=== PATIENT | female | born 1955 | race Caucasian/White ===

== ENCOUNTER → 2016-08-10 | Outpatient (CLI) | payer MEDICARE ==
--- NOTE | 2016-08-14 08:14 | MM ---
Reason for exam: screening (asymptomatic). Last mammogram was performed 2 years and 3 months ago. History: Patient is postmenopausal and is nulliparous. Physical Findings: A clinical breast exam by your physician is recommended on an annual basis and results should be correlated with mammographic findings. MG Screening Mammo w CAD Bilateral CC and MLO view(s) were taken. Prior study comparison: May 17, 2014, bilateral MG screening mammo w CAD. June 09, 2012, bilateral digital screening mammo w/CAD. June 04, 2011, bilateral digital screening mammo w/CAD. The breast tissue is heterogeneously dense. This may lower the sensitivity of mammography. There is no discrete abnormality. No significant changes when compared with prior studies. ASSESSMENT: Negative, BI-RAD 1 RECOMMENDATION: Routine screening mammogram of both breasts in 1 year.
== END | disposition home or self-care (01) ==
LOC: RADMAMWWP 12:56
PROVIDERS: ATTEND Internal Medicine
DX: Z12.31 Encounter for screening mammogram for malignant neoplasm of breast (principal)

== ENCOUNTER → 2017-08-28 | Outpatient (CLI) | payer MEDICARE, OTHER ==
--- NOTE | 2017-08-29 13:03 | MM ---
Reason for exam: screening (asymptomatic). Last mammogram was performed 1 year and 1 month ago. History: Patient is postmenopausal and is nulliparous. Physical Findings: A clinical breast exam by your physician is recommended on an annual basis and results should be correlated with mammographic findings. MG 3D Screening Mammo W/Cad Bilateral CC and MLO view(s) were taken. Prior study comparison: August 10, 2016, bilateral MG screening mammo w CAD. May 17, 2014, bilateral MG screening mammo w CAD. The breast tissue is heterogeneously dense. This may lower the sensitivity of mammography. Stable benign calcifications. There is chronic nodularity in the right breast. No significant changes when compared with prior studies. ASSESSMENT: Benign, BI-RAD 2 RECOMMENDATION: Routine screening mammogram of both breasts in 1 year.
== END | disposition home or self-care (01) ==
LOC: RADMAMWWP 12:54
PROVIDERS: ATTEND Internal Medicine
DX: Z12.31 Encounter for screening mammogram for malignant neoplasm of breast (principal)
CPT/HCPCS: 77063; 77067

== ENCOUNTER → 2018-08-29 | Outpatient (CLI) | payer MEDICARE, OTHER ==
--- NOTE | 2018-09-02 09:35 | MM ---
Reason for exam: screening (asymptomatic). Last mammogram was performed 1 year ago. History: Patient is postmenopausal and is nulliparous. Physical Findings: A clinical breast exam by your physician is recommended on an annual basis and results should be correlated with mammographic findings. MG 3D Screening Mammo W/Cad Bilateral CC and MLO view(s) were taken. Prior study comparison: August 28, 2017, bilateral MG 3d screening mammo w/cad. August 10, 2016, bilateral MG screening mammo w CAD. The breast tissue is heterogeneously dense. This may lower the sensitivity of mammography. There is chronic nodularity in the right breast. No significant changes when compared with prior studies. ASSESSMENT: Negative, BI-RAD 1 RECOMMENDATION: Routine screening mammogram of both breasts in 1 year.
== END ==
LOC: RADMAMWWP 12:34
PROVIDERS: ATTEND Internal Medicine
DX: Z12.31 Encounter for screening mammogram for malignant neoplasm of breast (principal)
CPT/HCPCS: 77063; 77067

== ENCOUNTER → 2018-10-23 | Outpatient (CLI) | payer MEDICARE, OTHER ==
--- NOTE | 2018-10-23 15:11 | XR ---
EXAMINATION TYPE: XR chest 2V DATE OF EXAM: 10/23/2018 COMPARISON: 05/13/2013 TECHNIQUE: PA and lateral views submitted. HISTORY: Shortness of breath FINDINGS: The lungs are clear and there is no pneumothorax, pleural effusion, or focal pneumonia. Linear righ t perihilar subsegmental density most typical scar or atelectasis. No overt failure. Mild degenerativ e change of the spine. IMPRESSION: 1. No acute process.
== END | disposition home or self-care (01) ==
LOC: RADXRMAIN 14:37
PROVIDERS: ATTEND Internal Medicine
DX: R06.02 Shortness of breath (principal)
CPT/HCPCS: 71046

== ENCOUNTER → 2020-09-13 | Outpatient (CLI) | payer MEDICARE ==
[2020-09-13 12:09] LABS: HCT 41.4 % (34.0-46.0); HGB 13.6 gm/dL (11.4-16.0); MCH 30.2 pg (25.0-35.0); MCHC 32.8 g/dL (31.0-37.0); MCV 92.1 fL (80.0-100.0); Mean Platelet Volume 7.3; Platelet Count 181 k/uL (150-450); RBC 4.49 m/uL (3.80-5.40); RDW 12.7 % (11.5-15.5); WBC 4.9 k/uL (3.8-10.6)
[2020-09-13 12:16] LABS: Potassium 4.9 mmol/L (3.5-5.1)
== END ==
LOC: LABPAT 11:30
PROVIDERS: ATTEND Internal Medicine Cardiovascular Disease
DX: Z01.812 Encounter for preprocedural laboratory examination (principal); R94.39 Abnormal result of other cardiovascular function study
CPT/HCPCS: 36415; 80051; 82565; 83735; 84520; 85027

== ENCOUNTER 2020-09-14 06:26 | Day surgery (SDC) | payer MEDICARE, OTHER ==
[2020-09-13 13:24] VITALS: BMI 34.9
[~2020-09-14 06:26] MED LIST: ALPRAZolam 0.25 MG TAB PO PRN; ALPRAZolam 0.5 MG TAB PO PRN; NITROGLYCERIN SL TABS 0.4 MG TAB SUBLINGUAL PRN; SODIUM CHLORIDE 0.9% 1,000 ML in EMPTY BAG 1 BAG IV ONE
[2020-09-14] MEDS ORDERED: ATORVASTATIN 80 MG TAB PO ONE (07:00)
[2020-09-14] MEDS ORDERED: ASPIRIN 325 MG TAB PO ONE (07:00)
[2020-09-14 07:06] VITALS: RESP 18; TEMP 98.6
[2020-09-14] MEDS ORDERED: VERAPAMIL 2.5 MG/ML 2 ML AMP ONE (08:01)
[2020-09-14] MEDS ORDERED: LIDOCAINE 1% INJ 10MG/ML (20 ML MDV) ONE (08:01)
[2020-09-14] MEDS ORDERED: fentaNYL (PF) 50 MCG/ML 2 ML AMP ONE (08:11)
[2020-09-14] MEDS ORDERED: fentaNYL (PF) 50 MCG/ML 2 ML AMP IV ONE (08:15)
[2020-09-14] MEDS ORDERED: LIDOCAINE 1% INJ 10MG/ML (20 ML MDV) SQ ONE (08:16)
[2020-09-14] MEDS ORDERED: VERAPAMIL SYRINGE (5 MG/10 ML) INTRAARTER ONE (08:17)
[2020-09-14] MEDS ORDERED: MIDAZOLAM 2 MG/2 ML VIAL IV ONE (08:20)
[2020-09-14] MEDS ORDERED: HEPARIN SODIUM 1,000 UN/ML (10ML VL) ONE (08:22)
[2020-09-14] MEDS ORDERED: IOPAMIDOL-370 125ML BTL INJ ONE (08:26)
[2020-09-14] MEDS ORDERED: HEPARIN SODIUM 1,000 UN/ML (10ML VL) IV ONE (08:26)
[2020-09-14] MEDS ORDERED: RX INFO: IV CONTRAST WAS GIVEN 1 EACH MISC MISCELLANE PRN (08:37)
[2020-09-14] MEDS ORDERED: SODIUM CHLORIDE 0.9% 1,000 ML IV SCH (08:45)
[2020-09-14] MEDS ORDERED: PERPHENAZINE 4 MG TAB PO SCH (09:00)
[2020-09-14] MEDS ORDERED: NON FORMULARY DRUG (Rosuvastatin Calcium [Rosuvastatin Calcium] 5 MG Tablet) PO SCH (09:00)
[2020-09-14] MEDS ORDERED: PANTOPRAZOLE 40 MG TABLET PO SCH (09:00)
[2020-09-14] MEDS ORDERED: GABAPENTIN 400 MG CAP PO SCH (09:00)
[2020-09-14] MEDS ORDERED: LEVOTHYROXINE 88 MCG TAB PO SCH (09:00)
[2020-09-14] MEDS ORDERED: PROCHLORPERAZINE 10 MG TAB PO SCH (09:00)
--- NOTE | 2020-09-14 09:30 | CC ---
CARDIAC CATHETERIZATION REPORT Mrs. Richardson is a 65-year-old female with known history of hyperlipidemia, who has been complaining of chest discomfort and had a myocardial perfusion imaging that revealed a partially reversible inferior wall defect. In view of that, recommendation was made regarding cardiac catheterization. The procedure as well as the risks and complications were discussed with the patient who is in full understanding and agreement. PROCEDURE: Patient was brought to the collaborating supervising physician in a fasting semi-sedated state after receiving fentanyl and Benadryl and achieving moderate conscious sedated state. Using Xylocaine anesthesia and Seldinger technique, a 6-Tunisian sheath was introduced in the right radial artery. Selective right and left coronary angiography performed using 5-Tunisian 3.5 bend right and left Josefa catheter. Multiple views of the coronary artery including hemiaxial views were obtained. The right Josefa was used to cross the aortic valve and left ventricular end-diastolic pressure was calculated. Following that, catheter and sheath were removed. Hemostasis was obtained with deployment of TR band. There was no immediate complication. The patient was returned to her room in stable condition. Of note, the patient received 5000 units of intravenous heparin as well as intra-arterial verapamil. FINDINGS: LEFT MAIN: This is a short size vessel, bifurcating in left circumflex, left anterior descending artery. The left main coronary artery has no evidence of high-grade stenosis. LEFT ANTERIOR DESCENDING ARTERY: This vessel gives rise to a very proximal large diagonal branch that is acting up as a parallel LAD. The diagonal branch and the LAD have no evidence of high-grade stenosis. LEFT CIRCUMFLEX: This is a large nondominant vessel giving rise to 2 obtuse marginal branches. The second one is distal in distribution. The left circumflex as well as branches have no evidence of obstructive coronary artery disease. RIGHT CORONARY ARTERY: This is a large dominant vessel bifurcating distally PDA and posterolateral segment and branches. The right coronary artery as well as branches have no evidence of obstructive coronary disease. LEFT VENTRICULOGRAM: Left ventriculogram was not performed. HEMODYNAMICS: There was no gradient across the aortic valve. The left ventricular end-diastolic pressure was 14-16 mmHg. CONCLUSION: 1. Normal coronary arteries. 2. Right dominance. RECOMMENDATION: In view of finding anatomy, I recommend to continue medical therapy with aggressive coronary risk modifications being initiated. Those findings and recommendation were discussed with the patient and she is in full understanding and agreement. Duration of sedation is 12 minutes. MMODL / IJN: [id number] /
--- NOTE | 2020-09-14 09:34 | LTR ---
September 14, 2020 Re: Ofelia Richardson Dear Dr. Canales: I had the opportunity to perform cardiac catheterization on Mrs. Richardson at [facility] on the 14 of September and a full copy of the procedure note will be forwarded to you. In brief, she was found to have no evidence of high grade stenosis and based on those findings, I will continue on the present medical regimen. Thank you again for allowing me the opportunity to participate in her care. Please feel free to call for any questions or concerns. Sincerely yours, Mario Schrader MD MMEZRAL / JAMAALN: [id number] /
[2020-09-14] MEDS ORDERED: SUCRALFATE 1 GM TAB PO SCH (12:30)
[2020-09-14 12:48] VITALS: BP 114/72; PULSE 72
[2020-09-14] MEDS ORDERED: CYCLOBENZAPRINE 10 MG TAB PO SCH (21:00)
[2020-09-14] MEDS ORDERED: clonazePAM 0.5 MG TAB PO SCH (21:00)
[2020-09-14] MEDS ORDERED: NON FORMULARY DRUG (Trazodone Hcl [Trazodone Hcl] 150 MG Tablet) PO SCH (21:00)
[2020-09-14] MEDS ORDERED: QUEtiapine 400 MG TAB PO SCH (21:00)
[2020-09-14] MEDS ORDERED: MELATONIN 3 MG TABLET PO SCH (21:00)
[2020-09-15] MEDS ORDERED: ASPIRIN 81 MG PO SCH (09:00)
== END 2020-09-14 12:35 | disposition home or self-care (01) ==
LOC: CATHCVL 06:26
PROVIDERS: ATTEND Internal Medicine Interventional Cardiology
DX: R07.89 Other chest pain (principal); R06.00 Dyspnea, unspecified; R94.39 Abnormal result of other cardiovascular function study; E78.2 Mixed hyperlipidemia; E78.00 Pure hypercholesterolemia, unspecified; Z79.1 Long term (current) use of non-steroidal anti-inflammatories (NSAID); Z79.82 Long term (current) use of aspirin; Z79.890 Hormone replacement therapy; Z79.899 Other long term (current) drug therapy
CPT/HCPCS: 93458; C1769; C1894; J2250; J2001; J3010; J1644; Q9967

== ENCOUNTER → 2021-01-26 | Outpatient (CLI) | payer MEDICARE, OTHER ==
--- NOTE | 2021-01-27 13:34 | MM ---
Reason for exam: screening (asymptomatic). Last mammogram was performed 2 years and 5 months ago. History: Patient is postmenopausal and is nulliparous. Physical Findings: A clinical breast exam by your physician is recommended on an annual basis and results should be correlated with mammographic findings. MG 3D Screening Mammo W/Cad Bilateral CC and MLO view(s) were taken. Prior study comparison: August 29, 2018, bilateral MG 3d screening mammo w/cad. August 28, 2017, bilateral MG 3d screening mammo w/cad. The breast tissue is heterogeneously dense. This may lower the sensitivity of mammography. Benign appearing bilateral calcifications. There is chronic nodularity in the right breast. No significant changes when compared with prior studies. ASSESSMENT: Benign, BI-RAD 2 RECOMMENDATION: Routine screening mammogram of both breasts in 1 year.
== END | disposition home or self-care (01) ==
LOC: RADMAMWWP 14:52
PROVIDERS: ATTEND Internal Medicine
DX: Z12.31 Encounter for screening mammogram for malignant neoplasm of breast (principal); Z78.0 Asymptomatic menopausal state
CPT/HCPCS: 77063; 77067

== ENCOUNTER → 2021-10-09 | Outpatient (CLI) | payer MEDICARE, OTHER ==
--- NOTE | 2021-10-09 15:43 | US ---
EXAMINATION TYPE: US venous doppler duplex LE BI DATE OF EXAM: 10/09/2021 3:27 PM COMPARISON: NONE CLINICAL HISTORY: 66-year-old female M79.662, M79.661 PAIN IN BOTH LOWER LIMBS. SIDE PERFORMED: Bilateral TECHNIQUE: The lower extremity deep venous system is examined utilizing real time linear array sonog danny with graded compression, doppler sonography and color-flow sonography. FINDINGS: VESSELS IMAGED: Common Femoral Vein Deep Femoral Vein Greater Saphenous Vein * Femoral Vein Popliteal Vein Small Saphenous Vein * Proximal Calf Veins (* superficial vessels) Right Leg: Negative for DVT Left Leg: Negative for DVT IMPRESSION: No evidence for DVT within the bilateral lower extremities imaged from the groin to the upper calves.
== END | disposition home or self-care (01) ==
LOC: RADUSWWP 14:35
PROVIDERS: ATTEND Internal Medicine
DX: M79.662 Pain in left lower leg (principal); M79.661 Pain in right lower leg
CPT/HCPCS: 93970

== ENCOUNTER → 2022-02-01 | Outpatient (CLI) | payer MEDICARE ==
--- NOTE | 2022-02-02 14:11 | MM ---
Reason for Exam: Screening (asymptomatic). Last screening mammogram was performed 12 month(s) ago. Patient History: Menarche at age 13. Patient has no children. Postmenopausal. Risk Values: Julieta 5 year model risk: 1.8%. NCI Lifetime model risk: 6.9%. Prior Study Comparison: 08/28/2017 Bilateral Screening Mammogram, [facility]. 08/29/2018 Bilateral Screening Mammogram, [facility]. 01/26/2021 Bilateral Screening Mammogram, [facility]. Tissue Density: The breast tissue is heterogeneously dense. This may lower the sensitivity of mammography. Findings: Analyzed By CAD. There is no suspicious group of microcalcifications or new suspicious mass in either breast. Benign-appearing bilateral calcifications. Chronic nodularity in the right breast. No significant change from prior examination. Overall Assessment: Benign, BI-RAD 2 Management: Screening Mammogram of both breasts in 1 year. A clinical breast exam by your physician is recommended on an annual basis and results should be correlated with mammographic findings. Electronically signed and approved by: Neno Peguero D.O.
== END | disposition home or self-care (01) ==
LOC: RADMAMWWP 14:11
PROVIDERS: ATTEND Internal Medicine
DX: Z12.31 Encounter for screening mammogram for malignant neoplasm of breast (principal); Z78.0 Asymptomatic menopausal state
CPT/HCPCS: 77063; 77067

== ENCOUNTER 2023-10-16 20:00 | Observation (INO) | payer MEDICARE, OTHER ==
--- NOTE | 2023-10-16 20:25 | ED ---
Altered Mental Status HPI - General Chief Complaint: Altered Mental Status Stated Complaint: Altered mental status Time Seen by Provider: 10/16/23 20:06 Source: patient, EMS, RN notes reviewed, old records reviewed, Caregiver Mode of arrival: EMS Limitations: altered mental status, physical limitation - History of Present Illness Initial Comments: This is a 68-year-old female to the ER for evaluation of altered mental status. Patient presents today for unknown cause, EMS states patient is very confused, patient is unable to contribute to history of present illness currently MD Complaint: altered mental status, confusion, other (Fever patient does have feel warm to touch) -: unknown Severity: severe Consistency of Symptoms: getting worse Associated Symptoms: weakness Treatments Prior to Arrival: IV fluid - Related Data Home Medications Medication Instructions Recorded Confirmed Gabapentin [Neurontin] 400 mg PO TID 09/13/20 10/17/23 Levothyroxine Sodium [Synthroid] 88 mcg PO DAILY 09/13/20 10/17/23 Pantoprazole Sodium 40 mg PO DAILY 09/13/20 10/17/23 Prochlorperazine [Compazine] 10 mg PO Q12H PRN 09/13/20 10/17/23 Rosuvastatin Calcium 5 mg PO DAILY 09/13/20 10/17/23 Sucralfate [Carafate] 1 gm PO ACHS 09/13/20 10/17/23 clonazePAM 0.5 mg PO HS 09/13/20 10/17/23 traZODone HCL 300 mg PO HS 09/13/20 10/17/23 Acetaminophen with Codeine 1 tab PO Q12H PRN 10/17/23 10/17/23 [Tylenol w/Codeine #2 Tablet] Perphenazine 8mg 8 mg PO BID 10/17/23 10/17/23 Vitamin E (Dl,Tocopheryl Acet) 400 unit PO DAILY 10/17/23 10/17/23 [Vitamin E (400 Iu = 180 mg)] Previous Rx's Medication Instructions Recorded Aspirin 81 mg PO DAILY #30 tab 10/19/23 Nystatin 100,000 Unit/gm Powd 1 applic TOPICAL BID #1 each 10/19/23 [Mycostatin Powder] QUEtiapine [SEROquel] 100 mg PO HS #30 tab 10/19/23 cefUROXime axetiL [Ceftin] 500 mg PO BID 7 Days #14 tab 10/19/23 Allergies Allergy/AdvReac Type Severity Reaction Status Date / Time No Known Allergies Allergy Verified 10/17/23 07:29 Review of Systems ROS Statement: Those systems with pertinent positive or pertinent negative responses have been documented in the HPI. ROS Other: All systems not noted in ROS Statement are negative. Past Medical History Past Medical History: No Reported History History of Any Multi-Drug Resistant Organisms: None Reported Past Surgical History: No Surgical Hx Reported Past Psychological History: Unable to Obtain Smoking Status: Unknown if ever smoked Past Alcohol Use History: None Reported Past Drug Use History: None Reported - Past Family History Mother Family Medical History: COPD Father Additional Family Medical History / Comment(s): CAD, - unknown cause to patient General Exam Limitations: no limitations General appearance: alert, in no apparent distress Head exam: Present: atraumatic, normocephalic, normal inspection Eye exam: Present: normal appearance, PERRL, EOMI. Absent: scleral icterus, conjunctival injection, periorbital swelling ENT exam: Present: normal exam, mucous membranes moist Neck exam: Present: normal inspection. Absent: tenderness, meningismus, lymphadenopathy Respiratory exam: Present: normal lung sounds bilaterally. Absent: respiratory distress, wheezes, rales, rhonchi, stridor Cardiovascular Exam: Present: regular rate, normal rhythm, normal heart sounds. Absent: systolic murmur, diastolic murmur, rubs, gallop, clicks GI/Abdominal exam: Present: soft, normal bowel sounds. Absent: distended, tenderness, guarding, rebound, rigid Extremities exam: Present: normal inspection, full ROM, normal capillary refill. Absent: tenderness, pedal edema, joint swelling, calf tenderness Back exam: Present: normal inspection Neurological exam: Present: alert, oriented X3, CN II-XII intact Psychiatric exam: Present: normal affect, normal mood Skin exam: Present: warm, dry, intact, normal color. Absent: rash Course Vital Signs 10/16/23 10/16/23 10/17/23 20:20 21:15 00:27 Temperature 102 F H 99.7 F H 98.5 F Pulse Rate 104 H 98 92 Respiratory 20 16 18 Rate Blood Pressure 117/96 143/78 144/76 O2 Sat by Pulse 91 L 95 96 Oximetry 10/17/23 10/17/23 10/17/23 04:13 07:02 10:08 Temperature 98.1 F Pulse Rate 70 90 92 Respiratory 18 18 18 Rate Blood Pressure 102/64 146/95 146/78 O2 Sat by Pulse 93 L 94 L 96 Oximetry 10/17/23 12:00 Temperature Pulse Rate Respiratory Rate Blood Pressure 154/86 O2 Sat by Pulse Oximetry - Reevaluation(s) Reevaluation #1: 10/16/23 20:25 Medical records reviewed Reevaluation #2: 10/16/23 22:39 Patient symptoms are mildly improving but still confused unsure of baseline 10/16/23 22:39 Patient continues to reiterate that she does not want to be admitted to the hospital Reevaluation #3: 10/16/23 22:39 Patient informed of results and questions answered Reevaluation #4: Was pt. sent in by a medical professional or institution (JESSEE Duncan, MECHANICAL METER TESTER, urgent c are, hospital, or prison...) When possible be specific @ -no Did you speak to anyone other than the patient for history (EMS, parent, family, police, friend...)? What history was obtained from this source @ -no Did you review nursing and triage notes (agree or disagree)? Why? @ -agree Are old charts reviewed (outside hosp., previous admission, EMS record, old EKG, old radiological studies, urgent care reports/EKG's, prison records)? Report findings @ -yes Differential Diagnosis (chest pain, altered mental status, abdominal pain women, abdominal pain men, vaginal bleeding, weakness, fever, dyspnea, syncope, headache, dizziness, GI bleed, back pain, seizure, CVA, palpatations, mental health, musculoskeletal)? @ -prior EKG interpreted by me (3pts min.). @ -yes X-rays interpreted by me (1pt min.). @ -yes negative for acute disease CT interpreted by me (1pt min.). @ -no U/S interpreted by me (1pt. min.). @ -no What testing was considered but not performed or refused? (CT, X-rays, U/S, labs)? Why? @ -none What meds were considered but not given or refused? Why? @ -none Did you discuss the management of the patient with other professionals (professionals i.e. Dr., PA, MECHANICAL METER TESTER, lab, RT, psych nurse, social science analyst, occupational health nursing director, teacher, bsa officer, rn field case manager)? Give summary @ -no Was smoking cessation discussed for >3mins.? @ -no Was critical care preformed (if so, how long)? @ -no Were there social determinants of health that impacted care today? How? (Home lessness, low income, unemployed, alcoholism, drug addiction, transportation, low edu. Level, literacy, decrease access to med. care, long term, rehab)? @ -none Was there de-escalation of care discussed even if they declined (Discuss DNR or withdrawal of care, Hospice)? DNR status @ -no What co-morbidities impacted this encounter? (DM, HTN, Smoking, COPD, CAD, Cancer, CVA, ARF, Chemo, Hep., AIDS, mental health diagnosis, sleep apnea, morbid obesity)? @ -none Was patient admitted / discharged? Hospital course, mention meds given and route, prescriptions, significant lab abnormalities, going to OR and other pertinent info. @ - 68-year-old female on a plethora of psychiatric and other medications coming in for fever with altered mental status petition for altered mental status and remains confused here in the ER although improving with fever control. Patient will be admitted for further evaluation and psychiatric evaluation, rule out bacteremia Admitted Undiagnosed new problem with uncertain prognosis? @ -no Drug Therapy requiring intensive monitoring for toxicity (Heparin, Nitro, Insu marco antonio, Cardizem)? @ -no Were any procedures done? @ -no Diagnosis/symptom? @ -Fever with altered mental status Acute, or Chronic, or Acute on Chronic? @ -Acute Uncomplicated (without systemic symptoms) or Complicated (systemic symptoms)? @ -Complicated Side effects of treatment? @ -no Exacerbation, Progression, or Severe Exacerbation? @ -exacerbation Poses a threat to life or bodily function? How? (Chest pain, USA, GA, pneumonia, PE, COPD, DKA, ARF, appy, cholecystitis, CVA, Diverticulitis, Homicidal, Suicidal, threat to staff... and all critical care pts) @ -yes with frequent fever and altered mental status e Reevaluation #5: Differential Fever: Pneumonia, viral URI, endocarditis, myocarditis, pericarditis, otitis, sinusitis, peritonsillar Abscess, retropharyngeal Abscess, epiglottitis, peritonitis, appendicitis, Myesha cystitis, diverticulitis, hepatitis, colitis, UTI, PID, TOA, pyelonephritis, prostatitis, epididymitis, meningitis, encephalitis, pulmonary embolism, CVA, thyroid storm, pancreatitis, adrenal crisis, cavernous sinus thrombosis, this is not meant to be an all-inclusive list. - Consultations Consultation #1: Spoke with [facility] who agrees to admit the patient Medical Decision Making - Medical Decision Making 68-year-old female on a plethora of psychiatric and other medications coming in for fever with altered mental status petition for altered mental status and remains confused here in the ER although improving with fever control. Patient will be admitted for further evaluation and psychiatric evaluation, rule out bacteremia - Lab Data Result diagrams: 10/17/23 06:45 10/17/23 06:45 Lab Results 10/16/23 10/16/23 10/16/23 Range/Units 20:40 21:00 21:00 WBC 7.7 (3.8-10.6) k/uL RBC 4.48 (3.80-5.40) m/uL Hgb 13.2 (11.4-16.0) gm/dL Hct 41.9 (34.0-46.0) % MCV 93.6 (80.0-100.0) fL MCH 29.5 (25.0-35.0) pg MCHC 31.6 (31.0-37.0) g/dL RDW 12.6 (11.5-15.5) % Plt Count 149 L (150-450) k/uL MPV 8.4 Neutrophils % 89 % Lymphocytes % 4 % Monocytes % 6 % Eosinophils % 1 % Basophils % 0 % Neutrophils # 6.8 (1.3-7.7) k/uL Lymphocytes # 0.3 L (1.0-4.8) k/uL Monocytes # 0.4 (0-1.0) k/uL Eosinophils # 0.1 (0-0.7) k/uL Basophils # 0.0 (0-0.2) k/uL Sodium 138 (137-145) mmol/L Potassium 4.1 (3.5-5.1) mmol/L Chloride 102 (98-107) mmol/L Carbon Dioxide 27 (22-30) mmol/L Anion Gap 9 mmol/L BUN 19 H (7-17) mg/dL Creatinine 1.11 H (0.52-1.04) mg/dL Est GFR (CKD-EPI)AfAm 60 (>60 ml/min/1.73 sqM) Est GFR (CKD-EPI)NonAf 52 (>60 ml/min/1.73 sqM) Glucose 112 H (74-99) mg/dL Plasma Lactic Acid Chavo (0.7-2.0) mmol/L Calcium 9.2 (8.4-10.2) mg/dL Phosphorus 2.5 (2.5-4.5) mg/dL Magnesium 1.4 L (1.6-2.3) mg/dL Total Bilirubin 0.6 (0.2-1.3) mg/dL AST 26 (14-36) U/L ALT 21 (4-34) U/L Alkaline Phosphatase 80 (38-126) U/L Total Protein 7.2 (6.3-8.2) g/dL Albumin 4.4 (3.5-5.0) g/dL Urine Color Urine Appearance (Clear) Urine pH (5.0-8.0) Ur Specific [place] (1.001-1.035) Urine Protein (Negative) Urine Glucose (UA) (Negative) Urine Ketones (Negative) Urine Blood (Negative) Urine Nitrite (Negative) Urine Bilirubin (Negative) Urine Urobilinogen (<2.0) mg/dL Ur Leukocyte Esterase (Negative) Influenza Type A (PCR) Not Detected (Not Detectd) Influenza Type B (PCR) Not Detected (Not Detectd) RSV (PCR) Not Detected (Not Detectd) SARS-CoV-2 (PCR) Not Detected (Not Detectd) 10/16/23 10/16/23 Range/Units 21:05 21:20 WBC (3.8-10.6) k/uL RBC (3.80-5.40) m/uL Hgb (11.4-16.0) gm/dL Hct (34.0-46.0) % MCV (80.0-100.0) fL MCH (25.0-35.0) pg MCHC (31.0-37.0) g/dL RDW (11.5-15.5) % Plt Count (150-450) k/uL MPV Neutrophils % % Lymphocytes % % Monocytes % % Eosinophils % % Basophils % % Neutrophils # (1.3-7.7) k/uL Lymphocytes # (1.0-4.8) k/uL Monocytes # (0-1.0) k/uL Eosinophils # (0-0.7) k/uL Basophils # (0-0.2) k/uL Sodium (137-145) mmol/L Potassium (3.5-5.1) mmol/L Chloride (98-107) mmol/L Carbon Dioxide (22-30) mmol/L Anion Gap mmol/L BUN (7-17) mg/dL Creatinine (0.52-1.04) mg/dL Est GFR (CKD-EPI)AfAm (>60 ml/min/1.73 sqM) Est GFR (CKD-EPI)NonAf (>60 ml/min/1.73 sqM) Glucose (74-99) mg/dL Plasma Lactic Acid Chavo 1.2 (0.7-2.0) mmol/L Calcium (8.4-10.2) mg/dL Phosphorus (2.5-4.5) mg/dL Magnesium (1.6-2.3) mg/dL Total Bilirubin (0.2-1.3) mg/dL AST (14-36) U/L ALT (4-34) U/L Alkaline Phosphatase (38-126) U/L Total Protein (6.3-8.2) g/dL Albumin (3.5-5.0) g/dL Urine Color Light Yellow Urine Appearance Clear (Clear) Urine pH 6.0 (5.0-8.0) Ur Specific [place] 1.020 (1.001-1.035) Urine Protein Trace H (Negative) Urine Glucose (UA) Negative (Negative) Urine Ketones Negative (Negative) Urine Blood Negative (Negative) Urine Nitrite Negative (Negative) Urine Bilirubin Negative (Negative) Urine Urobilinogen <2.0 (<2.0) mg/dL Ur Leukocyte Esterase Negative (Negative) Influenza Type A (PCR) (Not Detectd) Influenza Type B (PCR) (Not Detectd) RSV (PCR) (Not Detectd) SARS-CoV-2 (PCR) (Not Detectd) - Radiology Data Radiology results: report reviewed (Chest x-ray is negative for acute disease), image reviewed Disposition Clinical Impression: Altered mental status, Fever, Delirium due to general medical condition Disposition: ADMITTED IP TO THIS HOSP Condition: Fair Is patient prescribed a controlled substance at d/c from ED?: No
[2023-10-16] MEDS: ACETAMINOPHEN TAB 500 MG TAB PO STA (20:46)
[2023-10-16] MEDS: IBUPROFEN 600 MG TAB PO STA (20:46)
[2023-10-16] MEDS: SODIUM CHLORIDE 0.9% 1,000 ML IV STA ×2 (20:50→23:22)
[2023-10-16 21:05] LABS: Basophils % (A) 0 %; Eosinophils # (A) 0.1 k/uL (0-0.7); Eosinophils % (A) 1 %; HCT 41.9 % (34.0-46.0); HGB 13.2 gm/dL (11.4-16.0); Lymphocytes # (A) 0.3 k/uL (1.0-4.8); Lymphocytes % (A) 4 %; MCH 29.5 pg (25.0-35.0); MCHC 31.6 g/dL (31.0-37.0); MCV 93.6 fL (80.0-100.0); Mean Platelet Volume 8.4; Monocytes # (A) 0.4 k/uL (0-1.0); Monocytes % (A) 6 %; Neutrophils # (A) 6.8 k/uL (1.3-7.7); Neutrophils % (A) 89 %; Platelet Count 149 k/uL (150-450); RBC 4.48 m/uL (3.80-5.40); RDW 12.6 % (11.5-15.5); WBC 7.7 k/uL (3.8-10.6)
[2023-10-16 21:26] LABS: ALT 21 U/L (4-34); AST 26 U/L (14-36); African American GFR (CKD) 60 (>60 ml/min/1.73 sqM); Albumin 4.4 g/dL (3.5-5.0); Alkaline Phosphatase 80 U/L (38-126); Anion Gap 9 mmol/L; Blood Urea Nitrogen 19 mg/dL (7-17); Calcium 9.2 mg/dL (8.4-10.2); Carbon Dioxide 27 mmol/L (22-30); Chloride 102 mmol/L (98-107); Glucose 112 mg/dL (74-99); Magnesium 1.4 mg/dL (1.6-2.3); Non-African American GFR(CKD) 52 (>60 ml/min/1.73 sqM); Phosphorus 2.5 mg/dL (2.5-4.5); Potassium 4.1 mmol/L (3.5-5.1); Sodium 138 mmol/L (137-145); Total Bilirubin 0.6 mg/dL (0.2-1.3); Total Protein 7.2 g/dL (6.3-8.2)
--- NOTE | 2023-10-16 21:49 | XR ---
EXAM: XR chest 1V portable CLINICAL INDICATION:Female, 68 years old with history of weak; [facility] COMPARISON: None. TECHNIQUE: Chest single view. FINDINGS: Lines/tubes/devices: EKG leads overlie the chest. No indwelling lines are seen. Cardiomediastinum: Cardiac silhouette appears normal in size. Unremarkable mediastinal silhouette. Vasculature: No increased pulmonary vasculature. Lungs/pleura: No consolidation, sizeable effusion, or visible pneumothorax. Minimal bibasilar atelectasis. Bones/soft tissues: Bony thorax appears grossly intact as seen, with mild degenerative changes. Regional soft tissues montserrat ear unremarkable. IMPRESSION: No acute cardiopulmonary findings.
[2023-10-16 21:58] LABS: Appearance,Urine Clear (Clear); Bilirubin,Urine Negative (Negative); Blood,Urine Negative (Negative); Color,Urine Light Yellow; Glucose,Urine (UA) Negative (Negative); Ketones,Urine Negative (Negative); Leukocyte Esterase,Urine Negative (Negative); Nitrite,Urine Negative (Negative); Protein,Urine Trace (Negative); Urobilinogen,Urine <2.0 mg/dL (<2.0)
[2023-10-16] MEDS: LORazepam 2 MG/ML INJ IV STA (22:14)
[2023-10-16] MEDS: diphenhydrAMINE 50 MG/ML 1 ML VIAL IVP STA (22:15)
[2023-10-16] MEDS ORDERED: ONDANSETRON 4 MG/2 ML VIAL IVP PRN (22:36)
[2023-10-16] MEDS ORDERED: MORPHINE SULFATE 4 MG/ML SYRINGE IV PRN (22:36)
[2023-10-16] MEDS ORDERED: NALOXONE 0.4 MG/ML 1 ML VIAL IV PRN (22:36)
[2023-10-16] MEDS: GABAPENTIN 400 MG CAP PO STA (22:44)
[2023-10-16] MEDS: traZODone HCL 100 MG TAB PO SCH (22:44)
[2023-10-16] MEDS: CYCLOBENZAPRINE 10 MG TAB PO SCH ×2 (23:12→23:23)
[2023-10-16] MEDS: SODIUM CHLORIDE 0.9% 1,000 ML IV SCH (23:23)
[2023-10-17] MEDS: QUEtiapine 400 MG TAB PO SCH (00:22)
[2023-10-17 07:03] LABS: Basophils % (A) 0 %; Eosinophils # (A) 0.1 k/uL (0-0.7); Eosinophils % (A) 1 %; HCT 40.5 % (34.0-46.0); HGB 12.5 gm/dL (11.4-16.0); Lymphocytes # (A) 0.7 k/uL (1.0-4.8); Lymphocytes % (A) 15 %; MCH 29.5 pg (25.0-35.0); MCHC 30.7 g/dL (31.0-37.0); MCV 95.8 fL (80.0-100.0); Mean Platelet Volume 8.5; Monocytes # (A) 0.6 k/uL (0-1.0); Monocytes % (A) 12 %; Neutrophils # (A) 3.4 k/uL (1.3-7.7); Neutrophils % (A) 69 %; Platelet Count 141 k/uL (150-450); RBC 4.23 m/uL (3.80-5.40); RDW 12.6 % (11.5-15.5); WBC 4.9 k/uL (3.8-10.6)
[2023-10-17] MEDS: LEVOTHYROXINE 88 MCG TAB PO SCH (07:09)
[2023-10-17] MEDS: SUCRALFATE 1 GM TAB PO SCH (07:09)
[2023-10-17 07:13] LABS: ALT 17 U/L (4-34); AST 19 U/L (14-36); African American GFR (CKD) 64 (>60 ml/min/1.73 sqM); Albumin 3.4 g/dL (3.5-5.0); Alkaline Phosphatase 67 U/L (38-126); Anion Gap 7 mmol/L; Blood Urea Nitrogen 17 mg/dL (7-17); Calcium 8.4 mg/dL (8.4-10.2); Carbon Dioxide 25 mmol/L (22-30); Chloride 109 mmol/L (98-107); Glucose 99 mg/dL (74-99); Magnesium 1.6 mg/dL (1.6-2.3); Non-African American GFR(CKD) 55 (>60 ml/min/1.73 sqM); Phosphorus 4.1 mg/dL (2.5-4.5); Potassium 3.5 mmol/L (3.5-5.1); Sodium 141 mmol/L (137-145); Total Bilirubin 0.5 mg/dL (0.2-1.3); Total Protein 5.8 g/dL (6.3-8.2)
[2023-10-17] MEDS: ATORVASTATIN 10 MG TAB PO SCH (10:36)
[2023-10-17] MEDS: PANTOPRAZOLE 40 MG TABLET PO SCH (10:36)
[2023-10-17] MEDS: MELOXICAM 7.5 MG TAB PO SCH (10:36)
[2023-10-17] MEDS: ASPIRIN 81 MG PO SCH (10:36)
[2023-10-17] MEDS: GABAPENTIN 400 MG CAP PO SCH (10:37)
[2023-10-17] MEDS: PROCHLORPERAZINE 10 MG TAB PO SCH (10:39)
[2023-10-17] MEDS: PERPHENAZINE 4 MG TAB PO SCH (11:12)
--- NOTE | 2023-10-17 14:06 | P.CN ---
Psychiatric Consult - . Consult date: 10/17/23 Consult:: 10/17/23 13:31 IDENTIFYING DATA: This patient is a 68-year-old female currently lives with her boyfriend, has no kids, she is retired used to work for [email or web address] REASON FOR REFERRAL: Psychiatry was consulted for "petition" HISTORY OF PRESENT ILLNESS: The patient presented to the hospital on 10/15 for altered mental status by EMS. Patient was petitioned by police for confusion. Patient was confused on assessment in the ER, was a poor historian. Patient had mildly elevated creatinine and BUN. Electrolytes were within normal limits. Chest x-ray was negative. CT scan was not done. Patient was seen today laying in bed and agreeable to speak to hand sign writer. She was sleeping and awoken. She was hard of hearing. Was fairly pleasant during interaction, somewhat concrete. She correctly identified her name, age date of she knew what month and what year this was correctly. She did not know her current location. She states that she came to the hospital mainly for "pain because of my arthritis" and denies being confused. She states that she lost her cat last week and has been grieving since. States that she is not feeling depressed or anxious however. States that her sleep and appetite are fair at this time. She has been fairly consistent with her medication she claims. She does not have an outpatient psychiatrist however he is to go to [facility]. She appeared to have fair attention span.she was able to recall 1 out of 3 words after 5 minutes. Was able to list the days of the week backwards correctly. At this time patient denies any suicidal or homical ideations, intent or plan. Patient denies any auditory, visual hallucinations and denies any paranoia or delusions. Patients admits to using no recreational drugs or cigarettes PAST PSYCHIATRIC HISTORY: Patient has a a history and unknown psychiatric illness however denies being bipolar or having schizophrenia. Patient is currently on Trilafon, trazodone, melatonin and at home on Klonopin and Seroquel. Patient denies any previous psychiatric hospitalizations. Patient states that she used to follow-up at [facility] however does not currently at this time and follows up with her PCP instead. Patient denies any history of suicide attempts in the past. Past Medical History: No Reported History History of Any Multi-Drug Resistant Organisms: None Reported Past Surgical History: No Surgical Hx Reported Past Psychological History: Unable to Obtain Smoking Status: Unknown if ever smoked Past Alcohol Use History: None Reported Past Drug Use History: None Reported ALLERGIES: as per EMR. CHEMICAL DEPENDENCY HISTORY: as per HPI. FAMILY PSYCHIATRIC/SUBSTANCE USE HISTORY: Denies SOCIAL HISTORY: Patient was born and raised in [facility]. States that she used to work for [employer] however now retired. States that she has 2 years of college and high school. States that she has no kids, she lives with her boyfriend. Denies any legal history. MENTAL STATUS EXAM: General Appearance: Patient appears to be mildly overweight, short hair, stated age is alert, pleasant, and attempts to be cooperative. Patient appears to have fair hygiene and grooming wearing hospital gown with fair eye contact. Hard of hearing Behavior: Patient is calmly lying in bed without any agitated behavior. Attempts to cooperate Speech: Patient's speech is fluent and nonpressured. [place] Mood/Affect: Patient reports their mood is "good", affect is congruent Suicidality/Homicidality: Patient denies having any suicidal or homicidal ideation intent or plan. Perceptions: Patient denies any visual hallucinations and denies any auditory hallucinations Though content/process: There is no evidence of any delusional thought content and thought process is linear and goal-directed. [place] Memory and concentration: AOX3, grossly intact for the purposes of this session. Can spell "WORLD" backwards Judgment and insight: Fair IMPRESSIONS: Delirium, unknown etiology PLAN: -At this time patient DOES NOT meet criteria for inpatient psychiatric admis andres. -Delirium precautions recommended with patient including - avoiding use of narcotics and DENTAL EQUIPMENT REPAIRER sedatives, limit anticholinergic medications when possible, frequent re-orientation, minimize use of restraints, open window shades during the day and close them at night -Would recommend the following medication changes/additions: Unclear as to the cause of the episode of delirium/confusion, would avoid benzodiazepines at this time and anticholinergic medications as this may trigger or precipitate another event. Can continue with current psychiatric medications as prescribed. -drop worker to provide patient with outpatient mental health/psychiatry resources for appropriate follow up upon discharge. Patient was previously at [facility] and was advised to get reestablished/connected with [facility] for further psychiatric care and follow-up -Communicated plan to patient's nurse -Psychiatry will sign off at this time -Please contact with any questions. 10/17/23 13:59
[2023-10-17] MEDS: SODIUM CHLORIDE 0.9% 1,000 ML IV SCH (14:10)
--- NOTE | 2023-10-17 14:42 | P.HPIM ---
History of Present Illness H&P Date: 10/17/23 This is a pleasant 68-year-old female with medical history significant for dyslipidemia, hypothyroidism, arthritis, insomnia, significant mental health history which is unknown at this time. Patient was petitioned by her long-term live-in boyfriend due to concerns for altered mentation and inability to ambulate and care for herself. EMS came to the scene and patient was brought to the hospital for further evaluation. She was admitted for psychiatric consultation. Patient is evaluated she is currently alert x 3 her speech is somewhat slurred but she does have large dentures in her mouth which are fairly new. No focal neurological deficits appreciated. Fever of 102 on admission which prompted a viral panel which was negative for COVID-negative for RSV and negative for influenza and her urinalysis was not suggestive of a urinary tract infection. Chest x-ray is negative for acute cardiopulmonary findings. she is currently denying any cough denies shortness of breath denies nausea vomiting diarrhea she is not having abdominal pain and she denies any dysuria urgency or frequency. Most of the medical history is taken from the patient's sister at the bedside who states that her boyfriend is her main primary caregiver. Sister states that the patient is somewhat estranged from her mother and the rest of the family and was following up with [facility] in the past however she is currently not receiving care there. Dr. Canales is her PCP and manages her medications. Per the sister the patients cat has recently and the patient has been grieving the cat and having a hard time. Per the petition patient has not been taking her medications, although patient denies this. She is maintained on multiple psychiatric medications. Patient denies any alcohol us e, illicit substance use and is nonsmoker. REVIEW OF SYSTEMS: CONSTITUTIONAL: No fever, no malaise, no fatigue. HEENT: No recent visual problems or hearing problems. Denied any sore throat. CARDIOVASCULAR: No chest pain, orthopnea, PND, no palpitations, no syncope. PULMONARY: No shortness of breath, no cough, no hemoptysis. GASTROINTESTINAL: No diarrhea, no nausea, no vomiting, no abdominal pain. NEUROLOGICAL: No headaches, no weakness, no numbness. HEMATOLOGICAL: Denies any bleeding or petechiae. GENITOURINARY: Denies any burning micturition, frequency, or urgency. MUSCULOSKELETAL/RHEUMATOLOGICAL: Denies any joint pain, swelling, or any muscle pain. ENDOCRINE: Denies any polyuria or polydipsia. The rest of the 14-point review of systems is negative. PHYSICAL EXAMINATION: GENERAL: The patient is alert and oriented x3, not in any acute distress. Well developed, well nourished. HEENT: Pupils are round and equally reacting to light. EOMI. No scleral icterus. No conjunctival pallor. Normocephalic, atraumatic. No pharyngeal erythema. No thyromegaly. CARDIOVASCULAR: S1 and S2 present. No murmurs, rubs, or gallops. PULMONARY: Chest is clear to auscultation, no wheezing or crackles. ABDOMEN: Soft, nontender, nondistended, normoactive bowel sounds. No palpable organomegaly. MUSCULOSKELETAL: No joint swelling or deformity. EXTREMITIES: No cyanosis, clubbing, or pedal edema. NEUROLOGICAL: Gross neurological examination did not reveal any focal deficits. SKIN: No rashes. Assessment and Plan -Altered mental status secondary to acute toxic encephalopathy from medication affect, would recommend to cut back on medications and clonazepam, flexeril have been discontinued with decrease in doses of seroquel and gabapentin. Psychiatry has been consulted. Brain CT ordered. Patient has no focal neurological deficits. -Hx of dyslipidemia continued on statin therapy -Hx of hypothyrodism continues on levothyroxine will check TSH level -Fever x 1 of unknown origin, no GI symptom, white blood cell count normal. Viral panel negative. Chest xray and urinalysis nondiagnostic. Check a procalcitonin level. -Generalized weakness and medical debility with underlying history of arthritis. Patient reports difficulty with ambulation she feels mostly due to her arthritis and pain. Physical therapy will be consulted -Hx of osteoarthritis continued on mobic daily and conservative pain management. Avoid narcotics. -Intertrigo of the right groin nystatin power has been ordered -Insomnia maintained on trazadone and seroquel HS. -Mental health history unknown, records are being requested from PCP office. GI prophylaxis DVT prophylaxis Full Code The impression and plan of care has been dictated by Nicole Gray, Nurse Practitioner as directed. Dr. Gianluca MD I have performed a history and physical examination and medical decision making of this patient, discussed the same with the dictator, and agree with the dictators assessment and plan as written, documented as a scribe. Based on total visit time, I have performed more than 50% of this visit. Past Medical History Past Medical History: No Reported History History of Any Multi-Drug Resistant Organisms: None Reported Past Surgical History: No Surgical Hx Reported Past Psychological History: Unable to Obtain Smoking Status: Unknown if ever smoked Past Alcohol Use History: None Reported Past Drug Use History: None Reported Medications and Allergies Home Medications Medication Instructions Recorded Confirmed Type Cyclobenzaprine [Flexeril] 10 mg PO HS 09/13/20 10/17/23 History Gabapentin [Neurontin] 400 mg PO TID 09/13/20 10/17/23 History Levothyroxine Sodium [Synthroid] 88 mcg PO DAILY 09/13/20 10/17/23 History Pantoprazole Sodium 40 mg PO DAILY 09/13/20 10/17/23 History Prochlorperazine [Compazine] 10 mg PO Q12H PRN 09/13/20 10/17/23 History QUEtiapine [SEROquel] 800 mg PO HS 09/13/20 10/17/23 History Rosuvastatin Calcium 5 mg PO DAILY 09/13/20 10/17/23 History Sucralfate [Carafate] 1 gm PO ACHS 09/13/20 10/17/23 History clonazePAM 0.5 mg PO HS 09/13/20 10/17/23 History traZODone HCL 300 mg PO HS 09/13/20 10/17/23 History Acetaminophen with Codeine 1 tab PO Q12H PRN 10/17/23 10/17/23 History [Tylenol w/Codeine #2 Tablet] Perphenazine 8mg 8 mg PO BID 10/17/23 10/17/23 History Vitamin E (Dl,Tocopheryl Acet) 400 unit PO DAILY 10/17/23 10/17/23 History [Vitamin E (400 Iu = 180 mg)] Allergies Allergy/AdvReac Type Severity Reaction Status Date / Time No Known Allergies Allergy Verified 10/17/23 07:29 Physical Exam Vitals: Vital Signs Temp Pulse Resp BP Pulse Ox 10/17/23 12:00 154/86 10/17/23 10:08 98.1 F 92 18 146/78 96 10/17/23 07:02 90 18 146/95 94 L 10/17/23 04:13 70 18 102/64 93 L 10/17/23 00:27 98.5 F 92 18 144/76 96 10/16/23 21:15 99.7 F H 98 16 143/78 95 10/16/23 20:20 102 F H 104 H 20 117/96 91 L Intake and Output 10/16/23 10/17/23 10/17/23 22:59 06:59 14:59 Other: Weight 90.718 kg Results CBC & Chem 7: 10/17/23 06:45 10/17/23 06:45 Labs: Abnormal Lab Results - Last 24 Hours (Table) 10/16/23 10/16/23 10/16/23 Range/Units 21:00 21:00 21:20 MCHC (31.0-37.0) g/dL Plt Count 149 L (150-450) k/uL Lymphocytes # 0.3 L (1.0-4.8) k/uL Chloride (98-107) mmol/L BUN 19 H (7-17) mg/dL Creatinine 1.11 H (0.52-1.04) mg/dL Glucose 112 H (74-99) mg/dL Magnesium 1.4 L (1.6-2.3) mg/dL Total Protein (6.3-8.2) g/dL Albumin (3.5-5.0) g/dL Urine Protein Trace H (Negative) 10/17/23 10/17/23 Range/Units 06:45 06:45 MCHC 30.7 L (31.0-37.0) g/dL Plt Count 141 L (150-450) k/uL Lymphocytes # 0.7 L (1.0-4.8) k/uL Chloride 109 H (98-107) mmol/L BUN (7-17) mg/dL Creatinine 1.05 H (0.52-1.04) mg/dL Glucose (74-99) mg/dL Magnesium (1.6-2.3) mg/dL Total Protein 5.8 L (6.3-8.2) g/dL Albumin 3.4 L (3.5-5.0) g/dL Urine Protein (Negative) Assessment and Plan Time with Patient: Greater than 30
--- NOTE | 2023-10-17 15:24 | CT ---
EXAMINATION TYPE: CT brain wo con DATE OF EXAM: 10/17/2023 COMPARISON: 09/18/2010 HISTORY: AMS, weakness. CT DLP: 1210.4 mGycm Automated exposure control for dose reduction was used. FINDINGS: The ventricles, basal cisterns and sulci over convexities are within normal limits for the patient's age and there is no mass effect or shift of midline structures. No abnormal density is seen throughout the brain parenchyma. There is no acute intra or extra-axial h emorrhage. The posterior fossa including the brainstem, fourth ventricle and cerebellopontine angles are grossly normal. The intraorbital contents are normal and symmetric. Paranasal sinuses and mastoid air cells are well aerated. The calvarium is intact. IMPRESSION: 1. Mild age-appropriate atrophy. 2. No acute bleed or mass effect. IMPRESSION:
[2023-10-17] MEDS: ACETAMINOPHEN TAB 325 MG TAB PO PRN (18:33)
[2023-10-17] MEDS: MELATONIN 3 MG TABLET PO SCH (20:08)
[2023-10-17] MEDS: QUEtiapine 50 MG TAB PO SCH (20:08)
[2023-10-17] MEDS: HEPARIN SODIUM,PORCINE 5,000 UNIT/ML 1 ML VIAL SQ SCH (20:08)
[2023-10-17] MEDS: NYSTATIN 100,000 UNIT/GM POWD 15 GM TOPICAL SCH (20:08)
[2023-10-17] MEDS: traZODone HCL 100 MG TAB PO SCH (20:09)
[2023-10-17] MEDS ORDERED: clonazePAM 0.5 MG TAB PO SCH (21:00)
[2023-10-17] MEDS ORDERED: QUEtiapine 400 MG TAB PO SCH (21:00)
[2023-10-17] MEDS: MELATONIN 5 MG TABLET PO PRN (21:35)
[2023-10-18 09:02] LABS: Chol/HDL Ratio 2.29 Ratio; LDL Cholesterol,Calculated 55.9 mg/dL (0.0-131.0)
[2023-10-18] MEDS: IOPAMIDOL CONTRAST (ORAL USE) VIAL PO PRN (14:57)
--- NOTE | 2023-10-18 16:01 | P.PN ---
Subjective Progress Note Date: 10/18/23 This is a pleasant 68-year-old female with medical history significant for dyslipidemia, hypothyroidism, arthritis, insomnia, significant mental health history which is unknown at this time. Patient was petitioned by her long-term live-in boyfriend due to concerns for altered mentation and inability to am bulate and care for herself. EMS came to the scene and patient was brought to the hospital for further evaluation. She was admitted for psychiatric consultation. Patient is evaluated she is currently alert x 3 her speech is somewhat slurred but she does have large dentures in her mouth which are fairly new. No focal neurological deficits appreciated. Fever of 102 on admission which prompted a viral panel which was negative for COVID-negative for RSV and negative for influenza and her urinalysis was not suggestive of a urinary tract infection. Chest x-ray is negative for acute cardiopulmonary findings. she is currently denying any cough denies shortness of breath denies nausea vomiting diarrhea she is not having abdominal pain and she denies any dysuria urgency or frequency. Most of the medical history is taken from the patient's sister at the bedside who states that her boyfriend is her main primary caregiver. Sister states that the patient is somewhat estranged from her mother and the rest of the family and was following up with [facility] in the past however she is currently not receiving care there. Dr. Canales is her PCP and manages her medications. Per the sister the patients cat has recently and the patient has been grieving the cat and having a hard time. Per the petition patient has not been taking her medications, although patient denies this. She is maintained on multiple psychiatric medications. Patient denies any alcohol use, illicit substance use and is nonsmoker. 10/18/2023 Patient evaluated today on the medical floor in follow up. Mentation has improved. Complaints of not being able to sleep last night and discussed with psychiatry. Clonazepam will be resumed and patient will be monitored. Pt did have fever overnight T Max of 101.3 So far the work up consists of urinalysis which is nondiagnostic, normal chest xray. White blood cell count normal. Viral panel negative, procalcitonin did come back elevated at 1.0 and patient was started on IV ceftriaxone empirically. ID was consulted. Blood cultures remain negative but pending final cultures. Will be monitored overnight. REVIEW OF SYSTEMS: CONSTITUTIONAL: No fever, no malaise, no fatigue. HEENT: No recent visual problems or hearing problems. Denied any sore throat. CARDIOVASCULAR: No chest pain, orthopnea, PND, no palpitations, no syncope. PULMONARY: No shortness of breath, no cough, no hemoptysis. GASTROINTESTINAL: No diarrhea, no nausea, no vomiting, no abdominal pain. NEUROLOGICAL: No headaches, no weakness, no numbness. The rest of the 14-point review of systems is negative. PHYSICAL EXAMINATION: GENERAL: The patient is alert and oriented x3, not in any acute distress. Well developed, well nourished. HEENT: Pupils are round and equally reacting to light. EOMI. No scleral icterus. No conjunctival pallor. Normocephalic, atraumatic. No pharyngeal erythema. No thyromegaly. CARDIOVASCULAR: S1 and S2 present. No murmurs, rubs, or gallops. PULMONARY: Chest is clear to auscultation, no wheezing or crackles. ABDOMEN: Soft, nontender, nondistended, normoactive bowel sounds. No palpable organomegaly. MUSCULOSKELETAL: No joint swelling or deformity. EXTREMITIES: No cyanosis, clubbing, or pedal edema. NEUROLOGICAL: Gross neurological examination did not reveal any focal deficits. SKIN: No rashes. Assessment and Plan -Altered mental status secondary to acute toxic encephalopathy from medication affect, would recommend to cut back on medications and clonazepam, flexeril have been discontinued with decrease in doses of seroquel and gabapentin. Psychiatry has been consulted. Brain CT with no acute findings. Patient has no focal neurological deficits. -Hx of dyslipidemia continued on statin therapy -Hx of hypothyrodism continues on levothyroxine will check TSH level -Fever x 1 of unknown origin, no GI symptom, white blood cell count normal. Viral panel negative. Chest xray and urinalysis nondiagnostic. Check a procalc itonin level. -Generalized weakness and medical debility with underlying history of arthritis. Patient reports difficulty with ambulation she feels mostly due to her arthritis and pain. Physical therapy will be consulted -Hx of osteoarthritis continued on mobic daily and conservative pain management. Avoid narcotics. -CKD stage III per records from Dr morales office. Baseline creatinine appears around 1.3. -Intertrigo of the right groin nystatin power has been ordered -Insomnia maintained on trazadone and seroquel HS. Clonazepam has been resumed. -Mental health history; depression used to follow up at [facility] and would recommend patient to follow up again on discharge. GI prophylaxis DVT prophylaxis Full Code The impression and plan of care has been dictated by Nicole Gray, Nurse Prac titioner as directed. Dr. Gianluca MD I have performed a history and physical examination and medical decision making of this patient, discussed the same with the dictator, and agree with the dictators assessment and plan as written, documented as a scribe. Based on total visit time, I have performed more than 50% of this visit. Objective - Vital Signs Vital signs: Vital Signs Temp 98.6 F 10/18/23 15:38 Pulse 88 10/18/23 15:38 Resp 16 10/18/23 15:38 BP 136/82 10/18/23 15:38 Pulse Ox 98 10/18/23 15:38 FiO2 Intake & Output 10/17/23 10/18/23 10/18/23 18:59 06:59 18:59 Intake Total 590 Balance 590 Weight 90.718 kg Intake: Oral 590 Other: Voiding Method Toilet # Voids 1 3 1 - Labs CBC & Chem 7: 10/17/23 06:45 10/17/23 06:45 Labs: Abnormal Lab Results - Last 24 Hours (Table) 10/17/23 10/18/23 Range/Units 06:45 06:06 HDL Cholesterol 61.50 H (40.00-60.00) mg/dL Procalcitonin 1.01 H (0.02-0.09) ng/mL Microbiology - Last 24 Hours (Table) 10/16/23 21:00 Blood Culture - Preliminary Blood 10/16/23 20:45 Blood Culture - Preliminary Blood Assessment and Plan Time with Patient: Less than 30
--- NOTE | 2023-10-18 17:43 | CT ---
EXAMINATION TYPE: CT abdomen pelvis w con DATE OF EXAM: 10/18/2023 COMPARISON: None HISTORY: Fever, abdominal pain. CT DLP: 1966 mGycm CONTRAST: CT scan of the abdomen and pelvis is performed with Oral Contrast and with IV Contrast, patient injec saravanan with 100 ml mL of Isovue 300. FINDINGS: LUNG BASES-: No visible nodule. No infiltrate. Basilar parenchymal scarring. LIVER/GB: The gallbladder is surgically absent. Mild hepatic enlargement suggested. No space occupyin g hepatic lesion. Biliary tree is of normal caliber. PANCREAS: No inflammation. No distinct mass. SPLEEN: No splenic enlargement. No lesion seen. ADRENALS: No nodule. No thickening. KIDNEYS/BLADDER: No hydronephrosis. No nephrolithiasis. No distinct renal mass. Urinary bladder g rossly unremarkable. BOWEL: Normal appendix. Normal bowel caliber. No inflammation. GENITAL ORGANS: No gross abnormality. LYMPH NODES: No greater than 1cm abdominal or pelvic lymph nodes are appreciated. AORTA: No significant abnormality. OSSEOUS STRUCTURES: No significant abnormality is seen. OTHER: No significant additional abnormality is seen. IMPRESSION: 1. No evidence for acute inflammatory process or abscess. 2. Mild hepatomegaly.
[2023-10-18] MEDS: clonazePAM 0.5 MG TAB PO SCH (20:59)
[2023-10-18] MEDS: QUEtiapine 100 MG TAB PO SCH (21:00)
--- NOTE | 2023-10-18 22:05 | P.CONS ---
History of Present Illness - Reason for Consult Consult date: 10/18/23 Fever, abdominal pain Requesting physician: Rosario Sellers - Chief Complaint Fever and mental status changes x 1 day - History of Present Illness Patient is a 68-year-old female past medical history significant for reflux hyperlipidemia osteoarthritis hypothyroidism presenting to the hospital for evaluation of mental status changes apparently the patient was noticed to be confused by the boyfriend who called EMS patient was not sure the circumstances of her coming to the hospital and did not recall having any fever at home however the patient did have a fever of 102 F's on presentation to the hospital and did have another fever last night of 101.3 F patient has some tachycardia but not hypotension or hypoxic, patient did have a white count of 7.7 creatinine was mildly elevated liver enzymes are normal did have elevated procalcitonin urine has been negative, influenza RSV COVID testing negative, chest x-ray was negative for acute infiltrate patient has been treated with the [facility] infectious disease was consulted today for further management of antibiotic therapy patient currently denies having any headache or URI symptoms no chest pain shortness of breath or cough denies any nausea vomiting did have some abdominal discomfort and also complained of some constipation and no urinary symptoms Review of Systems Positive point and negatives has been mentioned in the HPI, complete review of systems was performed and all other systems are negative Past Medical History Past Medical History: GERD/Reflux, Hyperlipidemia, Osteoarthritis (OA), Thyroid Disorder Additional Past Medical History / Comment(s): neuropathy, chronic pain in lower back, DDD, left radius/ulnar fracture from fall, insomnia, stage 3 chronic kidney disease History of Any Multi-Drug Resistant Organisms: None Reported Past Surgical History: Cholecystectomy, Heart Catheterization, Tonsillectomy Additional Past Surgical History / Comment(s): negative heart cath 2020 Additional Past Anesthesia/Blood Transfusion Reaction / Comm: na Past Psychological History: Anxiety, Depression Smoking Status: Never smoker Past Alcohol Use History: None Reported Past Drug Use History: None Reported - Past Family History Mother Family Medical History: COPD Father Additional Family Medical History / Comment(s): CAD, - unknown cause to patient Medications and Allergies Home Medications Medication Instructions Recorded Confirmed Type Gabapentin [Neurontin] 400 mg PO TID 09/13/20 10/17/23 History Levothyroxine Sodium [Synthroid] 88 mcg PO DAILY 09/13/20 10/17/23 History Pantoprazole Sodium 40 mg PO DAILY 09/13/20 10/17/23 History Prochlorperazine [Compazine] 10 mg PO Q12H PRN 09/13/20 10/17/23 History Rosuvastatin Calcium 5 mg PO DAILY 09/13/20 10/17/23 History Sucralfate [Carafate] 1 gm PO ACHS 09/13/20 10/17/23 History clonazePAM 0.5 mg PO HS 09/13/20 10/17/23 History traZODone HCL 300 mg PO HS 09/13/20 10/17/23 History Acetaminophen with Codeine 1 tab PO Q12H PRN 10/17/23 10/17/23 History [Tylenol w/Codeine #2 Tablet] Perphenazine 8mg 8 mg PO BID 10/17/23 10/17/23 History Vitamin E (Dl,Tocopheryl Acet) 400 unit PO DAILY 10/17/23 10/17/23 History [Vitamin E (400 Iu = 180 mg)] Aspirin 81 mg PO DAILY #30 tab 10/19/23 Rx Nystatin 100,000 Unit/gm Powd 1 applic TOPICAL BID #1 each 10/19/23 Rx [Mycostatin Powder] QUEtiapine [SEROquel] 100 mg PO HS #30 tab 10/19/23 Rx cefUROXime axetiL [Ceftin] 500 mg PO BID 7 Days #14 tab 10/19/23 Rx Allergies Allergy/AdvReac Type Severity Reaction Status Date / Time No Known Allergies Allergy Verified 10/17/23 07:29 Physical Exam Vitals: Vital Signs Temp Pulse Resp BP Pulse Ox 10/18/23 12:40 98.1 F 90 18 135/83 97 10/18/23 07:29 18 10/18/23 07:11 98.8 F 85 17 142/82 93 L 10/18/23 02:00 98.9 F 82 16 126/80 95 10/17/23 19:21 101 H 16 10/17/23 19:17 101.3 F H 101 H 16 120/71 95 10/17/23 15:45 100.9 F H 99 16 138/88 99 10/17/23 15:06 99.2 F 98 16 140/84 96 Intake and Output 10/17/23 10/18/23 10/18/23 22:59 06:59 14:59 Intake Total 590 Balance 590 Intake: Oral 590 Other: Voiding Method Toilet # Voids 1 3 1 Weight 90.718 kg GENERAL DESCRIPTION: Elderly female lying in bed, no distress. No tachypnea or accessory muscle of respiration use. HEENT: Shows Pallor , no scleral icterus. Oral mucous membrane is dry. No pharyngeal erythema or thrush NECK: Trachea central, no thyromegaly. LUNGS: Unlabored breathing. Clear to auscultation anteriorly. No wheeze or crackle. HEART: S1, S2, regular rate and rhythm. No loud murmur ABDOMEN: Soft, no tenderness , EXTREMITIES: No edema of feet. SKIN: No rash, no masses palpable. NEUROLOGICAL: The patient is awake, alert, oriented x3, mood and affect normal. Results CBC & Chem 7: 10/17/23 06:45 10/17/23 06:45 Labs: Abnormal Lab Results - Last 24 Hours (Table) 10/17/23 10/18/23 Range/Units 06:45 06:06 HDL Cholesterol 61.50 H (40.00-60.00) mg/dL Procalcitonin 1.01 H (0.02-0.09) ng/mL Microbiology - Last 24 Hours (Table) 10/16/23 21:00 Blood Culture - Preliminary Blood 10/16/23 20:45 Blood Culture - Preliminary Blood Assessment and Plan (1) Altered mental status Current Visit: Yes Status: Acute Code(s): R41.82 - ALTERED MENTAL STATUS, UNSPECIFIED SNOMED Code(s): 088192475 (2) Fever Current Visit: Yes Status: Acute Code(s): R50.9 - FEVER, UNSPECIFIED SNOMED Code(s): 697982444 Plan: 1patient presented to hospital with mental status changes also noticed to be febrile initial workup has been negative with a negative UA chest x-ray negative no evidence of any joint swelling or cellulitis has been noticed patient complaining of some constipation and some abdominal pain questionably diverticulitis/abdominal source 2-we will obtain CT of abdominal pelvis with contrast 3-for now continue with Rocephin 2 g daily while waiting for the culture and will continue to finalize We will follow on clinical condition and cultures to further adjust medication if needed Thank you for this consultation we will follow the patient along with you Dictation was produced using [employer] dictation software. please excuse any grammatical, word or spelling errors. Time with Patient: Greater than 30
[2023-10-19 08:13] VITALS: PULSE 87
[2023-10-19 09:05] LABS: Appearance,Urine Clear (Clear); Bilirubin,Urine Negative (Negative); Blood,Urine Negative (Negative); Color,Urine Yellow; Glucose,Urine (UA) Negative (Negative); Ketones,Urine Negative (Negative); Leukocyte Esterase,Urine Negative (Negative); Nitrite,Urine Negative (Negative); Protein,Urine Trace (Negative); Urobilinogen,Urine <2.0 mg/dL (<2.0)
[2023-10-19 09:12] LABS: Specific Gravity,Urine >1.050 (1.001-1.035)
[2023-10-19 12:48] VITALS: BP 126/84; RESP 18; TEMP 98.3
--- NOTE | 2023-10-19 15:16 | P.PN ---
Subjective Progress Note Date: 10/19/23 Principal diagnosis: Reason for follow-up is fever Patient is a 68-year-old female past medical history significant for reflux hyperlipidemia osteoarthritis hypothyroidism presenting to the hospital for evaluation of mental status changes patient noticed to be febrile initial workup including a UA chest x-ray was negative did have a CT abdominal pelvis and did not show any acute abnormality On today's evaluation that is 10/19/2023, the patient did have resolution of her fever and is afebrile today, the patient is on room air and breathing comfortably, the Pt denies having any chest pain or cough, the patient denies having any abdominal pain no vomiting or any diarrhea, feeling better wants to go home No lab draw today blood cultures so far negative Objective - Vital Signs Vital signs: Vital Signs Temp 98.3 F 10/19/23 12:20 Pulse 87 10/19/23 12:20 Resp 18 10/19/23 12:20 BP 126/84 10/19/23 12:20 Pulse Ox 95 10/19/23 12:20 FiO2 Intake & Output 10/18/23 10/19/23 10/19/23 18:59 06:59 18:59 Intake Total 590 Balance 590 Intake: Oral 590 Other: Voiding Method Toilet Toilet Toilet # Voids 2 2 # Bowel Movements 1 - Exam GENERAL DESCRIPTION: Elderly female up in bed in no distress RESPIRATORY SYSTEM: Unlabored breathing , decreased breath sounds at bases HEART: S1 S2 regular rate and rhythm , ABDOMEN: Soft , no tenderness EXTREMITIES: No edema feet - Labs CBC & Chem 7: 10/17/23 06:45 10/17/23 06:45 Labs: Abnormal Lab Results - Last 24 Hours (Table) 10/18/23 Range/Units 07:38 Ur Specific [place] >1.050 H (1.001-1.035) Urine Protein Trace H (Negative) Microbiology - Last 24 Hours (Table) 10/16/23 21:00 Blood Culture - Preliminary Blood 10/16/23 20:45 Blood Culture - Preliminary Blood Assessment and Plan (1) Fever Current Visit: Yes Status: Acute Code(s): R50.9 - FEVER, UNSPECIFIED SNOMED Code(s): 348456357 Plan: 1patient presented to hospital with mental status changes also noticed to be febrile initial workup has been negative with a negative UA chest x-ray negative no evidence of any joint swelling or cellulitis has been noticed patient complaining of some constipation and some abdominal pain questionably diverticulitis/abdominal source 2- CT of abdominal pelvis with contrast did not show any acute abnormality 3-culture has been negative keeping in mind resolution of the fever with the Rocephin we will consider a 7-day course of Ceftin on discharge discussed with CARRIER BLOWER for admitting team Dictation was produced using [employer] dictation software. please excuse any grammatical, word or spelling errors. Time with Patient: Less than 30
--- NOTE | 2023-10-22 21:18 | P.DS ---
Providers Date of admission: 10/16/23 22:36 Attending physician: Paradise Shea Consults: 10/16/23 22:36 Consult Physician Routine Consulting Provider: Leonard Renteria Consult Reason/Comments: petition Do you want consulting provider notified?: Yes 10/18/23 13:30 Consult Physician Urgent Consulting Provider: Regi Albert Consult Reason/Comments: fever, abd pain Do you want consulting provider notified?: Yes Primary care physician: Sanjay Canales [facility] Course: Final Diagnosis -Altered mental status secondary to acute toxic encephalopathy from medication affect/polypharmacy -Hx of dyslipidemia continued on statin therapy -Hx of hypothyrodism continues on levothyroxine -Fever x 1 of unknown origin, no GI symptom, white blood cell count normal. Viral panel negative. Chest xray, UA and abdominal pelvis CT nondiagnostic. -Generalized weakness and medical debility with underlying history of arthritis. Patient reports difficulty with ambulation she feels mostly due to her arthritis and pain. -Hx of osteoarthritis continued on mobic daily and conservative pain management. Avoid narcotics. -CKD stage III per records from Dr morales office. Baseline creatinine appears around 1.3. -Intertrigo of the right groin nystatin power has been ordered -Insomnia maintained on trazadone and seroquel HS. Clonazepam has been resumed. -Mental health history; depression used to follow up at [facility] and would recommend patient to follow up again on discharge. Discharge Disposition Medically patient is stable for discharge. Recommending short course of oral ceftin on discharge. Psychiatric mediations have been adjusted. Patient is alert and oriented x3. Recommending close follow up with [facility] on discharge. Follow up with PCP Dr. Canales in 1 to 2 days on discharge. Hospital Course This is a pleasant 68-year-old female with medical history significant for dyslipidemia, hypothyroidism, arthritis, insomnia, significant mental health history which is unknown at this time. Patient was petitioned by her long-term live-in boyfriend due to concerns for altered mentation and inability to ambulate and care for herself. EMS came to the scene and patient was brought to the hospital for further evaluation. She was admitted for psychiatric consultation. Patient is evaluated she is currently alert x 3 her speech is somewhat slurred but she does have large dentures in her mouth which are fairly new. No focal neurological deficits appreciated. Fever of 102 on admission which prompted a viral panel which was negative for COVID-negative for RSV and negative for influenza and her urinalysis was not suggestive of a urinary tract infection. Chest x-ray is negative for acute cardiopulmonary findings. she is currently denying any cough denies shortness of breath denies nausea vomiting diarrhea she is not having abdominal pain and she denies any dysuria urgency or frequency. Most of the medical history is taken from the patient's sister at the bedside who states that her boyfriend is her main primary caregiver. Sister states that the patient is somewhat estranged from her mother and the rest of the family and was following up with [facility] in the past however she is currently not receiving care there. Dr. Canales is her PCP and manages her medications. Per the sister the patients cat has recently and the patient has been grieving the cat and having a hard time. Per the petition patient has not been taking her medications, although patient denies this. She is maintained on multiple psychiatric medications. Patient denies any alcohol use, illicit substance use and is nonsmoker. Patient was admitted to the hospital with psychiatry consultation. Medications were adjusted including decrease in seroquel dosing and recommending to avoid anticholenergics. Patient does take clonazepam at HS states otherwise she is unable to sleep. Patient remains alert and oriented after receiving this medication. Did have an abdominal pelvis CT with no significant findings to account for the fever. Patient did improve with ceftriaxone. Procalcitonin was mildly elevated at 1. ID recommending short course of oral ceftin on discharge. Patient has been afebrile for the last 48 hours. White blood cell count within normal limits. Patient will be discharged home. Please see medication reconciliation for a list of current medications. Thank you for allowing us to participate in the care of this patient. The impression and plan of care has been dictated by Nicole Gray, Nurse Practitioner as directed. Dr. Gianluca MD I have performed a history and physical examination and medical decision making of this patient, discussed the same with the dictator, and agree with the dictators assessment and plan as written, documented as a scribe. Based on total visit time, I have performed more than 50% of this visit. Patient Condition at Discharge: Fair Plan - Discharge Summary Discharge Rx Participant: Yes New Discharge Prescriptions: New Nystatin 100,000 Unit/gm Powd [Mycostatin Powder] 1 applic TOPICAL BID #1 each QUEtiapine [SEROquel] 100 mg PO HS #30 tab Aspirin 81 mg PO DAILY #30 tab cefUROXime axetiL [Ceftin] 500 mg PO BID 7 Days #14 tab Continue Gabapentin [Neurontin] 400 mg PO TID traZODone HCL 300 mg PO HS Rosuvastatin Calcium 5 mg PO DAILY clonazePAM 0.5 mg PO HS Prochlorperazine [Compazine] 10 mg PO Q12H PRN PRN Reason: Nausea Pantoprazole Sodium 40 mg PO DAILY Levothyroxine Sodium [Synthroid] 88 mcg PO DAILY Sucralfate [Carafate] 1 gm PO ACHS Acetaminophen with Codeine [Tylenol w/Codeine #2 Tablet] 1 tab PO Q12H PRN PRN Reason: Pain Perphenazine 8mg 8 mg PO BID Vitamin E (Dl,Tocopheryl Acet) [Vitamin E (400 Iu = 180 mg)] 400 unit PO DAILY Discontinued QUEtiapine [SEROquel] 800 mg PO HS Cyclobenzaprine [Flexeril] 10 mg PO HS Discharge Medication List Gabapentin [Neurontin] 400 mg PO TID 09/13/20 [History] Levothyroxine Sodium [Synthroid] 88 mcg PO DAILY 09/13/20 [History] Pantoprazole Sodium 40 mg PO DAILY 09/13/20 [History] Prochlorperazine [Compazine] 10 mg PO Q12H PRN 09/13/20 [History] Rosuvastatin Calcium 5 mg PO DAILY 09/13/20 [History] Sucralfate [Carafate] 1 gm PO ACHS 09/13/20 [History] clonazePAM 0.5 mg PO HS 09/13/20 [History] traZODone HCL 300 mg PO HS 09/13/20 [History] Acetaminophen with Codeine [Tylenol w/Codeine #2 Tablet] 1 tab PO Q12H PRN 10/17/23 [History] Perphenazine 8mg 8 mg PO BID 10/17/23 [History] Vitamin E (Dl,Tocopheryl Acet) [Vitamin E (400 Iu = 180 mg)] 400 unit PO DAILY 10/17/23 [History] Aspirin 81 mg PO DAILY #30 tab 10/19/23 [Rx] Nystatin 100,000 Unit/gm Powd [Mycostatin Powder] 1 applic TOPICAL BID #1 each 10/19/23 [Rx] QUEtiapine [SEROquel] 100 mg PO HS #30 tab 10/19/23 [Rx] cefUROXime axetiL [Ceftin] 500 mg PO BID 7 Days #14 tab 10/19/23 [Rx] Follow up Appointment(s)/Referral(s): Sanjay Canales MD [Primary Care Provider] - 1-2 days [facility] [NON-STAFF] - 1 Week Patient Instructions/Handouts: Fever in Adults (ED) Activity/Diet/Wound Care/Special Instructions: Continue on decreased dose of seroquel to 100 mg HS. Follow up with [facility] Diet as tolerated Activity Limited until seen by CALL ON SATURDAY TO SCHEDULE 'S APPOINMENTS (office closed on weekends) Discharge Disposition: HOME SELF-CARE
== END 2023-10-19 18:39 | disposition home or self-care (01) ==
LOC: EC 20:00 → INTOOBSV 22:36 → 5NMEDONC 22:36 → UNDODISIN 10-19 18:39
PROVIDERS: ADMIT Hospitalist; ATTEND Hospitalist
DX: G92.8 Other toxic encephalopathy (principal); T42.4X5A Adverse effect of benzodiazepines, initial encounter; T48.1X5A Adverse effect of skeletal muscle relaxants [neuromuscular blocking agents], initial encounter; T42.6X5A Adverse effect of other antiepileptic and sedative-hypnotic drugs, initial encounter; N18.30 Chronic kidney disease, stage 3 unspecified; E03.9 Hypothyroidism, unspecified; E78.5 Hyperlipidemia, unspecified; G47.00 Insomnia, unspecified; R50.9 Fever, unspecified; M19.90 Unspecified osteoarthritis, unspecified site; L30.4 Erythema intertrigo; H91.90 Unspecified hearing loss, unspecified ear; E66.3 Overweight; Z68.30 Body mass index [BMI] 30.0-30.9, adult; F32.A Depression, unspecified; K21.9 Gastro-esophageal reflux disease without esophagitis; K59.00 Constipation, unspecified; Z79.890 Hormone replacement therapy; Z79.82 Long term (current) use of aspirin; Z79.899 Other long term (current) drug therapy; Z79.1 Long term (current) use of non-steroidal anti-inflammatories (NSAID); Z11.52 Encounter for screening for COVID-19; Z11.59 Encounter for screening for other viral diseases; Z62.890 Parent-child estrangement NEC; Z91.148 Patient's other noncompliance with medication regimen for other reason
CPT/HCPCS: 96366 ×2; 96372 ×2; 96361 ×2; 96365; 96375; 99285; 36415; 97161; 97165; 80061; 80053 ×2; 84443; 83605; 83735 ×2; 84100 ×2; 85025 ×2; 81003 ×2; 87040; 83036; 84145; 87636; 71045; 70450; 74177; G0378 ×4; Q0175 ×3; J2060; J1200; J1644 ×3; J0696 ×3; Q9967

== ENCOUNTER → 2024-10-05 | Outpatient (CLI) | payer MEDICARE, OTHER ==
--- NOTE | 2024-10-05 11:28 | MR ---
EXAMINATION TYPE: MR hip RT wo con DATE OF EXAM: 10/05/2024 10:57 AM CLINICAL INDICATION: Female, 69 years old with history of M25.551 RIGHT HIP PAIN; PHH, Right hip pain , limited movement x 5 years. COMPARISON: 12/30/2014 TECHNIQUE: Multiplanar multi-sequential magnetic resonance imaging of the hip without contrast. IV Contrast: mL none FINDINGS: Joint spaces and alignment: Normal Joint/bursal fluid: Normal Articular cartilage: Normal Acetabular labrum: Intact Muscles/Tendons: Intact The tendons of the gluteal, hamstring, iliopsoas, and adductors are normal in within normal limits without evidence for edema and are intact. Abductor tendon insertions: Intact Intrapelvic structures: Normal Neurovascular structures: Normal Osseous structures: Increase degeneration changes from the right femoral head maternal left foot subc hondral cystic change and subchondral bony edema. There is severe joint space loss with osteophyte fo rmation. There is minimal subchondral cystic change of the posterior medial left femoral head. There is no evidence of fracture or acute process. The sacroiliac joints and pubic symphysis are noted to be unremarkable. Soft tissues: Normal Other: The ovaries, uterus, and urinary bladder are unremarkable. No lymphadenopathy is visualized. A few scattered colonic diverticula present. IMPRESSION: Moderate to severe right hip osteoarthrosis with subchondral cystic change of the right femoral head with osteophytes and joint space narrowing. Findings have slightly progressed from 2015. [facility], , 10/05/2024 11:26 AM
== END | disposition home or self-care (01) ==
LOC: RADMRIMAIN 09:32
PROVIDERS: ATTEND Orthopaedic Surgery
DX: M16.11 Unilateral primary osteoarthritis, right hip (principal)

== ENCOUNTER → 2024-11-02 | Outpatient (CLI) | payer MEDICARE, OTHER | END | disposition home or self-care (01) | LOC: LABPAT 10:22 | PROVIDERS: ATTEND Orthopaedic Surgery | DX: Z01.812 Encounter for preprocedural laboratory examination (principal); Z22.322 Carrier or suspected carrier of Methicillin resistant Staphylococcus aureus; M16.11 Unilateral primary osteoarthritis, right hip | CPT/HCPCS: 86850; 86900; 86901; 87070 ==

== ENCOUNTER 2024-11-10 05:54 | Day surgery (SDC) | payer MEDICARE, OTHER ==
--- NOTE | 2024-11-09 09:07 | P.HPOR ---
History of Present Illness H&P Date: 11/09/24 Chief Complaint: Right hip pain Patient is a 69-year-old female who presents with progressive right hip pain for the past 5 years worsening over the past year. She notes anterior groin and thigh pain with weightbearing activities. She is having night symptoms. She is having a difficult time getting around. She does use a cane. Review of Systems Per HPI Past Medical History Past Medical History: No Reported History Additional Past Medical History / Comment(s): neuropathy, chronic pain in lower back, DDD, left radius/ulnar fracture from fall, insomnia, stage 3 chronic kidne y disease History of Any Multi-Drug Resistant Organisms: None Reported Past Surgical History: No Surgical Hx Reported Additional Past Surgical History / Comment(s): negative heart cath 2020 Additional Past Anesthesia/Blood Transfusion Reaction / Comment(s): na Past Psychological History: Unable to Obtain Smoking Status: Unknown if ever smoked Past Alcohol Use History: None Reported Past Drug Use History: None Reported - Past Family History Mother Family Medical History: COPD Father Additional Family Medical History / Comment(s): CAD, - unknown cause to patient Medications and Allergies Home Medications Medication Instructions Recorded Confirmed Type Gabapentin [Neurontin] 400 mg PO TID 09/13/20 10/17/23 History Levothyroxine Sodium [Synthroid] 88 mcg PO DAILY 09/13/20 10/17/23 History Pantoprazole Sodium 40 mg PO DAILY 09/13/20 10/17/23 History Prochlorperazine [Compazine] 10 mg PO Q12H PRN 09/13/20 10/17/23 History Rosuvastatin Calcium 5 mg PO DAILY 09/13/20 10/17/23 History Sucralfate [Carafate] 1 gm PO ACHS 09/13/20 10/17/23 History clonazePAM 0.5 mg PO HS 09/13/20 10/17/23 History traZODone HCL 300 mg PO HS 09/13/20 10/17/23 History Acetaminophen with Codeine 1 tab PO Q12H PRN 10/17/23 10/17/23 History [Tylenol w/Codeine #2 Tablet] Perphenazine 8mg 8 mg PO BID 10/17/23 10/17/23 History Vitamin E (Dl,Tocopheryl Acet) 400 unit PO DAILY 10/17/23 10/17/23 History [Vitamin E (400 Iu = 180 mg)] Aspirin 81 mg PO DAILY #30 tab 10/19/23 Rx Nystatin 100,000 Unit/gm Powd 1 applic TOPICAL BID #1 each 10/19/23 Rx [Mycostatin Powder] QUEtiapine [SEROquel] 100 mg PO HS #30 tab 10/19/23 Rx cefuroxime axetiL [Ceftin] 500 mg PO BID 7 Days #14 tab 10/19/23 Rx Allergies Allergy/AdvReac Type Severity Reaction Status Date / Time No Known Allergies Allergy Verified 10/17/23 07:29 Physical Examination - Hip right Gait: antalgic Tenderness with palpation: anterior Pain with motion: internal rotation and hip flexion ROM: flexion: 80 degrees ROM: internal rotation: 0 degrees (With pain) ROM: external rotation: 60 degrees Strength: extension: 5/5 Strength: flexion: 5/5 Strength: abduction: 5/5 Tests: impingement tests: positive Results The patient is a well-developed well-nourished female approximately 5 foot 8, 205 pounds of endomorphic habitus. HEENT exam is nonfocal, neck is supple. She has painful passive motion of the right hip. Straight leg raise is negative. She has a moderately antalgic gait pattern. Her distal neurovascular exam appears intact in the right lower extremity. - Diagnostic results Hip x-ray: image reviewed (X-rays of the right hip obtained the office show severe osteoarthrosis with [id number] changes along with subchondral sclerosis and cystic changes.) Assessment and Plan Assessment: Right hip severe osteoarthrosis Plan: I talked with patient at length regarding her condition along with treatment options. This point she is quite symptomatic having pain and mechanical symptoms related to her right hip osteoarthrosis despite conservative measures. After a thorough discussion she opts to proceed with surgery. We will plan to proceed with a right total hip arthroplasty utilizing an anterior approach. Risks and benefits were discussed at length in layman's terms. We will institute DVT prophylaxis postoperatively.
[~2024-11-10 05:54] MED LIST changes: +ACETAMINOPHEN TAB 500 MG TAB PO PRN; -ALPRAZolam 0.25 MG TAB PO PRN; -ALPRAZolam 0.5 MG TAB PO PRN; -NITROGLYCERIN SL TABS 0.4 MG TAB SUBLINGUAL PRN; -SODIUM CHLORIDE 0.9% 1,000 ML in EMPTY BAG 1 BAG IV ONE; +TRANEXAMIC 1,000 MG/100ML-NACL 1,000 MG in SALINE 1 100ML.BAG IVPB PRN
[2024-11-10] MEDS ORDERED: LIDOCAINE 1% (10MG/ML) FOR IV START INTRADERMA PRN (06:05)
[2024-11-10] MEDS: DEXAMETHASONE SOD PHOSPHATE 4 MG/ML 1 ML VIAL IV ONE (06:54)
[2024-11-10] MEDS: MELOXICAM 7.5 MG TAB PO PRN (06:54)
[2024-11-10] MEDS: ONDANSETRON 4 MG/2 ML VIAL IVP ONE (06:54)
[2024-11-10] MEDS: LACTATED RINGERS 1,000 ML IV SCH (06:54)
[2024-11-10] MEDS: fentaNYL (PF) 50 MCG/ML 2 ML AMP IVP PRN (07:05)
[2024-11-10] MEDS: MIDAZOLAM 2 MG/2 ML VIAL IV PRN (07:05)
[2024-11-10 07:09] LABS: Basophils # (A) 0.01 10*3/uL (0.00-0.10); Basophils % (A) 0.2 %; Eosinophils # (A) 0.13 10*3/uL (0.04-0.35); Eosinophils % (A) 2.9 %; HCT 42.3 % (37.2-46.3); HGB 14.1 g/dL (12.0-15.0); Lymphocytes # (A) 1.46 10*3/uL (0.90-5.00); Lymphocytes % (A) 32.8 %; MCH 29.9 pg (27.0-32.0); MCHC 33.3 g/dL (32.0-37.0); MCV 89.8 fL (80.0-97.0); Mean Platelet Volume 10.3 fL (9.5-12.2); Monocytes # (A) 0.47 10*3/uL (0.20-1.00); Monocytes % (A) 10.6 %; Neutrophils # (A) 2.37 10*3/uL (1.80-7.70); Neutrophils % (A) 53.3 %; Platelet Count 166 10*3/uL (140-440); RBC 4.71 10*6/uL (4.10-5.20); RDW 12.3 % (11.5-14.5); WBC 4.45 10*3/uL (4.50-10.00)
[2024-11-10 07:31] LABS: African American GFR (CKD) 59 (>60 ml/min/1.73 sqM); Anion Gap 8 mmol/L; Blood Urea Nitrogen 20 mg/dL (7-17); Calcium 9.7 mg/dL (8.4-10.2); Carbon Dioxide 26 mmol/L (22-30); Chloride 106 mmol/L (98-107); Non-African American GFR(CKD) 51 (>60 ml/min/1.73 sqM); Potassium 4.1 mmol/L (3.5-5.1); Sodium 140 mmol/L (137-145)
[2024-11-10] MEDS ORDERED: GLYCOPYRROLATE 0.2 MG/ML 2 ML VIAL ONE (07:37)
[2024-11-10] MEDS ORDERED: TRANEXAMIC 1,000 MG/100ML-NACL PREMIX BAG ONE (07:37)
[2024-11-10] MEDS ORDERED: NEOSTIGMINE 1 MG/ML 10 ML VIAL ONE (07:37)
[2024-11-10] MEDS ORDERED: ROPIVACAINE 5 MG/ML 30 ML VIAL ONE (07:37)
[2024-11-10] MEDS ORDERED: ROCURONIUM 10 MG/ML (5 ML VIAL) IV ONE (07:37)
[2024-11-10] MEDS ORDERED: PROPOFOL 10 MG/ML 20 ML VIAL IV ONE (07:37)
[2024-11-10] MEDS ORDERED: PHENYLEPHRINE-0.9% NACL SYG 1,000 MCG/10 ML SYRINGE ONE (07:37)
[2024-11-10] MEDS ORDERED: fentaNYL (PF) 50 MCG/ML 2 ML AMP ONE (07:37)
[2024-11-10] MEDS ORDERED: SUCCINYLCHOLINE CHLORIDE 200 MG/10 ML VIAL IV ONE (07:37)
[2024-11-10] MEDS ORDERED: DEXAMETHASONE SOD PHOSPHATE 4 MG/ML 1 ML VIAL ONE (07:37)
[2024-11-10] MEDS ORDERED: MIDAZOLAM 2 MG/2 ML VIAL ONE (07:37)
[2024-11-10] MEDS ORDERED: LIDOCAINE 1% INJ 10MG/ML (20 ML MDV) ONE (07:37)
[2024-11-10] MEDS: LACTATED RINGERS 1,000 ML IV ONE ×2 (07:40→09:35)
[2024-11-10] MEDS: ceFAZolin 2 GM in DEXTROSE 5% IN WATER 50 ML IVPB PRN (07:40)
[2024-11-10 07:48] LABS: Prothrombin Time 11.3 sec (10.0-12.5)
--- NOTE | 2024-11-10 07:50 | P.ANPRN ---
Procedure Note - Anesthesia - Nerve Block Performed Right Flavio Single Time Out Performed: Yes Date of Procedure: 11/10/24 Procedure Start Time: 07:04 Procedure Stop Time: 07:11 Location of Patient: PreOp Indication: Acute Post-Operative Pain, Requested by Surgeon Sedation Type: Sedate with meaningful contact maintained Preparation: Sterile Prep Position: Supine Needle Types: Pajunk Needle Gauge: 21 Ultrasound used to visualize needle placement: Yes Ultrasound used to observe medication spread: Yes Injectate: 0.5% Ropivacaine (see comment for volume) (30 mL +4 mg dexamethasone) Blood Aspirated: No Pain Paresthesia on Injection Noted: No Resistance on Injection: Normal Image Stored and Saved: Yes Events: Uneventful and Well Tolerated
[2024-11-10 07:52] LABS: Glucose 104 mg/dL (74-99)
[2024-11-10] MEDS: ceFAZolin 1,000 MG in SODIUM CHLORIDE 0.9% 1,000 ML IRRIGATION ONE (08:20)
[2024-11-10] MEDS ORDERED: HYDROcodone/APAP 5-325MG 1 EACH TAB PO PRN (09:24)
[2024-11-10] MEDS ORDERED: MAGNESIUM HYDROXIDE 2,400 MG/30 ML CUP PO PRN (09:24)
[2024-11-10] MEDS ORDERED: NALOXONE 0.4 MG/ML 1 ML VIAL IV PRN (09:24)
[2024-11-10] MEDS ORDERED: HYDROmorphone 0.5 MG/0.5 ML SYRINGE IVP PRN (09:24)
--- NOTE | 2024-11-10 09:45 | XR ---
EXAMINATION TYPE: XR Hip Limited RT, FL guidance operating room DATE OF EXAM: 11/10/2024 9:22 AM COMPARISON: None CLINICAL INDICATION: Female, 69 years old with history of Rtb Hip-Ant; PHH, pain FLUOROSCOPY right anterior hip replacement fluoroscopy. 3 images are provided. Total fluoroscopy time 17.9 seconds. Total dose 1.2 Gycm2 [facility], Workstation: [facility], 11/10/2024 9:43 AM
--- NOTE | 2024-11-10 09:47 | P.OP ---
Date of Procedure: 11/10/24 Preoperative Diagnosis: Right hip severe osteoarthrosis Postoperative Diagnosis: Same Procedure(s) Performed: Right total hip arthroplastypress-fitanterior approach Implants: DePuy Corail size 13-125 degree standard collared press-fit femoral stem, 36+5 ceramic femoral head, 54 mm Stratton acetabular shell with neutral polyethylene liner. Anesthesia: RENEE Surgeon: Joaquin Gonsalez Trimmer Sorter #1: Tawanda Castro Estimated Blood Loss (ml): 200 Pathology: none sent Condition: stable Disposition: PACU Indications for Procedure: The patient is a 69-year-old female who presents with progressive right hip pain secondary to osteoarthrosis despite conservative measures. I discussion of the risks and benefits of operative intervention versus continued conservative measures was made with the patient. She opted to proceed with surgery. Operative risk to include infection, neurovascular injury, development of blood clots, fracture, leg length discrepancy, possible instability, possible component loosening/failure and need for subsequent procedures was discussed. Informed consent was obtained. Operative Findings: As below Description of Procedure: The patient was brought to the operating room, and after induction of spinal anesthesia was placed supine on the Rhiannon table. Positioning was checked with fluoroscopy. The right hip was then prepped and draped in a normal fashion. A 12 cm incision was then made starting 2 fingerbreadths distal and 3 finger breaths posterior to the ASIS in line with the proximal femur. The skin was incised sharply. Subcutaneous tissues were divided sharply. Electrocautery was used for hemostasis. The fascia was split in line with skin incision. The interval between the sartorius and tensor fascia vanesa was then bluntly developed. The posterior fascia was opened with electrocautery. The lateral circumflex vessels were identified and cauterized prior to sectioning. A retractor was placed along the superior femoral neck as well as the anterior acetabular rim. A wide capsulotomy was performed. The neck cut was then made at a 45 angle to the shaft approximately 1 1/2 cm above the level of the lesser trochanter. The head was extracted. Attention was then paid towards preparing the acetabulum. Anterior and posterior retractors were placed. The remaining capsular labral tissue sharply debrided clearly defining the a cetabular margins. I began reaming with a 49 mm reamer taking care to initially medialize then reaming at 45 of abduction and 20 of anteversion. Sequential reaming is performed up to 53 mm. A trial 54 mm acetabular shell was inserted in the same orientation and was fully seated. There was good rim fit and stability. Positioning was checked with fluoroscopy. The final 54 mm acetabular shell was inserted again at 45 of abduction and 20 of anteversion. This was fully seated. There was good rim fit and stability. Again fluoroscopy was used to check the adequacy of placement. A neutral polyethylene liner was gently impacted. Care was taken to avoid any soft tissue interposition. Pulsatile lavage was utilized. Attention was then paid towards preparing the proximal femur. The central region was cleared of soft tissue. A canal finder was used to find the femoral canal. Sequential broaching was performed up to size 13 taking care to lateralize proximally. A calcar mill was used to fashion the medial calcar. There was good rotational stability. A 125 degree standard neck along with a 36 mm +5 head was placed. The hip was gently reduced. Fluoroscopy was used to check the adequacy of positioning along with leg lengths. I felt both were good. The hip was gently dislocated. The trial components were removed. The final size 13-125 degree standard collared fernando dard press-fit femoral stem was inserted parallel to the posterior cortex. This was fully seated and there was good rotational stability. A 36 mm +5 ceramic femoral head was placed. This was gently impacted. The hip was then gently reduced. Final fluoroscopic view showed adequate placement implant along with tenriism of leg length. Stability was checked with 80 of external rotation and 60 of extension of the right hip. The wound was irrigated with sterile lavage. The fascia was closed with running 0 Vicryl suture. There was minimal drainage therefore a deep drain was not placed. The second dose of IV TXA was given. The subcutaneous tissues were reapproximated interrupted 2-0 Vicryl sutures. The skin was reapproximated with 3-0 subcuticular strata fix suture. Skin tape and adhesive was applied. A sterile dressing was applied. The patient was then awoken from sedation and transferred to recovery room in good condition. Blood loss was estimated at 200 mL. No complications were incurred. Sponge and needle counts were correct at the end of the case. Tawanda HOOKS assisted during the major components is case to include exposure, bone resection, implantation, and closure.
[2024-11-10] MEDS: HYDROmorphone 0.5 MG/0.5 ML SYRINGE IVP PRN ×2 (10:19→12:49)
--- NOTE | 2024-11-10 10:24 | XR ---
EXAMINATION TYPE: XR Hip Limited one view RT DATE OF EXAM: 11/10/2024 10:15 AM COMPARISON: None CLINICAL INDICATION: Female, 69 years old with history of Status post hip surgery, assess surgical al ignment; PHH, pain FINDINGS: Image shows placement of right total hip arthroplasty. Acetabular cup and femoral short martina m components of the prosthesis appear well seated without periprosthetic fracture. Alignment grossly anatomic. Scattered soft tissue air related to recent operation. IMPRESSION: Uncomplicated postoperative appearance right total hip arthroplasty. [facility], , 11/10/2024 10:22 AM
[2024-11-10] MEDS: IV FLUID CONTINUATION 1,000 ML IV ONE (10:44)
--- NOTE | 2024-11-10 13:50 | P.CONS ---
History of Present Illness - Reason for Consult Consult date: 11/10/24 medical management Requesting physician: Joaquin Gonsalez - History of Present Illness Ofelia Richardson is a 69-year-old female patient presented for an elective right hip arthroplasty with Dr. Turpin. Patient has past medical history of GERD, hearing disorder, hyperlipidemia, osteoarthritis, hard of hearing, depression, and insomnia, chronic kidney disease and osteoarthritis. Lab work showing white bl ood cell 4.45 hemoglobin 14.1, creatinine 1.11 and bun 20. Current vital signs temp 96.8, heart rate 82, respiratory rate 15, blood pressure 132/61 with pulse ox of 95% on 2 L. This time patient is resting comfortably in bed. Patient denies any significant pain. Patient denies nausea vomiting or diarrhea. Patient denies chest pain or shortness of breath. Patient denies any urinary burning or frequency Review of Systems Please refer to HPI otherwise unremarkable Past Medical History Past Medical History: GERD/Reflux, Hearing Disorder / Deafness, Hyperlipidemia, Osteoarthritis (OA) Additional Past Medical History / Comment(s): neuropathy in legs, take psych meds for severe insomnia, kidney issues caused by med. in past-no longer any problems, very [place] even w/aids, History of Any Multi-Drug Resistant Organisms: None Reported Past Surgical History: Cholecystectomy, Heart Catheterization, Tonsillectomy Additional Past Surgical History / Comment(s): negative heart cath 2020, colonoscopies Past Anesthesia/Blood Transfusion Reactions: No Reported Reaction Additional Past Anesthesia/Blood Transfusion Reaction / Comm: na Past Psychological History: No Psychological Hx Reported Smoking Status: Never smoker Past Alcohol Use History: None Reported Past Drug Use History: None Reported - Past Family History Mother Family Medical History: COPD Father Additional Family Medical History / Comment(s): CAD, - unknown cause to patient Medications and Allergies Home Medications Medication Instructions Recorded Confirmed Type Gabapentin [Neurontin] 400 mg PO QAM 09/13/20 11/10/24 History Levothyroxine Sodium [Synthroid] 50 mcg PO DAILY 09/13/20 11/10/24 History Pantoprazole Sodium 40 mg PO DAILY 09/13/20 11/10/24 History Rosuvastatin Calcium 5 mg PO DAILY 09/13/20 11/10/24 History Sucralfate [Carafate] 1 gm PO ACHS 09/13/20 11/10/24 History clonazePAM 0.5 mg PO HS 09/13/20 11/10/24 History traZODone HCL 300 mg PO HS 09/13/20 11/10/24 History Perphenazine 8mg 8 mg PO BID 10/17/23 11/10/24 History Aspirin 81 mg PO DAILY #30 tab 10/19/23 11/10/24 Rx Fish Oil/Dha/Epa [Fish Oil 1,200 1 each PO DAILY 11/09/24 11/10/24 History mg Fish Oil] Gabapentin [Neurontin] 800 mg PO HS 11/09/24 11/10/24 History Melatonin 3 mg PO HS 11/09/24 11/10/24 History QUEtiapine [SEROquel] 400 mg PO HS 11/09/24 11/10/24 History Vitamin E (Dl,Tocopheryl Acet) 400 unit PO DAILY 11/09/24 11/10/24 History [Vitamin E (400 Iu = 180 mg)] Allergies Allergy/AdvReac Type Severity Reaction Status Date / Time acetaminophen AdvReac Nausea & Verified 11/10/24 06:40 [From Tylenol-Codeine #3] Vomiting codeine AdvReac Nausea & Verified 11/10/24 06:40 [From Tylenol-Codeine #3] Vomiting Physical Exam Vitals: Vital Signs Temp Pulse Resp BP Pulse Ox 11/10/24 11:25 75 10 L 102/62 100 11/10/24 10:55 73 16 100/58 100 11/10/24 10:40 100 11/10/24 10:39 70 16 118/60 100 11/10/24 10:24 72 16 113/63 11/10/24 10:09 74 16 107/64 100 11/10/24 09:54 96.8 F L 82 15 132/91 100 11/10/24 07:20 78 15 95 11/10/24 07:00 97.4 F L 82 15 133/74 96 Intake and Output 11/09/24 11/10/24 11/10/24 22:59 06:59 14:59 Intake Total 1751 Output Total 200 Balance 1551 Intake: IV 1551 Oral 200 Output: Estimated Blood Loss 200 Other: Weight 99.2 kg Head normocephalic Neck supple Lungs clear to auscultation bilaterally no wheezing or crackles Heart regular rate and rhythm S1-S2, no rub or gallop Abdomen is soft nontender nondistended positive bowel sounds no hepatosplenomegaly Extremities no edema. right hip dressing clean dry and intact Neuro alert and orientated to 3 Results CBC & Chem 7: 11/10/24 06:50 11/10/24 06:50 Labs: Abnormal Lab Results - Last 24 Hours (Table) 11/10/24 11/10/24 Range/Units 06:50 06:50 WBC 4.45 L (4.50-10.00) 10*3/uL BUN 20 H (7-17) mg/dL Creatinine 1.11 H (0.52-1.04) mg/dL Glucose 104 H (74-99) mg/dL Assessment and Plan Assessment: 1. Status post right hip arthroplasty on 11/10/2024 2. History of depression 3. History of insomnia 4. History of hyperlipidemia 5. History of hypothyroidism 6. History of chronic kidney disease stage III Thank you for this consultation we will continue to follow patient closely throughout stay Repeat labs ordered for a.m. Time with Patient: Greater than 30 (Greater than 60% of the total time spent in counseling and coordination of care)
[2024-11-10] MEDS: ceFAZolin 2 GM in DEXTROSE 5% IN WATER 50 ML IVPB SCH (15:55)
[2024-11-10] MEDS: hydrOXYzine pamoate 25 MG CAP PO PRN (17:06)
[2024-11-10] MEDS: SUCRALFATE 1 GM TAB PO SCH (17:06)
[2024-11-10] MEDS: HYDROcodone/APAP 7.5-325MG 1 EACH TAB PO PRN (17:11)
[2024-11-10] MEDS: traZODone HCL 100 MG TAB PO SCH (20:35)
[2024-11-10] MEDS: SENNOSIDES-DOCUSATE SODIUM 1 EACH TAB PO SCH (20:35)
[2024-11-10] MEDS: clonazePAM 0.5 MG TAB PO SCH (20:35)
[2024-11-10] MEDS: GABAPENTIN 400 MG CAP PO SCH (20:35)
[2024-11-10] MEDS: QUEtiapine 200 MG TAB PO SCH (21:35)
[2024-11-10] MEDS: PERPHENAZINE 4 MG TAB PO SCH (21:36)
[2024-11-10] MEDS: MELATONIN 3 MG TABLET PO SCH (22:04)
[2024-11-11] MEDS: LEVOTHYROXINE 50 MCG TAB PO SCH (06:05)
[2024-11-11] MEDS: PANTOPRAZOLE 40 MG TABLET PO SCH (08:21)
[2024-11-11] MEDS: RIVAROXABAN 10 MG TAB PO SCH (08:21)
[2024-11-11] MEDS: ATORVASTATIN 10 MG TAB PO SCH (08:21)
[2024-11-11 08:28] LABS: Basophils # (A) 0.01 X 10*3/uL (0.00-0.10); Basophils % (A) 0.1 %; Eosinophils # (A) 0 X 10*3/uL (0.04-0.35); Eosinophils % (A) 0 %; HCT 34.9 % (37.2-46.3); Lymphocytes # (A) 0.85 X 10*3/uL (0.90-5.00); Lymphocytes % (A) 11.9 %; MCH 29.6 pg (27.0-32.0); MCHC 31.5 g/dL (32.0-37.0); MCV 93.8 FL (80.0-97.0); Mean Platelet Volume 11.3 FL (9.5-12.2); Monocytes # (A) 0.73 X 10*3/uL (0.20-1.00); Monocytes % (A) 10.2 %; NRBC Per 100 WBC 0 X 10*3/uL (0.00-0.01); Neutrophils # (A) 5.51 X 10*3/uL (1.80-7.70); Neutrophils % (A) 77.4 %; Platelet Count 144 X 10*3/uL (140-440); RBC 3.72 X 10*6/uL (4.10-5.20); RDW 12.6 % (11.5-14.5); WBC 7.13 X 10*3/uL (4.50-10.00)
[2024-11-11 09:11] LABS: ALT 22 U/L (8-44); AST 29 U/L (13-35); Albumin 3.5 g/dL (3.8-4.9); Albumin/Globulin Ratio 1.84 Ratio (1.60-3.17); Alkaline Phosphatase 75 U/L (41-126); Blood Urea Nitrogen 18.7 mg/dL (9.0-27.0); Calcium 8.4 mg/dL (8.7-10.3); Carbon Dioxide 23.6 mmol/L (21.6-31.8); Chloride 103 mmol/L (96-109); Globulin 1.9 g/dL (1.6-3.3); Glucose 122 mg/dL (70-110); Potassium 4.3 mmol/L (3.5-5.5); Sodium 137 mmol/L (135-145); Total Bilirubin 0.3 mg/dL (0.3-1.2); Total Protein 5.4 g/dL (6.2-8.2)
[2024-11-11] MEDS: GABAPENTIN 400 MG CAP PO SCH (11:34)
--- NOTE | 2024-11-11 11:59 | P.PN ---
Subjective Progress Note Date: 11/11/24 Ofelia Richardson is a 69-year-old female patient presented for an elective right hip arthroplasty with Dr. Turpin. Patient has past medical history of GERD, hearing disorder, hyperlipidemia, osteoarthritis, hard of hearing, depression, and insomnia, chronic kidney disease and osteoarthritis. Lab work showing white blood cell 4.45 hemoglobin 14.1, creatinine 1.11 and bun 20. Current vital signs temp 96.8, heart rate 82, respiratory rate 15, blood pressure 132/61 with pulse ox of 95% on 2 L. This time patient is resting comfortably in bed. Patient denies any significant pain. Patient denies nausea vomiting or diarrhea. Patient denies chest pain or shortness of breath. Patient denies any urinary burning or frequency On 11/11/2024 patient was seen and examined on the medical floor she is alert and oriented x 3 in no apparent distress, earlier this morning patient was upset with the nursing staff she was yelling and not cooperating, psychiatry consultation was requested, otherwise patient denies any complaints at this time she stated that her pain is well-controlled there is no fever or chills no headache or dizziness no chest pain no shortness of breath no cough no nausea or vomiting no abdominal pain no diarrhea no urinary symptoms white blood count is 7.13 hemoglobin 11.0 platelet count 144 BUN 18.7 creatinine 1.1 Objective - Vital Signs Vital signs: Vital Signs Temp 100.4 F H 11/11/24 07:40 Pulse 102 H 11/11/24 07:40 Resp 17 11/11/24 07:40 BP 97/63 11/11/24 07:40 Pulse Ox 91 L 11/11/24 07:40 FiO2 Intake & Output 11/10/24 11/11/24 11/11/24 18:59 06:59 18:59 Intake Total 1931 Output Total 200 Balance 1731 Weight 99.2 kg Intake: IV 1551 Oral 380 Output: Estimated Blood Loss 200 Other: Voiding Method Toilet # Voids 0 5 - Exam In general patient is alert and oriented x 3 in no distress HEENT head normocephalic and atraumatic Neck is supple no JVD no goiter no lymphadenopathy no carotid bruit Chest examination is clear to auscultation no crackles no wheezing Cardiac exam reveals regular heart sounds S1 and S2 no gallops no murmurs Abdomen is soft nontender no organomegaly with normal bowel sounds Extremity exam reveals no edema no cyanosis or clubbing Neurological examination reveals no gross focal deficits - Labs CBC & Chem 7: 11/11/24 03:03 11/11/24 03:03 Labs: Abnormal Lab Results - Last 24 Hours (Table) 11/11/24 11/11/24 Range/Units 03:03 03:03 RBC 3.72 L (4.10-5.20) X 10*6/uL Hgb 11.0 L (12.0-15.0) g/dL Hct 34.9 L (37.2-46.3) % MCHC 31.5 L (32.0-37.0) g/dL Lymphocytes # 0.85 L (0.90-5.00) X 10*3/uL Eosinophils # 0 L (0.04-0.35) X 10*3/uL Est GFR (CKD-EPI) 55 L (>=60) Glucose 122 H (70-110) mg/dL Calcium 8.4 L (8.7-10.3) mg/dL Total Protein 5.4 L (6.2-8.2) g/dL Albumin 3.5 L (3.8-4.9) g/dL Assessment and Plan Assessment: 1. Status post right hip arthroplasty on 11/10/2024 2. History of depression 3. History of insomnia 4. History of hyperlipidemia 5. History of hypothyroidism 6. History of chronic kidney disease stage III Thank you for this consultation we will continue to follow patient closely throughout stay Repeat labs ordered for a.m.
--- NOTE | 2024-11-11 12:04 | P.PN ---
Subjective Progress Note Date: 11/11/24 Principal diagnosis: Right hip osteoarthritis Patient was seen at bedside this morning sitting up in chair with dressing present over right hip. Patient appeared to be somewhat confused during encounter and was not responding to questions appropriately when asked. Patient did get up with therapy but was somewhat combative. Medicine is consulted behavioral health for eval. Objective - Vital Signs Vital signs: Vital Signs Temp 100.4 F H 11/11/24 07:40 Pulse 102 H 11/11/24 07:40 Resp 17 11/11/24 07:40 BP 97/63 11/11/24 07:40 Pulse Ox 91 L 11/11/24 07:40 FiO2 Intake & Output 11/10/24 11/11/24 11/11/24 18:59 06:59 18:59 Intake Total 1931 Output Total 200 Balance 1731 Weight 99.2 kg Intake: IV 1551 Oral 380 Output: Estimated Blood Loss 200 Other: Voiding Method Toilet # Voids 0 5 - Exam Right hip: Incision is clean, dry, and intact. The exofin fusion tape is in good condi tion. There is minimal soft tissue swelling and ecchymosis surrounding the medial and lateral aspects of the incision. Calf is soft, no tenderness with palpation. Plantar flexion, dorsiflexion, EHL, FHL are intact. Sensory exam to light touch throughout the extremity is intact, dorsal pedis pulses 2+. - Labs CBC & Chem 7: 11/11/24 03:03 11/11/24 03:03 Labs: Abnormal Lab Results - Last 24 Hours (Table) 11/11/24 11/11/24 Range/Units 03:03 03:03 RBC 3.72 L (4.10-5.20) X 10*6/uL Hgb 11.0 L (12.0-15.0) g/dL Hct 34.9 L (37.2-46.3) % MCHC 31.5 L (32.0-37.0) g/dL Lymphocytes # 0.85 L (0.90-5.00) X 10*3/uL Eosinophils # 0 L (0.04-0.35) X 10*3/uL Est GFR (CKD-EPI) 55 L (>=60) Glucose 122 H (70-110) mg/dL Calcium 8.4 L (8.7-10.3) mg/dL Total Protein 5.4 L (6.2-8.2) g/dL Albumin 3.5 L (3.8-4.9) g/dL Assessment and Plan Assessment: 1. Right hip osteoarthritis - Postop day 1 status post right total hip arthroplasty Plan: 1. Right hip osteoarthritis -direct anterior right total hip arthroplasty performed yesterday, 11/10/2024. Patient at bedside this morning with dressing present over right hip. Patient was somewhat combative with therapy this morning. Medicine has consulted behavioral health for evaluation. Continue with pain medication for now. Weightbearing as tolerated with walker and assistance. plan for patient to stay a couple more days for further evaluation and possible discharge home with health services versus rehab. 2. Appreciate medical management 3. Pain management -[place] 4. DVT prophylaxis -Xarelto 5. GI prophylaxis -senna 6. PT/OT -weightbearing as tolerated with walker and assistance 7. Encourage incentive spirometer use 8. Discharge planning - plan for patient to stay a couple more days for further evaluation and possible discharge home with health services versus rehab. Time with Patient: Less than 30
[2024-11-11] MEDS: IBUPROFEN 800 MG TAB PO PRN (22:03)
--- NOTE | 2024-11-11 22:45 | XR ---
EXAMINATION TYPE: XR chest 1V portable DATE OF EXAM: 11/11/2024 10:06 PM COMPARISON: Chest radiographs from 10/16/2023 CLINICAL INDICATION: Female, 69 years old with history of High Temperature; [facility] TECHNIQUE: XR chest 1V portable Frontal view of the chest. FINDINGS: Lungs/Pleura: There is no evidence of pleural effusion, focal consolidation, or pneumothorax. Pulmonary vascularity: Unremarkable. Heart/mediastinum: Cardiomediastinal silhouette is unremarkable. Musculoskeletal: No acute osseous pathology. Other findings: None IMPRESSION: No acute cardiopulmonary disease/process. [facility], , 11/11/2024 10:42 PM
[2024-11-12 07:54] VITALS: RESP 16; TEMP 98.2
--- NOTE | 2024-11-12 09:08 | P.PN ---
Subjective Progress Note Date: 11/12/24 Ofelia Richardson is a 69-year-old female patient presented for an elective right hip arthroplasty with Dr. Turpin. Patient has past medical history of GERD, hearing disorder, hyperlipidemia, osteoarthritis, hard of hearing, depression, and insomnia, chronic kidney disease and osteoarthritis. Lab work showing white blood cell 4.45 hemoglobin 14.1, creatinine 1.11 and bun 20. Current vital signs temp 96.8, heart rate 82, respiratory rate 15, blood pressure 132/61 with pulse ox of 95% on 2 L. This time patient is resting comfortably in bed. Patient denies any significant pain. Patient denies nausea vomiting or diarrhea. Patient denies chest pain or shortness of breath. Patient denies any urinary burning or frequency On 11/11/2024 patient was seen and examined on the medical floor she is alert and oriented x 3 in no apparent distress, earlier this morning patient was upset with the nursing staff she was yelling and not cooperating, psychiatry consultation was requested, otherwise patient denies any complaints at this time she stated that her pain is well-controlled there is no fever or chills no headache or dizziness no chest pain no shortness of breath no cough no nausea or vomiting no abdominal pain no diarrhea no urinary symptoms white blood count is 7.13 hemoglobin 11.0 platelet count 144 BUN 18.7 creatinine 1.1 On 11/12/2024 patient is alert and oriented resting comfortably in bed. Still awaitingPsychiatry input. Patient had elevated temp and tachycardia chest x-ray completed showing no acute cardiopulmonary process.. UA and blood culture has been ordered. Patient denies chest pain or shortness of breath. Patient denies nausea vomiting or diarrhea. Patient denies any urinary burning or frequency Objective - Vital Signs Vital signs: Vital Signs Temp 98.2 F 11/12/24 07:04 Pulse 90 11/12/24 07:04 Resp 16 11/12/24 07:04 BP 103/68 11/12/24 07:04 Pulse Ox 96 11/12/24 07:04 FiO2 Intake & Output 11/11/24 11/12/24 11/12/24 18:59 06:59 18:59 Intake Total 1450 Output Total 1300 Balance 150 Intake: Oral 1450 Output: Urine 1300 Straight 650 Other: # Voids 3 2 - Exam In general patient is alert and oriented x 3 in no distress HEENT head normocephalic and atraumatic Neck is supple no JVD no goiter no lymphadenopathy no carotid bruit Chest examination is clear to auscultation no crackles no wheezing Cardiac exam reveals regular heart sounds S1 and S2 no gallops no murmurs Abdomen is soft nontender no organomegaly with normal bowel sounds Extremity exam reveals no edema no cyanosis or clubbing Neurological examination reveals no gross focal deficits - Labs CBC & Chem 7: 11/11/24 03:03 11/11/24 03:03 Labs: Abnormal Lab Results - Last 24 Hours (Table) 11/11/24 Range/Units 03:03 Est GFR (CKD-EPI) 55 L (>=60) Glucose 122 H (70-110) mg/dL Calcium 8.4 L (8.7-10.3) mg/dL Total Protein 5.4 L (6.2-8.2) g/dL Albumin 3.5 L (3.8-4.9) g/dL Assessment and Plan Assessment: 1. Status post right hip arthroplasty on 11/10/2024 2. History of depression 3. History of insomnia 4. History of hyperlipidemia 5. History of hypothyroidism 6. History of chronic kidney disease stage III 7. Fever and leukocytosis 8. Altered mental status with increased combative behavior. Psychiatry services consulted Thank you for this consultation we will continue to follow patient closely throughout stay Repeat labs ordered for a.m. Chest x-ray negative UA and blood cultures ordered
--- NOTE | 2024-11-12 11:50 | P.PN ---
Subjective Progress Note Date: 11/12/24 Principal diagnosis: Right hip osteoarthritis Patient was seen at bedside this morning sitting up in chair with dressing present over right hip. Patient appeared to be somewhat emotional during encounter talking about her mother who has dementia. Patient did get up with therapy yesterday but was somewhat combative. Medicine has consulted behavioral health for eval and awaiting eval at this time. Patient states she wants to go home later today. Still needs to improve with PT/OT. Objective - Vital Signs Vital signs: Vital Signs Temp 98.2 F 11/12/24 07:04 Pulse 90 11/12/24 07:04 Resp 16 11/12/24 07:04 BP 103/68 11/12/24 07:04 Pulse Ox 96 11/12/24 07:04 FiO2 Intake & Output 11/11/24 11/12/24 11/12/24 18:59 06:59 18:59 Intake Total 1450 Output Total 1300 Balance 150 Intake: Oral 1450 Output: Urine 1300 Straight 650 Other: # Voids 3 2 - Exam Right hip: Incision is clean, dry, and intact. The exofin fusion tape is in good condition. There is minimal soft tissue swelling and ecchymosis surrounding the medial and lateral aspects of the incision. Calf is soft, no tenderness with palpation. Plantar flexion, dorsiflexion, EHL, FHL are intact. Sensory exam to light touch throughout the extremity is intact, dorsal pedis pulses 2+. - Labs CBC & Chem 7: 11/11/24 03:03 11/11/24 03:03 Assessment and Plan Assessment: 1. Right hip osteoarthritis - Postop day 2 status post right total hip arthroplasty Plan: 1. Right hip osteoarthritis -direct anterior right total hip arthroplasty performed 11/10/2024. Patient at bedside this morning with dressing pr esent over right hip. Patient was somewhat combative with therapy yesterday morning. Medicine has consulted behavioral health for evaluation. Awaiting behavioral health eval/recs. Continue with pain medication for now. Weightbearing as tolerated with walker and assistance. Discharge home later to day pending psych consult recs and improvement with PT/OT 2. Appreciate medical management 3. Pain management -[place] 4. DVT prophylaxis -Xarelto 5. GI prophylaxis -senna 6. PT/OT -weightbearing as tolerated with walker and assistance 7. Encourage incentive spirometer use 8. Discharge planning - discharge home later today pending psych consult recs and improvement with PT/OT Time with Patient: Less than 30
--- NOTE | 2024-11-12 12:06 | P.DS ---
Providers Date of admission: 11/10/2024 Expected date of discharge: 11/12/24 Attending physician: Joaquin Gonsalez Consults: 11/10/24 09:24 Consult Physician Routine Consulting Provider: Sanjay Canales Consult Reason/Comments: medical management s/p direct anterior right total hip arthroplasty Do you want consulting provider notified?: Yes 11/11/24 10:44 Consult Physician Routine Consulting Provider: Leonard Renteria Consult Reason/Comments: behavioral issues, aggression, decision making capacity, ?need for guardian Do you want consulting provider notified?: Yes Primary care physician: Sanjay Canales [facility] Course: Date of admission: 11/10/2024 Date of discharge: 11/12/2024 Admission diagnosis: Right hip osteoarthritis Discharge diagnosis: Same Attending physician: Dr. Gonsalez Surgical procedures: Direct anterior right total hip arthroplasty Brief history: Patient is a 69-year-old female with a history of progressive primary right hip osteoarthritis. At this point patient has failed conservative treatment measures and has opted to proceed with a elective direct anterior right total hip arthroplasty. Hospital course: Details of patient's surgery can be found in operative report. Patient tolerated the procedure well and was subsequently transported to orthopedic floor. Patient's orthopeidc and medical care was provided daily. Patient had daily laboratory tests performed for evaluation of overall blood counts. Patient had daily physical therapy to include strengthening range of motion as well as education with walker ambulation. Patient was treated with Xarelto for their postoperative DVT prophylaxis during their inpatient stay. Patient was noted to have a relatively uneventful postoperative course. Patient reported satisfactory pain control with oral pain medications by postoperative day 2. Patient showed satisfactory progress with physical therapy. Patient moved steadily through the program and had no difficulty meeting the goals by postoperative day 2. Given patient's otherwise satisfactory course and having met physical therapy goals, plan is to discharge patient home with health services on postoperative day 2. Discharge condition/disposition: Patient will be discharged home with health services in stable condition. Discharge medications: Instructions are given on resumption of patient's normal daily medications per primary care recommendation, in addition patient will be prescribed [place]; senna; Eliquis. Discharge instructions: 1. Wound care and infection precautions, keep incision dry and covered while showering, no lotions, creams, moisturizers. No soaking, tubs, pools, hottubs. Do not scrub over the incision. 2. Weight-bear as tolerated with walker / cane until follow-up. 3. Ice and elevate when necessary. Do not exceed 20 minutes per hour with ice pack. 4. Utilize compression sleeve until seen at first follow up appointment. 5. Visiting nursing care. 6. Home physical therapy. 7. Pain meds and anticoagulants per prescription. 8. Pain medication has potential to cause constipation. Increase oral fluid and fiber intake. Contact primary care provider if you have not had a bowel movement within 48 hours after discharge 9. No anti-inflammatory medication until discussed at first post operative visit, this including Motrin, Aleve, Mobic, Diclofenac. 10. Follow up in office at 2 weeks postop with Mark Anthony Baptiste PA-C / Tawanda Castro PA-C 11. Follow up with your primary care doctor 7-10 days after discharge. 12. Contact [facility] with any questions, . Assessment: Right hip osteoarthritis Procedures: Direct anterior right total hip arthroplasty Patient Condition at Discharge: Good Plan - Discharge Summary Discharge Rx Participant: Yes New Discharge Prescriptions: New Apixaban [Eliquis] 2.5 mg PO BID #60 tab HYDROcodone/APAP 7.5-325MG [[place] 7.5-325] 1 tab PO Q6HR PRN #28 tab PRN Reason: Pain Sennosides/Docusate Sodium [Senna Plus 8.6-50 mg Softgel] 1 each PO DAILY #20 capsule No Action Gabapentin [Neurontin] 400 mg PO QAM traZODone HCL 300 mg PO HS Rosuvastatin Calcium 5 mg PO DAILY clonazePAM 0.5 mg PO HS Pantoprazole Sodium 40 mg PO DAILY Levothyroxine Sodium [Synthroid] 50 mcg PO DAILY Sucralfate [Carafate] 1 gm PO ACHS Perphenazine 8mg 8 mg PO BID Vitamin E (Dl,Tocopheryl Acet) [Vitamin E (400 Iu = 180 mg)] 400 unit PO DAILY Aspirin 81 mg PO DAILY #30 tab Melatonin 3 mg PO HS QUEtiapine [SEROquel] 400 mg PO HS Gabapentin [Neurontin] 800 mg PO HS Fish Oil/Dha/Epa [Fish Oil 1,200 mg Fish Oil] 1 each PO DAILY Discharge Medication List Gabapentin [Neurontin] 400 mg PO QAM 09/13/20 [History] Levothyroxine Sodium [Synthroid] 50 mcg PO DAILY 09/13/20 [History] Pantoprazole Sodium 40 mg PO DAILY 09/13/20 [History] Rosuvastatin Calcium 5 mg PO DAILY 09/13/20 [History] Sucralfate [Carafate] 1 gm PO ACHS 09/13/20 [History] clonazePAM 0.5 mg PO HS 09/13/20 [History] traZODone HCL 300 mg PO HS 09/13/20 [History] Perphenazine 8mg 8 mg PO BID 10/17/23 [History] Aspirin 81 mg PO DAILY #30 tab 10/19/23 [Rx] Fish Oil/Dha/Epa [Fish Oil 1,200 mg Fish Oil] 1 each PO DAILY 11/09/24 [History] Gabapentin [Neurontin] 800 mg PO HS 11/09/24 [History] Melatonin 3 mg PO HS 11/09/24 [History] QUEtiapine [SEROquel] 400 mg PO HS 11/09/24 [History] Vitamin E (Dl,Tocopheryl Acet) [Vitamin E (400 Iu = 180 mg)] 400 unit PO DAILY 11/09/24 [History] Apixaban [Eliquis] 2.5 mg PO BID #60 tab 11/12/24 [Rx] HYDROcodone/APAP 7.5-325MG [[place] 7.5-325] 1 tab PO Q6HR PRN #28 tab 11/12/24 [Rx] Sennosides/Docusate Sodium [Senna Plus 8.6-50 mg Softgel] 1 each PO DAILY #20 capsule 11/12/24 [Rx] Follow up Appointment(s)/Referral(s): Tawanda Castro PAC [PHYSICIAN HEARING AND SPEECH ASSISTANT] - 2 Weeks [facility], [NON-STAFF] - 1-2 Days ([facility] will call you to schedule your in home nursing and physical therapy visits. ) Patient Instructions/Handouts: Anterior Hip Replacement (GEN) Activity/Diet/Wound Care/Special Instructions: Orthopedic Discharge Instructions: 1. Wound care and infection precautions, keep incision dry and covered while showering, no lotions, creams, moisturizers. No soaking, pools, hot tubs. Do not scrub over incision. 2. Weight-bear as tolerated with walker / cane until follow-up. 3. Ice and elevate when necessary. Do not exceed 20 minutes per hour with ice pack. 4. Utilize compression sleeve until seen at first follow up appointment. 5. Pain meds and anticoagulants per prescription. 6. Pain medication has potential to cause constipation. Increase oral fluid and fiber intake. Contact primary care provider if you have not had a bowel movement within 48 hours after discharge. 7. No anti-inflammatory medication until discussed at first post operative visit, this including Motrin, Aleve, Mobic, Diclofenac. 8. Follow up in office at 2 weeks postop with Mark Anthony Baptiste PA-C / Tawanda Castro PA-C 9. Follow up with your primary care doctor 7-10 days after discharge. 10. Contact [facility] with any questions, . Keep incision clean, dry, intact. While showering, cover fusion tape with Saran wrap. Keep fusion tape on until follow-up appointment office in 2 weeks Discharge Disposition: HOME WITH HOME HEALTH SERVICES
[2024-11-12 12:20] LABS: Appearance,Urine Clear (Clear); Bilirubin,Urine Negative (Negative); Blood,Urine Negative (Negative); Color,Urine Yellow; Glucose,Urine (UA) Negative (Negative); Ketones,Urine Negative (Negative); Leukocyte Esterase,Urine Negative (Negative); Nitrite,Urine Negative (Negative); Protein,Urine Trace (Negative); Specific Gravity,Urine 1.015 (1.001-1.035); Urobilinogen,Urine <2.0 mg/dL (<2.0)
--- NOTE | 2024-11-12 13:04 | P.CN ---
Psychiatric Consult - . Consult date: 11/12/24 Consult:: 11/12/24 12:54 IDENTIFYING DATA: This patient is a 69-year-old female, on SSD REASON FOR REFERRAL: Psychiatry was consulted for behavioral issues, aggression, decision-making capacity, need for guardian HISTORY OF PRESENT ILLNESS: The patient presented to the hospital with right hip pain and is s/p right total hip arthroplasty. Patient yesterday became combative during physical therapy to which patient states was due to her having severe pain at the time. She states her pain is better today and was goal oriented. Patient did exhibit confusion, she was A&Ox2 not date/year. She was unable to elicit her current medical diagnoses and current medications she is taking, states that she does have a pill pack that she uses in order to take her meds daily. Patient expresses an inability to tend to her ADLs however did state that a mobility architect manager will be coming to her house to help out. At this time patient denies any suicidal or homicidal ideations, intent or plan. Patient denies any auditory, visual hallucinations and denies any paranoia or delusions. Patients admits to using no substances PAST PSYCHIATRIC HISTORY: Patient has a history of insomnia. She states she takes Seroquel and perphenazine for insomnia, was unaware of the trazodone 300 mg at bedtime. She is also on Klonopin 0.5 mg at bedtime last filling this on 10/[address] Canales. She does report previous inpatient hospitalization however was able to elicit most recent one due to confusion. Patient denies any psychiatric outpatient follow-up. Patient denies any history of suicide attempts in the past. PAST MEDICAL HISTORY: neuropathy, chronic pain in lower back, DDD, left radius/ulnar fracture from fall, insomnia, stage 3 chronic kidney disease. ALLERGIES: as per EMR. CHEMICAL DEPENDENCY HISTORY: as per HPI. FAMILY PSYCHIATRIC/SUBSTANCE USE HISTORY: Denies SOCIAL HISTORY: Patient lives with partner named Donnie and is on SSD. MENTAL STATUS EXAM: General Appearance: Patient appears to be stated age is alert, and cooperative. Patient appears to have fair hygiene and grooming wearing hospital gown with fair eye contact. Behavior: Patient is calmly sitting next to bed without any agitated behavior. Speech: Patient's speech is fluent and nonpressured. Mood/Affect: Patient reports their mood is "okay", affect is congruent, constricted Suicidality/Homicidality: Patient denies having any suicidal or homicidal ideation intent or plan. Perceptions: Patient denies any visual hallucinations and denies any auditory hallucinations Though content/process: There is no evidence of any delusional thought content and thought process is linear and goal-directed. Memory and concentration: AOX2, not date or year Judgment and insight: Poor IMPRESSIONS: Unspecified neurocognitive disorder PLAN: -At this time patient DOES NOT meet criteria for inpatient psychiatric admission. -Patient DOES NOT have decision making capacity at this time and is unable to reason through and communicate/appreciate the risks, benefits and alternatives to treatment. -Would recommend the following medication changes/additions: Continue Seroquel 400 mg at bedtime, trazodone 300 mg at bedtime, perphenazine 8 mg twice daily, Klonopin 0.5 mg at bedtime. Patient encouraged to reach out to her PCP for further med adjustments -Psychiatry will sign off at this time -Please contact with any questions.
[2024-11-12 13:55] VITALS: BP 130/81; PULSE 99
== END 2024-11-12 15:25 | disposition home health service (06) ==
LOC: OR 05:54 → 4SSUR 11:39 → OR 11-12 15:25
PROVIDERS: ATTEND Orthopaedic Surgery
DX: M16.11 Unilateral primary osteoarthritis, right hip (principal); E03.9 Hypothyroidism, unspecified; E78.5 Hyperlipidemia, unspecified; F32.A Depression, unspecified; G89.18 Other acute postprocedural pain; N18.30 Chronic kidney disease, stage 3 unspecified; Z79.01 Long term (current) use of anticoagulants; Z79.82 Long term (current) use of aspirin; Z79.890 Hormone replacement therapy; Z79.899 Other long term (current) drug therapy; Z88.5 Allergy status to narcotic agent; Z88.6 Allergy status to analgesic agent; Z90.49 Acquired absence of other specified parts of digestive tract; Z90.89 Acquired absence of other organs
CPT/HCPCS: 97116; 97162; 97530; 97166; 64473; 80053; 80048; 85025 ×2; 85610; 81003; 87040; 73501; 71045; 27130; C1776; J2250; Q0175 ×2; J1100; J0690 ×2; J2405; J3010; J1171 ×2

== ENCOUNTER 2024-11-13 11:52 | Observation (INO) | payer MEDICARE, OTHER ==
--- NOTE | 2024-11-13 12:22 | ED ---
General Adult HPI - General Chief complaint: Recheck/Abnormal Lab/Rx Stated complaint: AMS Time Seen by Provider: 11/13/24 11:56 Source: patient, family, police, RN notes reviewed Mode of arrival: EMS Limitations: no limitations - History of Present Illness Initial comments: Patient is a 69-year-old female present to the emergency department with concer ns for weakness and mental status. Patient did have hip surgery done a week ago. Patient has been put on [place]. Patient has been more drowsy lately. Patient states she fell out of the chair because there was no armrest there. Patient fell reportedly 18 inches. Patient had weakness and difficulty getting up. Patient states she did have problems with this previously associated with hydrocodone. When confronted with this patient states she was not aware that [place] and hydrocodone were the same thing. - Related Data Home Medications Medication Instructions Recorded Confirmed Gabapentin [Neurontin] 400 mg PO DAILY 09/13/20 11/13/24 Pantoprazole Sodium 40 mg PO DAILY 09/13/20 11/13/24 Rosuvastatin Calcium 5 mg PO DAILY 09/13/20 11/13/24 Sucralfate [Carafate] 1 gm PO ACHS 09/13/20 11/13/24 clonazePAM 0.5 mg PO HS 09/13/20 11/13/24 traZODone HCL 300 mg PO HS 09/13/20 11/13/24 Perphenazine 8mg 8 mg PO BID 10/17/23 11/13/24 Fish Oil/Dha/Epa [Fish Oil 1,200 1 cap PO DAILY 11/09/24 11/13/24 mg Fish Oil] Gabapentin [Neurontin] 800 mg PO HS 11/09/24 11/13/24 Melatonin 3 mg PO HS 11/09/24 11/13/24 Vitamin E (Dl,Tocopheryl Acet) 400 unit PO DAILY 11/09/24 11/13/24 [Vitamin E (400 Iu = 180 mg)] Levothyroxine Sodium [Synthroid] 75 mcg PO DAILY 11/13/24 11/13/24 QUEtiapine [SEROquel] 400 mg PO HS 11/13/24 11/13/24 Sennosides/Docusate Sodium [Senna 1 cap PO DAILY 11/13/24 11/13/24 Plus 8.6-50 mg Softgel] Previous Rx's Medication Instructions Recorded Aspirin 81 mg PO DAILY #30 tab 10/19/23 Apixaban [Eliquis] 2.5 mg PO BID #60 tab 11/12/24 HYDROcodone/APAP 7.5-325MG [[place] 1 tab PO Q6HR PRN #28 tab 11/12/24 7.5-325] Allergies Allergy/AdvReac Type Severity Reaction Status Date / Time acetaminophen AdvReac Nausea & Verified 11/13/24 14:10 [From Tylenol-Codeine #3] Vomiting codeine AdvReac Nausea & Verified 11/13/24 14:10 [From Tylenol-Codeine #3] Vomiting Review of Systems ROS Statement: Those systems with pertinent positive or pertinent negative responses have been documented in the HPI. ROS Other: All systems not noted in ROS Statement are negative. Constitutional: Denies: fever Eyes: Denies: eye pain ENT: Denies: ear pain Respiratory: Denies: dyspnea Cardiovascular: Denies: chest pain Gastrointestinal: Denies: abdominal pain Musculoskeletal: Denies: back pain, arthralgia Past Medical History Past Medical History: No Reported History Additional Past Medical History / Comment(s): neuropathy, chronic pain in lower back, DDD, left radius/ulnar fracture from fall, insomnia, stage 3 chronic kidney disease History of Any Multi-Drug Resistant Organisms: None Reported Past Surgical History: No Surgical Hx Reported Additional Past Surgical History / Comment(s): negative heart cath 2020 Additional Past Anesthesia/Blood Transfusion Reaction / Comment(s): na Past Psychological History: Unable to Obtain Smoking Status: Unknown if ever smoked Past Alcohol Use History: None Reported Past Drug Use History: None Reported - Past Family History Mother Family Medical History: COPD Father Additional Family Medical History / Comment(s): CAD, - unknown cause to patient General Exam Limitations: no limitations General appearance: in no apparent distress Head exam: Present: atraumatic Eye exam: Present: normal appearance, PERRL (Pupils are constricted), EOMI ENT exam: Present: normal oropharynx Neck exam: Present: normal inspection. Absent: tenderness Respiratory exam: Present: normal lung sounds bilaterally Cardiovascular Exam: Present: regular rate, normal rhythm GI/Abdominal exam: Present: soft. Absent: tenderness Extremities exam: Present: normal inspection, full ROM. Absent: tenderness Neurological exam: Present: CN II-XII intact, other (Drowsy but responds to voice. Does follow commands. Patient does have some mild slurred speech.). Absent: motor sensory deficit Psychiatric exam: Present: normal affect, normal mood Skin exam: Present: normal color Course Vital Signs 11/13/24 12:00 Temperature 98 F Pulse Rate 101 H Respiratory 16 Rate Blood Pressure 121/79 O2 Sat by Pulse 90 L Oximetry EKG Findings - EKG Results: EKG: interpreted by ERMD, sinus rhythm, normal axis, normal QRS, normal ST/T Medical Decision Making - Medical Decision Making Was pt. sent in by a medical professional or institution (, PA, FIELD ATTENDANT, urgent care, hospital, or [place] health care facility...) When possible be specific @ -No Did you speak to anyone other than the patient for history (EMS, parent, family, police, friend...)? What history was obtained from this source @ -EMS helps provide history as patient is a poor historian Did you review nursing and triage notes (agree or disagree)? Why? @ -I reviewed and agree with nursing and triage notes Were old charts reviewed (outside hosp., previous admission, EMS record, old EKG, old radiological studies, urgent care reports/EKG's, [place] health care facility records)? Report findings @ -No old charts were reviewed Differential Diagnosis (chest pain, altered mental status, abdominal pain women, abdominal pain men, vaginal bleeding, weakness, fever, dyspnea, syncope, headache, dizziness, GI bleed, back pain, seizure, CVA, palpatations, mental h ealth, musculoskeletal)? @ -Differential Altered Mental Status: Hypoglycemia, DKA, hypercapnia, ETOH, overdose, CO poisoning, trauma, myxedema coma, HTN encephalopathy, infection, encephalitis, psychosis, intercranial hemorrhage, hepatic encephalopathy, meningitis, CVA, this is not meant to be an all-inclusive list EKG interpreted by me (3pts min.). @ -As above X-rays interpreted by me (1pt min.). @ -Chest x-ray shows no acute process CT interpreted by me (1pt min.). @ -CT scan of the brain does not reveal acute abnormality U/S interpreted by me (1pt. min.). @ -None done What testing was considered but not performed or refused? (CT, X-rays, U/S, labs)? Why? @ -None What meds were considered but not given or refused? Why? @ -None Did you discuss the management of the patient with other professionals (professionals i.e. Dr., PA, FIELD ATTENDANT, lab, RT, psych nurse, director social welfare, systems integration engineer, teacher, marketing officer, human services case manager)? Give summary @ -Case was discussed with Dr. Canales who will admit his patient Was smoking cessation discussed for >3mins.? @ -No Was critical care preformed (if so, how long)? @ -No Were there social determinants of health that impacted care today? How? (Homel essness, low income, unemployed, alcoholism, drug addiction, transportation, low edu. Level, literacy, decrease access to med. care, assisted, rehab)? @ -No Was there de-escalation of care discussed even if they declined (Discuss DNR or withdrawal of care, Hospice)? DNR status @ -No What co-morbidities impacted this encounter? (DM, HTN, Smoking, COPD, CAD, Cancer, CVA, ARF, Chemo, Hep., AIDS, mental health diagnosis, sleep apnea, morbid obesity)? @ -Recent hip surgery Was patient admitted / discharged? Hospital course, mention meds given and route, prescriptions, significant lab abnormalities, going to OR and other pertinent info. @ -Patient presents with drowsiness and generalized weakness. Patient is on hydrocodone which she has had problems with previously. Patient does have some mild slurred speech and drowsiness likely secondary to this. Troponin is not negative. Patient will be admitted for observation, pain medications will need to be decreased. Troponin will be rechecked. Patient reevaluated and unchanged. Patient updated. Admission orders written. Undiagnosed new problem with uncertain prognosis? @ -No Drug Therapy requiring intensive monitoring for toxicity (Heparin, Nitro, Insulin, Cardizem)? @ -No Were any procedures done? @ -No Diagnosis/symptom? @ -Altered mental status Acute, or Chronic, or Acute on Chronic? @ -Acute Uncomplicated (without systemic symptoms) or Complicated (systemic symptoms)? @ -Default Side effects of treatment? @ -No Exacerbation, Progression, or Severe Exacerbation? @ -No Poses a threat to life or bodily function? How? (Chest pain, [place], GA, pneumonia, PE, COPD, DKA, ARF, appy, cholecystitis, CVA, Diverticulitis, Homicidal, Suicidal, threat to staff... and all critical care pts) @ -No - Lab Data Result diagrams: 11/13/24 12:30 11/13/24 12:30 Lab Results 11/13/24 11/13/24 11/13/24 Range/Units 12:30 12:30 12:30 WBC 6.17 (4.50-10.00) 10*3/uL RBC 3.31 L (4.10-5.20) 10*6/uL Hgb 10.1 L D (12.0-15.0) g/dL Hct 30.0 L (37.2-46.3) % MCV 90.6 (80.0-97.0) fL MCH 30.5 (27.0-32.0) pg MCHC 33.7 (32.0-37.0) g/dL Plt Count 130 L (140-440) 10*3/uL MPV 11.8 (9.5-12.2) fL Immature Gran % (Auto) 0.3 % Neutrophils % 77.5 % Lymphocytes % 11.5 % Monocytes % 9.4 % Eosinophils % 1.1 % Basophils % 0.2 % Immature Gran # 0.02 (0.00-0.04) 10*3/uL Neutrophils # 4.78 (1.80-7.70) 10*3/uL Lymphocytes # 0.71 L (0.90-5.00) 10*3/uL Monocytes # 0.58 (0.20-1.00) 10*3/uL Eosinophils # 0.07 (0.04-0.35) 10*3/uL Basophils # 0.01 (0.00-0.10) 10*3/uL PT 11.4 (10.0-12.5) sec INR 1.0 (<1.2) APTT 30.6 H (22.0-30.0) sec Sodium 136 L (137-145) mmol/L Potassium 3.9 (3.5-5.1) mmol/L Chloride 102 (98-107) mmol/L Carbon Dioxide 25 (22-30) mmol/L Anion Gap 9 mmol/L BUN 21 H (7-17) mg/dL Creatinine 0.95 (0.52-1.04) mg/dL Est GFR (CKD-EPI)AfAm 72 (>60 ml/min/1.73 sqM) Est GFR (CKD-EPI)NonAf 62 (>60 ml/min/1.73 sqM) Glucose 141 H (74-99) mg/dL POC Glucose (mg/dL) (70-110) mg/dL POC Glu Spring Coiling Machine Setter ID Calcium 9.2 (8.4-10.2) mg/dL Total Bilirubin 1.1 (0.2-1.3) mg/dL AST 50 H (14-36) U/L ALT 28 (4-34) U/L Alkaline Phosphatase 72 (38-126) U/L Troponin I (0.000-0.034) ng/mL Total Protein 5.9 L (6.3-8.2) g/dL Albumin 3.3 L (3.5-5.0) g/dL Serum Alcohol <10 mg/dL 11/13/24 11/13/24 Range/Units 12:30 12:36 WBC (4.50-10.00) 10*3/uL RBC (4.10-5.20) 10*6/uL Hgb (12.0-15.0) g/dL Hct (37.2-46.3) % MCV (80.0-97.0) fL MCH (27.0-32.0) pg MCHC (32.0-37.0) g/dL Plt Count (140-440) 10*3/uL MPV (9.5-12.2) fL Immature Gran % (Auto) % Neutrophils % % Lymphocytes % % Monocytes % % Eosinophils % % Basophils % % Immature Gran # (0.00-0.04) 10*3/uL Neutrophils # (1.80-7.70) 10*3/uL Lymphocytes # (0.90-5.00) 10*3/uL Monocytes # (0.20-1.00) 10*3/uL Eosinophils # (0.04-0.35) 10*3/uL Basophils # (0.00-0.10) 10*3/uL PT (10.0-12.5) sec INR (<1.2) APTT (22.0-30.0) sec Sodium (137-145) mmol/L Potassium (3.5-5.1) mmol/L Chloride (98-107) mmol/L Carbon Dioxide (22-30) mmol/L Anion Gap mmol/L BUN (7-17) mg/dL Creatinine (0.52-1.04) mg/dL Est GFR (CKD-EPI)AfAm (>60 ml/min/1.73 sqM) Est GFR (CKD-EPI)NonAf (>60 ml/min/1.73 sqM) Glucose (74-99) mg/dL POC Glucose (mg/dL) 131 H (70-110) mg/dL POC Glu Spring Coiling Machine Setter ID Altimerasto Enriquez Calcium (8.4-10.2) mg/dL Total Bilirubin (0.2-1.3) mg/dL AST (14-36) U/L ALT (4-34) U/L Alkaline Phosphatase (38-126) U/L Troponin I 0.077 H* (0.000-0.034) ng/mL Total Protein (6.3-8.2) g/dL Albumin (3.5-5.0) g/dL Serum Alcohol mg/dL Disposition Clinical Impression: Altered mental status Disposition: ADMITTED IP TO THIS HOSP Is patient prescribed a controlled substance at d/c from ED?: No Referrals: Sanjay Canales MD [Primary Care Provider] - 1-2 days Time of Disposition: 14:20
[2024-11-13 12:38] LABS: Glucose,Whole Blood 131 mg/dL (70-110)
[2024-11-13 13:02] LABS: ALT 28 U/L (4-34); African American GFR (CKD) 72 (>60 ml/min/1.73 sqM); Albumin 3.3 g/dL (3.5-5.0); Alcohol <10 mg/dL; Anion Gap 9 mmol/L; Blood Urea Nitrogen 21 mg/dL (7-17); Calcium 9.2 mg/dL (8.4-10.2); Carbon Dioxide 25 mmol/L (22-30); Chloride 102 mmol/L (98-107); Glucose 141 mg/dL (74-99); Non-African American GFR(CKD) 62 (>60 ml/min/1.73 sqM); Sodium 136 mmol/L (137-145); Total Bilirubin 1.1 mg/dL (0.2-1.3); Total Protein 5.9 g/dL (6.3-8.2)
[2024-11-13 13:14] LABS: Basophils # (A) 0.01 10*3/uL (0.00-0.10); Basophils % (A) 0.2 %; Eosinophils # (A) 0.07 10*3/uL (0.04-0.35); Eosinophils % (A) 1.1 %; Lymphocytes # (A) 0.71 10*3/uL (0.90-5.00); Lymphocytes % (A) 11.5 %; MCH 30.5 pg (27.0-32.0); MCHC 33.7 g/dL (32.0-37.0); MCV 90.6 fL (80.0-97.0); Mean Platelet Volume 11.8 fL (9.5-12.2); Monocytes # (A) 0.58 10*3/uL (0.20-1.00); Monocytes % (A) 9.4 %; Neutrophils # (A) 4.78 10*3/uL (1.80-7.70); Neutrophils % (A) 77.5 %; Platelet Count 130 10*3/uL (140-440); RBC 3.31 10*6/uL (4.10-5.20); RDW 12.6 % (11.5-14.5); WBC 6.17 10*3/uL (4.50-10.00)
[2024-11-13 13:16] LABS: Partial Thromboplastin Time 30.6 sec (22.0-30.0); Prothrombin Time 11.4 sec (10.0-12.5)
[2024-11-13 13:19] LABS: AST 50 U/L (14-36); Alkaline Phosphatase 72 U/L (38-126); Potassium 3.9 mmol/L (3.5-5.1)
[2024-11-13 13:20] LABS: HGB 10.1 g/dL (12.0-15.0)
--- NOTE | 2024-11-13 13:41 | CT ---
EXAMINATION TYPE: CT brain wo con CT DLP: 1219.4 mGycm, Automated exposure control for dose reduction was used. DATE OF EXAM: 11/13/2024 1:36 PM COMPARISON: CT brain 10/17/2023 CLINICAL INDICATION:Female, 69 years old with history of Altered mental status, AMS TECHNIQUE: Brain: Multiple axial CT images of the brain were obtained without IV contrast. . Coronal and sagitta l reformats reviewed. FINDINGS: Brain: Extra-axial spaces: No abnormal extra-axial fluid collections. Ventricular system: Within normal limits Cerebral parenchyma: No acute intraparenchymal hemorrhage or mass effect. The maldonado-white junction is well differentiated. Scattered hypoattenuating areas are seen within the periventricular white matte r. Cerebellum: Unremarkable. Mass effect: No evidence of midline shift. Intracranial vasculature: unremarkable Soft tissues: Normal. Calvarium/osseous structures: No depressed skull fracture. Paranasal sinuses and mastoid air cells: Clear Visualized orbits: Bilateral aphakia IMPRESSION: 1. No acute intracranial process. 2. Nonspecific white matter changes, likely secondary to chronic small vessel ischemic disease. [facility], , 11/13/2024 1:38 PM
--- NOTE | 2024-11-13 13:59 | XR ---
EXAMINATION TYPE: XR chest 2V DATE OF EXAM: 11/13/2024 1:55 PM COMPARISON: 11/11/2024 CLINICAL INDICATION: Female, 69 years old with history of altered mental status: Shortness of breath TECHNIQUE: XR chest 2V views of the chest are obtained. FINDINGS: Scattered senescent parenchymal changes noted. No evidence for infiltrate. No evidence for atelectasis. Heart size is stable. Mediastinal structures are stable and grossly unremarkable. No evidence for hilar prominence. Degenerative changes dorsal spine. IMPRESSION: 1. No evidence for acute pulmonary disease. [facility], , 11/13/2024 1:57 PM
--- NOTE | 2024-11-13 14:00 | XR ---
EXAMINATION TYPE: XR pelvis AP view DATE OF EXAM: 11/13/2024 1:55 PM COMPARISON: None. CLINICAL INDICATION: Female, 69 years old with history of fall, pain TECHNIQUE: XR pelvis AP view views were obtained FINDINGS: No evidence for fracture, dislocation or bony lesion. Total right hip arthroplasty is note d be in place. SI joints appear symmetric. IMPRESSION: No acute fracture or dislocation seen. [facility], , 11/13/2024 1:57 PM
[2024-11-13] MEDS ORDERED: NALOXONE 0.4 MG/ML 1 ML VIAL IV PRN (14:20)
[2024-11-13] MEDS: SUCRALFATE 1 GM TAB PO SCH (17:10)
[2024-11-13 17:13] LABS: Appearance,Urine Clear (Clear); Bilirubin,Urine Negative (Negative); Blood,Urine Moderate (Negative); Color,Urine Light Yellow; Glucose,Urine (UA) Negative (Negative); Ketones,Urine Negative (Negative); Leukocyte Esterase,Urine Negative (Negative); Nitrite,Urine Negative (Negative); PH, Urine 6.5 (5.0-8.0); Protein,Urine Trace (Negative); RBC,Urine 1 /hpf (0-5); Urobilinogen,Urine <2.0 mg/dL (<2.0); WBC,Urine 1 /hpf (0-5)
[2024-11-13 17:24] LABS: Amphetamine Screen,Urine Not Detected (NotDetected); Barbiturate Screen,Urine Not Detected (NotDetected); Benzodiazepines Screen,Urine Not Detected (NotDetected); Cocaine Screen,Urine Not Detected (NotDetected); Methadone Screen, Urine Not Detected (NotDetected); Opiate Screen,Urine Detected (NotDetected); Oxycodone Screen, Urine Not Detected (NotDetected); Phencyclidine Screen,Urine Not Detected (NotDetected); Tricyclic Antidepressant,Urine Detected (NotDetected); Urn Cannabinoid Scrn Not Detected (NotDetected)
[2024-11-13] MEDS: ACETAMINOPHEN TAB 325 MG TAB PO PRN (20:16)
[2024-11-13] MEDS: clonazePAM 0.5 MG TAB PO SCH (21:15)
[2024-11-13] MEDS: MELATONIN 3 MG TABLET PO SCH (21:15)
[2024-11-13] MEDS: GABAPENTIN 400 MG CAP PO SCH (21:15)
[2024-11-13] MEDS: APIXABAN 2.5 MG TABLET PO SCH (21:16)
[2024-11-13] MEDS: traZODone HCL 100 MG TAB PO SCH (21:17)
[2024-11-13] MEDS: PERPHENAZINE 4 MG TAB PO SCH (21:19)
[2024-11-13] MEDS: QUEtiapine 400 MG TAB PO SCH (22:33)
[2024-11-14] MEDS: LEVOTHYROXINE 75 MCG TAB PO SCH (06:59)
[2024-11-14] MEDS: GABAPENTIN 400 MG CAP PO SCH (08:49)
[2024-11-14] MEDS: ASPIRIN 81 MG PO SCH (08:49)
[2024-11-14] MEDS: VITAMIN E (DL,TOCOPHERYL ACET) 400 UNIT (180 MG) CAP PO SCH (08:49)
[2024-11-14] MEDS: ATORVASTATIN 10 MG TAB PO SCH (08:49)
[2024-11-14] MEDS: SENNOSIDES-DOCUSATE SODIUM 1 EACH TAB PO SCH (08:50)
[2024-11-14] MEDS: PANTOPRAZOLE 40 MG TABLET PO SCH (08:56)
[2024-11-14] MEDS ORDERED: NON FORMULARY DRUG (Fish Oil/Dha/Epa [Fish Oil 1,200 Mg Fish Oil] 1 EACH Capsule) PO SCH (09:00)
[2024-11-14 10:01] LABS: Basophils # (A) 0.02 X 10*3/uL (0.00-0.10); Basophils % (A) 0.4 %; Eosinophils # (A) 0.18 X 10*3/uL (0.04-0.35); Eosinophils % (A) 3.6 %; HCT 28.9 % (37.2-46.3); HGB 9.3 g/dL (12.0-15.0); Lymphocytes # (A) 1.27 X 10*3/uL (0.90-5.00); Lymphocytes % (A) 25.6 %; MCH 29.6 pg (27.0-32.0); MCHC 32.2 g/dL (32.0-37.0); Mean Platelet Volume 11.4 FL (9.5-12.2); Monocytes # (A) 0.64 X 10*3/uL (0.20-1.00); Monocytes % (A) 12.9 %; NRBC Per 100 WBC 0 X 10*3/uL (0.00-0.01); Neutrophils # (A) 2.85 X 10*3/uL (1.80-7.70); Neutrophils % (A) 57.3 %; Platelet Count 150 X 10*3/uL (140-440); RBC 3.14 X 10*6/uL (4.10-5.20); RDW 12.9 % (11.5-14.5); WBC 4.97 X 10*3/uL (4.50-10.00)
[2024-11-14 11:11] LABS: ALT 36 U/L (8-44); AST 86 U/L (13-35); Albumin 3.1 g/dL (3.8-4.9); Albumin/Globulin Ratio 1.48 Ratio (1.60-3.17); Alkaline Phosphatase 73 U/L (41-126); Blood Urea Nitrogen 19.6 mg/dL (9.0-27.0); Calcium 8.4 mg/dL (8.7-10.3); Chloride 103 mmol/L (96-109); Globulin 2.1 g/dL (1.6-3.3); Glucose 107 mg/dL (70-110); Potassium 3.6 mmol/L (3.5-5.5); Sodium 139 mmol/L (135-145); Total Bilirubin 0.5 mg/dL (0.3-1.2); Total Protein 5.2 g/dL (6.2-8.2)
--- NOTE | 2024-11-14 12:22 | P.HPIM ---
History of Present Illness H&P Date: 11/14/24 Ofelia Richardson, is a 69-year-old female who presented to [facility] emergency room with a chief complaint of generalized weakness and mental status changes, patient was recently admitted to [facility], and underwent right total hip arthroplasty with Dr. Gonsalez, during that admission patient had episodes of agitation, confusion and screaming, she was seen by psychiatry, her medications were adjusted and she was discharged home. Patient has a history of psychiatry illness, not clearly identified, she was seen in this hospital by psychiatry twice, she used to follow at [facility], clear diagnosis patient denies history of bipolar disorder and history of schizophrenia, she is maintained on multiple psychiatric medications including Seroquel, trazodone, and Klonopin. She was evaluated in the emergency room vital examination on presentation revealed a temperature of 98 pulse 101 respiration 16 blood pressure 121/79 pulse ox 90% on room air Laboratory data revealed a white blood count of 6.17 hemoglobin 10.1 platelet count 130 sodium 136 potassium 3.9 chloride 102 CO2 25 BUN 21 creatinine 0.95 troponin level was elevated at 0.077 Testing in the emergency room revealed EKG done in the emergency room revealed sinus tachycardia otherwise no abnormality, chest x-ray done in the emergency room revealed no evidence for acute pulmonary disease, CT scan of the brain revealed no acute intracranial process Patient was admitted to medical floor for further evaluation and treatment Past Medical History Past Medical History: No Reported History Additional Past Medical History / Comment(s): neuropathy, chronic pain in lower back, DDD, left radius/ulnar fracture from fall, insomnia, stage 3 chronic k idney disease History of Any Multi-Drug Resistant Organisms: None Reported Past Surgical History: No Surgical Hx Reported Additional Past Surgical History / Comment(s): negative heart cath 2020 Additional Past Anesthesia/Blood Transfusion Reaction / Comment(s): na Past Psychological History: Unable to Obtain Smoking Status: Unknown if ever smoked Past Alcohol Use History: None Reported Past Drug Use History: None Reported - Past Family History Mother Family Medical History: COPD Father Additional Family Medical History / Comment(s): CAD, - unknown cause to patient Medications and Allergies Home Medications Medication Instructions Recorded Confirmed Type Gabapentin [Neurontin] 400 mg PO DAILY 09/13/20 11/13/24 History Pantoprazole Sodium 40 mg PO DAILY 09/13/20 11/13/24 History Rosuvastatin Calcium 5 mg PO DAILY 09/13/20 11/13/24 History Sucralfate [Carafate] 1 gm PO ACHS 09/13/20 11/13/24 History clonazePAM 0.5 mg PO HS 09/13/20 11/13/24 History traZODone HCL 300 mg PO HS 09/13/20 11/13/24 History Perphenazine 8mg 8 mg PO BID 10/17/23 11/13/24 History Aspirin 81 mg PO DAILY #30 tab 10/19/23 11/13/24 Rx Fish Oil/Dha/Epa [Fish Oil 1,200 1 cap PO DAILY 11/09/24 11/13/24 History mg Fish Oil] Gabapentin [Neurontin] 800 mg PO HS 11/09/24 11/13/24 History Melatonin 3 mg PO HS 11/09/24 11/13/24 History Vitamin E (Dl,Tocopheryl Acet) 400 unit PO DAILY 11/09/24 11/13/24 History [Vitamin E (400 Iu = 180 mg)] Apixaban [Eliquis] 2.5 mg PO BID #60 tab 11/12/24 11/13/24 Rx HYDROcodone/APAP 7.5-325MG [[place] 1 tab PO Q6HR PRN #28 tab 11/12/24 11/13/24 Rx 7.5-325] Levothyroxine Sodium [Synthroid] 75 mcg PO DAILY 11/13/24 11/13/24 History QUEtiapine [SEROquel] 400 mg PO HS 11/13/24 11/13/24 History Sennosides/Docusate Sodium [[place] 1 cap PO DAILY 11/13/24 11/13/24 History Plus 8.6-50 mg Softgel] Allergies Allergy/AdvReac Type Severity Reaction Status Date / Time codeine AdvReac Nausea & Verified 11/13/24 14:10 [From Tylenol-Codeine #3] Vomiting Physical Exam Vitals: Vital Signs Temp Pulse Pulse Resp BP BP Pulse Ox 11/14/24 08:09 98.5 F 104 H 19 133/83 94 L 11/14/24 06:45 98.2 F 98 15 135/76 95 11/14/24 00:16 98.7 F 103 H 17 111/64 92 L 11/13/24 20:18 110 H 18 132/68 93 L 11/13/24 15:31 88 16 107/70 98 11/13/24 14:32 96 16 113/71 96 11/13/24 12:00 98 F 101 H 16 121/79 90 L Intake and Output 11/13/24 11/14/24 11/14/24 22:59 06:59 14:59 Other: Voiding Method External Catheter Weight 90.718 kg In general patient is alert and oriented x 3 in no distress HEENT head normocephalic and atraumatic Neck is supple no JVD no goiter no lymphadenopathy no carotid bruit Chest examination is clear to auscultation no crackles no wheezing Cardiac exam reveals regular heart sounds S1 and S2 no gallops no murmurs Abdomen is soft nontender no organomegaly with normal bowel sounds Extremity exam reveals no edema no cyanosis or clubbing Neurological examination reveals no gross focal deficits Results CBC & Chem 7: 11/14/24 06:35 11/14/24 06:35 Labs: Abnormal Lab Results - Last 24 Hours (Table) 11/13/24 11/13/24 11/13/24 Range/Units 12:30 12:30 12:30 RBC 3.31 L (4.10-5.20) 10*6/uL Hgb 10.1 L D (12.0-15.0) g/dL Hct 30.0 L (37.2-46.3) % Plt Count 130 L (140-440) 10*3/uL Lymphocytes # 0.71 L (0.90-5.00) 10*3/uL APTT 30.6 H (22.0-30.0) sec Sodium 136 L (137-145) mmol/L BUN 21 H (7-17) mg/dL Glucose 141 H (74-99) mg/dL POC Glucose (mg/dL) (70-110) mg/dL Calcium (8.7-10.3) mg/dL AST 50 H (14-36) U/L Troponin I (0.000-0.034) ng/mL Total Protein 5.9 L (6.3-8.2) g/dL Albumin 3.3 L (3.5-5.0) g/dL Albumin/Globulin Ratio (1.60-3.17) Ratio Urine Protein (Negative) Urine Blood (Negative) Urine Opiates Screen (NotDetected) U Tricyclic Antidepress (NotDetected) 11/13/24 11/13/24 11/13/24 Range/Units 12:30 12:36 13:18 RBC (4.10-5.20) 10*6/uL Hgb (12.0-15.0) g/dL Hct (37.2-46.3) % Plt Count (140-440) 10*3/uL Lymphocytes # (0.90-5.00) 10*3/uL APTT (22.0-30.0) sec Sodium (137-145) mmol/L BUN (7-17) mg/dL Glucose (74-99) mg/dL POC Glucose (mg/dL) 131 H (70-110) mg/dL Calcium (8.7-10.3) mg/dL AST (14-36) U/L Troponin I 0.077 H* (0.000-0.034) ng/mL Total Protein (6.3-8.2) g/dL Albumin (3.5-5.0) g/dL Albumin/Globulin Ratio (1.60-3.17) Ratio Urine Protein Trace H (Negative) Urine Blood Moderate H (Negative) Urine Opiates Screen Detected H (NotDetected) U Tricyclic Antidepress Detected H (NotDetected) 11/13/24 11/13/24 11/14/24 Range/Units 15:43 18:50 06:35 RBC 3.14 L (4.10-5.20) 10*6/uL Hgb 9.3 L (12.0-15.0) g/dL Hct 28.9 L (37.2-46.3) % Plt Count (140-440) 10*3/uL Lymphocytes # (0.90-5.00) 10*3/uL APTT (22.0-30.0) sec Sodium (137-145) mmol/L BUN (7-17) mg/dL Glucose (74-99) mg/dL POC Glucose (mg/dL) (70-110) mg/dL Calcium (8.7-10.3) mg/dL AST (14-36) U/L Troponin I 0.067 H* 0.049 H* (0.000-0.034) ng/mL Total Protein (6.3-8.2) g/dL Albumin (3.5-5.0) g/dL Albumin/Globulin Ratio (1.60-3.17) Ratio Urine Protein (Negative) Urine Blood (Negative) Urine Opiates Screen (NotDetected) U Tricyclic Antidepress (NotDetected) 11/14/24 Range/Units 06:35 RBC (4.10-5.20) 10*6/uL Hgb (12.0-15.0) g/dL Hct (37.2-46.3) % Plt Count (140-440) 10*3/uL Lymphocytes # (0.90-5.00) 10*3/uL APTT (22.0-30.0) sec Sodium (137-145) mmol/L BUN (7-17) mg/dL Glucose (74-99) mg/dL POC Glucose (mg/dL) (70-110) mg/dL Calcium 8.4 L (8.7-10.3) mg/dL AST 86 H (14-36) U/L Troponin I (0.000-0.034) ng/mL Total Protein 5.2 L (6.3-8.2) g/dL Albumin 3.1 L (3.5-5.0) g/dL Albumin/Globulin Ratio 1.48 L (1.60-3.17) Ratio Urine Protein (Negative) Urine Blood (Negative) Urine Opiates Screen (NotDetected) U Tricyclic Antidepress (NotDetected) Assessment and Plan Plan: Generalized weakness Acute mental status changes Possible reaction to hydrocodone Underlying history of osteoarthritis with recent right total hip arthroplasty Underlying history of hypothyroidism Underlying history of hyperlipidemia Underlying history of psychiatric illness, patient used to follow at [facility] in the past This time patient was seen and examined Home medications reviewed and reordered Physical therapy Occupational Therapy were consulted Patient may need to go to a detention for rehab after the acute admission For DVT prophylaxis patient is maintained on Eliquis will continue Cardiology consultation was requested due to elevated troponin level Orthopedic surgery consultation was requested due to recent right hip arthrop lasty Will follow closely
--- NOTE | 2024-11-15 08:23 | P.PN ---
Subjective Progress Note Date: 11/15/24 Ofelia Richardson, is a 69-year-old female who presented to [facility] emergency room with a chief complaint of generalized weakness and mental status changes, patient was recently admitted to [facility], and underwent right total hip arthroplasty with Dr. Gonsalez, during that admission patient had episodes of agitation, confusion and screaming, she was seen by psychiatry, her medications were adjusted and she was discharged home. Patient has a history of psychiatry illness, not clearly identified, she was seen in this hospital by psychiatry twice, she used to follow at [facility], clear diagnosis patient denies history of bipolar disorder and history of schizophrenia, she is maintained on multiple psychiatric medications including Seroquel, trazodone, and Klonopin. She was evaluated in the emergency room vital examination on presentation revealed a temperature of 98 pulse 101 respiration 16 blood pressure 121/79 pulse ox 90% on room air Laboratory data revealed a white blood count of 6.17 hemoglobin 10.1 platelet count 130 sodium 136 potassium 3.9 chloride 102 CO2 25 BUN 21 creatinine 0.95 troponin level was elevated at 0.077 Testing in the emergency room revealed EKG done in the emergency room revealed sinus tachycardia otherwise no abnormality, chest x-ray done in the emergency room revealed no evidence for acute pulmonary disease, CT scan of the brain revealed no acute intracranial process Patient was admitted to medical floor for further evaluation and treatment On 11/15/2024 patient is resting comfortably in bed. Patient had some agitation last night awaiting cardiology and orthopedic input. Social work services also consulted for discharge planning. Patient had low-grade temp last night blood culture ordered. Chest x-ray done in ER showing no evidence for acute pulmonary disease. UA also negative for infection. Current vital signs temp 97.9, heart rate 95, respiratory rate 16, blood pressure 138/74 with pulse ox of 96% on room air Objective - Vital Signs Vital signs: Vital Signs Temp 97.9 F 11/15/24 07:00 Pulse 95 11/15/24 07:00 Resp 16 11/15/24 07:00 BP 138/74 11/15/24 07:00 Pulse Ox 93 L 11/15/24 07:00 FiO2 Intake & Output 11/14/24 11/15/24 11/15/24 18:59 06:59 18:59 Weight 90.718 kg Other: Voiding Method External Catheter # Voids 1 5 # Bowel Movements 1 1 - Exam In general patient is alert and oriented x 3 in no distress HEENT head normocephalic and atraumatic Neck is supple no JVD no goiter no lymphadenopathy no carotid bruit Chest examination is clear to auscultation no crackles no wheezing Cardiac exam reveals regular heart sounds S1 and S2 no gallops no murmurs Abdomen is soft nontender no organomegaly with normal bowel sounds Extremity exam reveals no edema no cyanosis or clubbing Neurological examination reveals no gross focal deficits - Labs CBC & Chem 7: 11/14/24 06:35 11/14/24 06:35 Labs: Abnormal Lab Results - Last 24 Hours (Table) 11/14/24 11/14/24 Range/Units 06:35 06:35 RBC 3.14 L (4.10-5.20) X 10*6/uL Hgb 9.3 L (12.0-15.0) g/dL Hct 28.9 L (37.2-46.3) % Calcium 8.4 L (8.7-10.3) mg/dL AST 86 H (13-35) U/L Total Protein 5.2 L (6.2-8.2) g/dL Albumin 3.1 L (3.8-4.9) g/dL Albumin/Globulin Ratio 1.48 L (1.60-3.17) Ratio Assessment and Plan Plan: Generalized weakness Acute mental status changes Low-grade temp. Blood culture ordered chest x-ray and UA negative Possible reaction to hydrocodone Underlying history of osteoarthritis with recent right total hip arthroplasty Underlying history of hypothyroidism Underlying history of hyperlipidemia Underlying history of psychiatric illness, patient used to follow at [facility] in the past This time patient was seen and examined Home medications reviewed and reordered Physical therapy Occupational Therapy were consulted Patient may need to go to a group home for rehab after the acute admission For DVT prophylaxis patient is maintained on Eliquis will continue Cardiology consultation was requested due to elevated troponin level Orthopedic surgery consultation was requested due to recent right hip arthroplasty Will follow closely
[2024-11-15 10:07] LABS: Basophils # (A) 0.03 X 10*3/uL (0.00-0.10); Basophils % (A) 0.6 %; Eosinophils # (A) 0.21 X 10*3/uL (0.04-0.35); Eosinophils % (A) 4.1 %; HCT 29.7 % (37.2-46.3); HGB 9.2 g/dL (12.0-15.0); Lymphocytes # (A) 1.69 X 10*3/uL (0.90-5.00); Lymphocytes % (A) 33.1 %; MCH 29.3 pg (27.0-32.0); MCV 94.6 FL (80.0-97.0); Mean Platelet Volume 10.9 FL (9.5-12.2); Monocytes # (A) 0.67 X 10*3/uL (0.20-1.00); Monocytes % (A) 13.1 %; NRBC Per 100 WBC 0 X 10*3/uL (0.00-0.01); Neutrophils # (A) 2.49 X 10*3/uL (1.80-7.70); Neutrophils % (A) 48.7 %; Platelet Count 175 X 10*3/uL (140-440); RBC 3.14 X 10*6/uL (4.10-5.20); RDW 12.9 % (11.5-14.5); WBC 5.11 X 10*3/uL (4.50-10.00)
--- NOTE | 2024-11-15 11:03 | P.CRDCN ---
History of Present Illness Consult date: 11/15/24 Reason for Consult (text): Elevated troponin History of present illness: This is 69-year-old female previously seen by Dr. Schrader in the office many years ago in 2020 following cardiac catheterization that revealed normal coronaries. She also has a past medical history of hyperlipidemia, bipolar disorder and schizophrenia, recent right total hip arthroplasty performed on 11/10. Patient presented to the hospital due to generalized weakness and mental status changes. Patient is awake and alert oriented this morning and she states that she had told her doctor that she could not take strong pain medications and she was placed on [place]. She states that she does not follow with a bacteriology technician and denies chest pain, chest pressure, chest tightness. No shortness of breath. No palpitations. Blood pressure 138/74, heart rate 95, pulse ox 93% on room air. -EKG: Sinus tachycardia 100 bpm, no acute ST-T wave changes. -Chest x-ray: No acute process. -CT brain: No acute process. -Laboratory studies: WBC 5.1, hemoglobin 9.2, creatinine 1.0. Troponins 0.077, 0.067, 0.049. Urine drug screen positive for opiates and tricyclic antidepre ssants. -Home cardiac medications: Eliquis 2.5 mg twice daily for 1 month for DVT prophylaxis, rosuvastatin 5 mg daily. -Echocardiogram performed 2019 revealed normal EF, mild AR, mild MR, mild TR Review Of Systems: At the time of my exam: CONSTITUTIONAL: Denies fever or chills. HEENT: Denies blurred vision, vision changes, or eye pain. Denies hemoptysis CARDIOVASCULAR: Denies chest pain. Denies orthopnea. Denies PND. Denies palpitations RESPIRATORY: Denies shortness of breath. GASTROINTESTINAL: Denies abdominal pain. Denies nausea or vomiting. HEMATOLOGIC: Denies bleeding disorders. GENITOURINARY: Denies any blood in urine. SKIN: Denies puritis. Denies rash. Physical examination: Gen: This is 69-year-old female in no acute distress VS: reviewed HEENT: Head is atraumatic, normocephalic. Pupils equal, round. Sclerae is anicteric. NECK: Supple. No JVD. LUNGS: Clear to auscultation. No wheezes or rhonchi. No intercostal retractions. HEART: Regular rate and rhythm. No murmur. ABDOMEN: Soft No tenderness. EXTREMITIES: No pedal edema. No calf tenderness. NEUROLOGICAL: Patient is awake, alert and oriented x3. Assessment: Elevated troponins, flat pattern, type II OK. Patient has no active symptoms of chest pain. She has history of normal coronary arteries on cardiac kaylin terization in 2020 Mental status changes possibly due to pain medications Recent right total hip arthroplasty Hyperlipidemia Bipolar disorder Schizophrenia Plan: Resume patient's home cardiac medications No further cardiac workup at this time. If patient remains here by tomorrow, we will order an echocardiogram, but otherwise patient is cleared for discharge and may follow-up in the office for echocardiogram and stress testing with Dr. Carlos Francisco. Thank you kindly for this consultation. Nurse practitioner note has been reviewed, I agree with documented findings and plan of care. Patient was seen and examined. Past Medical History Past Medical History: No Reported History Additional Past Medical History / Comment(s): neuropathy, chronic pain in lower back, DDD, left radius/ulnar fracture from fall, insomnia, stage 3 chronic kidney disease History of Any Multi-Drug Resistant Organisms: None Reported Past Surgical History: No Surgical Hx Reported Additional Past Surgical History / Comment(s): negative heart cath 2020 Additional Past Anesthesia/Blood Transfusion Reaction / Comment(s): na Past Psychological History: Unable to Obtain Smoking Status: Unknown if ever smoked Past Alcohol Use History: None Reported Past Drug Use History: None Reported - Past Family History Mother Family Medical History: COPD Father Additional Family Medical History / Comment(s): CAD, - unknown cause to patient Medications and Allergies Home Medications Medication Instructions Recorded Confirmed Type Gabapentin [Neurontin] 400 mg PO DAILY 09/13/20 11/13/24 History Pantoprazole Sodium 40 mg PO DAILY 09/13/20 11/13/24 History Rosuvastatin Calcium 5 mg PO DAILY 09/13/20 11/13/24 History Sucralfate [Carafate] 1 gm PO ACHS 09/13/20 11/13/24 History clonazePAM 0.5 mg PO HS 09/13/20 11/13/24 History traZODone HCL 300 mg PO HS 09/13/20 11/13/24 History Perphenazine 8mg 8 mg PO BID 10/17/23 11/13/24 History Aspirin 81 mg PO DAILY #30 tab 04/06/24 05/02/25 Rx Fish Oil/Dha/Epa [Fish Oil 1,200 1 cap PO DAILY 11/09/24 11/13/24 History mg Fish Oil] Gabapentin [Neurontin] 800 mg PO HS 11/09/24 11/13/24 History Melatonin 3 mg PO HS 11/09/24 11/13/24 History Vitamin E (Dl,Tocopheryl Acet) 400 unit PO DAILY 11/09/24 11/13/24 History [Vitamin E (400 Iu = 180 mg)] Apixaban [Eliquis] 2.5 mg PO BID #60 tab 11/12/24 11/13/24 Rx HYDROcodone/APAP 7.5-325MG [[place] 1 tab PO Q6HR PRN #28 tab 11/12/24 11/13/24 Rx 7.5-325] Levothyroxine Sodium [Synthroid] 75 mcg PO DAILY 11/13/24 11/13/24 History QUEtiapine [SEROquel] 400 mg PO HS 11/13/24 11/13/24 History Sennosides/Docusate Sodium [Senna 1 cap PO DAILY 11/13/24 11/13/24 History Plus 8.6-50 mg Softgel] Allergies Allergy/AdvReac Type Severity Reaction Status Date / Time codeine AdvReac Nausea & Verified 11/13/24 14:10 [From Tylenol-Codeine #3] Vomiting Physical Exam Vitals: Vital Signs Temp Pulse Resp BP BP Pulse Ox 11/15/24 07:00 97.9 F 95 16 138/74 93 L 11/15/24 00:45 97.6 F 110 H 20 142/81 96 11/14/24 18:50 98.7 F 101 H 20 142/88 96 11/14/24 18:37 98.1 F 11/14/24 14:45 99.5 F 104 H 17 122/76 94 L Intake and Output 11/14/24 11/15/24 11/15/24 22:59 06:59 14:59 Other: # Voids 1 5 # Bowel Movements 1 Results 11/15/24 05:41 11/14/24 06:35 Cardiac Enzymes 11/14/24 Range/Units 06:35 AST 86 H (13-35) U/L CBC 11/14/24 Range/Units 06:35 WBC 4.97 (4.50-10.00) X 10*3/uL RBC 3.14 L (4.10-5.20) X 10*6/uL Hgb 9.3 L (12.0-15.0) g/dL Hct 28.9 L (37.2-46.3) % Plt Count 150 (140-440) X 10*3/uL Comprehensive Metabolic Panel 11/14/24 Range/Units 06:35 Sodium 139 (135-145) mmol/L Potassium 3.6 (3.5-5.5) mmol/L Chloride 103 (96-109) mmol/L Carbon Dioxide 26.0 (21.6-31.8) mmol/L BUN 19.6 (9.0-27.0) mg/dL Creatinine 1.0 (0.6-1.5) mg/dL Glucose 107 (70-110) mg/dL Calcium 8.4 L (8.7-10.3) mg/dL AST 86 H (13-35) U/L ALT 36 (8-44) U/L Alkaline Phosphatase 73 (41-126) U/L Total Protein 5.2 L (6.2-8.2) g/dL Albumin 3.1 L (3.8-4.9) g/dL Current Medications Generic Name Dose Route Start Last Admin Trade Name Freq PRN Reason Stop Dose Admin Acetaminophen 650 mg 11/13/24 19:21 11/14/24 21:11 Acetaminophen Tab 325 Mg Tab PO 650 mg Q8H PRN Administration Fever and/ or Pain Apixaban 2.5 mg 11/13/24 21:00 11/14/24 21:10 Apixaban 2.5 Mg Tablet PO 2.5 mg BID ESTELA Administration Protocol Aspirin 81 mg 11/14/24 09:00 11/14/24 08:49 Aspirin 81 Mg PO 81 mg DAILY ESTELA Administration Atorvastatin Calcium 10 mg 11/14/24 09:00 11/14/24 08:49 Atorvastatin 10 Mg Tab PO 10 mg DAILY ESTELA Administration Clonazepam 0.5 mg 11/13/24 21:00 11/14/24 21:10 Clonazepam 0.5 Mg Tab PO 0.5 mg HS ESTELA Administration Gabapentin 800 mg 11/13/24 21:00 11/14/24 21:10 Gabapentin 400 Mg Cap PO 800 mg HS ESTELA Administration Gabapentin 400 mg 11/14/24 09:00 11/14/24 08:49 Gabapentin 400 Mg Cap PO 400 mg DAILY ESTELA Administration Levothyroxine Sodium 75 mcg 11/14/24 06:30 11/15/24 07:11 Levothyroxine 75 Mcg Tab PO 75 mcg 0630 ESTELA Administration Melatonin 3 mg 11/13/24 21:00 11/14/24 21:10 Melatonin 3 Mg Tablet PO 3 mg HS ESTELA Administration Naloxone HCl 0.2 mg 11/13/24 14:20 Naloxone 0.4 Mg/Ml 1 Ml Vial IV Q2M PRN Opioid Reversal Pantoprazole Sodium 40 mg 11/14/24 09:00 11/14/24 08:56 Pantoprazole 40 Mg Tablet PO 40 mg DAILY ESTELA Administration Perphenazine 8 mg 11/13/24 21:00 11/14/24 21:09 Perphenazine 4 Mg Tab PO Not Given BID ESTELA Quetiapine Fumarate 400 mg 11/13/24 21:00 11/14/24 21:10 Quetiapine 400 Mg Tab PO 400 mg HS ESTELA Administration Senna/Docusate Sodium 1 each 11/14/24 09:00 11/14/24 08:50 Sennosides-Docusate Sodium 1 Each Tab PO 1 each DAILY ESTELA Administration Sucralfate 1 gm 11/13/24 17:30 11/14/24 21:10 Sucralfate 1 Gm Tab PO 1 gm ACHS ESTELA Administration Trazodone HCl 300 mg 11/13/24 21:00 11/14/24 21:10 Trazodone Hcl 100 Mg Tab PO 300 mg HS ESTELA Administration Vitamin E 400 unit 11/14/24 09:00 11/14/24 08:49 Vitamin E (Dl,Tocopheryl Acet) 400 Unit (180 Mg) Cap PO 400 unit DAILY ESTELA Administration Intake and Output 11/14/24 11/15/24 11/15/24 22:59 06:59 14:59 Other: # Voids 1 5 # Bowel Movements 1 11/14/24 06:35 11/14/24 06:35
[2024-11-15 11:04] LABS: ALT 39 U/L (8-44); AST 66 U/L (13-35); Albumin 3.2 g/dL (3.8-4.9); Albumin/Globulin Ratio 1.78 Ratio (1.60-3.17); Alkaline Phosphatase 73 U/L (41-126); Blood Urea Nitrogen 16.7 mg/dL (9.0-27.0); Calcium 8.5 mg/dL (8.7-10.3); Carbon Dioxide 24.5 mmol/L (21.6-31.8); Chloride 105 mmol/L (96-109); Globulin 1.8 g/dL (1.6-3.3); Glucose 100 mg/dL (70-110); Potassium 3.5 mmol/L (3.5-5.5); Sodium 144 mmol/L (135-145); Total Bilirubin 0.5 mg/dL (0.3-1.2)
[2024-11-15 19:56] LABS: Influenza A Not Detected (Not Detectd)
[2024-11-15 19:57] LABS: Influenza B Not Detected (Not Detectd); RSV Not Detected (Not Detectd)
--- NOTE | 2024-11-15 20:17 | P.PN ---
Progress Note - Text Progress Note Date: 11/15/24 Patient had RTHA performed by Dr. Gonsalez on Saturday11/10/2024. Patient was discharged home on 11/12/2024. Patient re-presented to hospital yesterday due to altered mental status and weakness. Pelvis x-ray negative for any fracture. RTHA components stable. Full consult pending
--- NOTE | 2024-11-15 23:05 | P.CONS ---
History of Present Illness - Reason for Consult Consult date: 11/15/24 Fever Requesting physician: Sanjay Canales - Chief Complaint Weakness and fall x 1 day on admission - History of Present Illness Patient is a 69-year-old female with a past medical history significant for chronic back pain degenerative disc disease stage III kidney disease in this patient who is status post right total hip arthroplasty by Dr. Turpin on 11/10/2024 and the patient was discharged home on 11/12/2024 patient presenting back to the hospital on 11/13/2024 concerning for weakness and mental status changes patient apparently was complaining of more drowsiness with the [place] and the patient did fell out of her chair and was having difficulty getting up for the patient has been brought to the hospital on presentation to the hospital patient was afebrile she did have low-grade fever of 99 F not significantly tachycardic hypotensive or hypoxic no need for supplemental oxygen patient did have a white count of 5.11 no left shift BUN was mildly elevated on admission subsequent normalized liver enzymes are normal urine has been negative urine drug screen was positive for opiates tricyclic's patient did have a chest x-ray that was negative for acute cardiopulmonary disease infectious disease was consulted because of the fever patient currently he denies any rigors or chills denies any headache or URI symptoms no chest pain shortness of breath or cough no abdominal pain or diarrhea or urinary symptoms she did have pain to the right hip area mostly dull aching mild to moderate intensity dressing was changed by the nursing staff mention incision looks clean and there was no drainage pelvic x-ray no acute fracture or dislocation Review of Systems Positive point and negatives has been mentioned in the HPI, complete review of systems was performed and all other systems are negative Past Medical History Past Medical History: No Reported History Additional Past Medical History / Comment(s): neuropathy, chronic pain in lower back, DDD, left radius/ulnar fracture from fall, insomnia, stage 3 chronic kidney disease History of Any Multi-Drug Resistant Organisms: None Reported Past Surgical History: No Surgical Hx Reported Additional Past Surgical History / Comment(s): negative heart cath 2020 Additional Past Anesthesia/Blood Transfusion Reaction / Comm: na Past Psychological History: Unable to Obtain Smoking Status: Unknown if ever smoked Past Alcohol Use History: None Reported Past Drug Use History: None Reported - Past Family History Mother Family Medical History: COPD Father Additional Family Medical History / Comment(s): CAD, - unknown cause to patient Medications and Allergies Home Medications Medication Instructions Recorded Confirmed Type Gabapentin [Neurontin] 400 mg PO DAILY 09/13/20 11/13/24 History Pantoprazole Sodium 40 mg PO DAILY 09/13/20 11/13/24 History Rosuvastatin Calcium 5 mg PO DAILY 09/13/20 11/13/24 History Sucralfate [Carafate] 1 gm PO ACHS 09/13/20 11/13/24 History clonazePAM 0.5 mg PO HS 09/13/20 11/13/24 History traZODone HCL 300 mg PO HS 09/13/20 11/13/24 History Perphenazine 8mg 8 mg PO BID 10/17/23 11/13/24 History Aspirin 81 mg PO DAILY #30 tab 10/19/23 11/13/24 Rx Fish Oil/Dha/Epa [Fish Oil 1,200 1 cap PO DAILY 11/09/24 11/13/24 History mg Fish Oil] Gabapentin [Neurontin] 800 mg PO HS 11/09/24 11/13/24 History Melatonin 3 mg PO HS 11/09/24 11/13/24 History Vitamin E (Dl,Tocopheryl Acet) 400 unit PO DAILY 11/09/24 11/13/24 History [Vitamin E (400 Iu = 180 mg)] Apixaban [Eliquis] 2.5 mg PO BID #60 tab 11/12/24 11/13/24 Rx HYDROcodone/APAP 7.5-325MG [[place] 1 tab PO Q6HR PRN #28 tab 11/12/24 11/13/24 Rx 7.5-325] Levothyroxine Sodium [Synthroid] 75 mcg PO DAILY 11/13/24 11/13/24 History QUEtiapine [SEROquel] 400 mg PO HS 11/13/24 11/13/24 History Sennosides/Docusate Sodium [Senna 1 cap PO DAILY 11/13/24 11/13/24 History Plus 8.6-50 mg Softgel] Allergies Allergy/AdvReac Type Severity Reaction Status Date / Time codeine AdvReac Nausea & Verified 11/13/24 14:10 [From Tylenol-Codeine #3] Vomiting Physical Exam Vitals: Vital Signs Temp Pulse Resp BP BP Pulse Ox 11/15/24 07:00 97.9 F 95 16 138/74 93 L 11/15/24 00:45 97.6 F 110 H 20 142/81 96 11/14/24 18:50 98.7 F 101 H 20 142/88 96 11/14/24 18:37 98.1 F 11/14/24 14:45 99.5 F 104 H 17 122/76 94 L Intake and Output 11/14/24 11/15/24 11/15/24 22:59 06:59 14:59 Other: Voiding Method Toilet Diaper # Voids 1 5 # Bowel Movements 1 GENERAL DESCRIPTION: Elderly female lying in bed, no distress. No tachypnea or accessory muscle of respiration use. HEENT: Shows Pallor , no scleral icterus. Oral mucous membrane is dry. No pharyngeal erythema or thrush NECK: Trachea central, no thyromegaly. LUNGS: Unlabored breathing. Clear to auscultation anteriorly. No wheeze or crackle. HEART: S1, S2, regular rate and rhythm. No loud murmur ABDOMEN: Soft, no tenderness , guarding or rigidity, no organomegaly EXTREMITIES: Right hip incision is currently dressed no drainage nursing staff for change of dressing mention there was no swelling redness or drainage SKIN: No rash, no masses palpable. NEUROLOGICAL: The patient is awake, alert, oriented x3, mood and affect normal. Results CBC & Chem 7: 11/15/24 05:41 11/15/24 05:41 Labs: Abnormal Lab Results - Last 24 Hours (Table) 11/15/24 11/15/24 Range/Units 05:41 05:41 RBC 3.14 L (4.10-5.20) X 10*6/uL Hgb 9.2 L (12.0-15.0) g/dL Hct 29.7 L (37.2-46.3) % MCHC 31.0 L (32.0-37.0) g/dL Anion Gap 14.50 H (4.00-12.00) mmol/L Calcium 8.5 L (8.7-10.3) mg/dL AST 66 H (13-35) U/L Total Protein 5.0 L (6.2-8.2) g/dL Albumin 3.2 L (3.8-4.9) g/dL Assessment and Plan (1) Fever Current Visit: No Status: Acute Code(s): R50.9 - FEVER, UNSPECIFIED SNOMED Code(s): 761379596 Plan: 1patient with a 1 low-grade fever questionably reactive in this patient presented to hospital with weakness and fall recently did have a right hip arthroplasty the incision looks clean patient currently do not have any obvious localizing signs and symptoms and initial workup has been negative including a negative UA chest x-ray has been negative 2-I will check influenza RSV COVID PCR as well as CRP and procalcitonin 3-for now we will monitor closely off antibiotic therapy as the patient does not look toxic and no obvious focus of infection We will follow on clinical condition and cultures to further adjust medication if needed Thank you for this consultation we will follow the patient along with you Dictation was produced using [employer] dictation software. please excuse any grammatical, word or spelling errors. Time with Patient: Greater than 30
[2024-11-16 08:23] LABS: Basophils # (A) 0.02 X 10*3/uL (0.00-0.10); Basophils % (A) 0.4 %; Eosinophils % (A) 3.9 %; HCT 26.3 % (37.2-46.3); HGB 8.2 g/dL (12.0-15.0); Lymphocytes # (A) 1.48 X 10*3/uL (0.90-5.00); MCHC 31.2 g/dL (32.0-37.0); MCV 92.9 FL (80.0-97.0); Mean Platelet Volume 10.8 FL (9.5-12.2); Monocytes # (A) 0.64 X 10*3/uL (0.20-1.00); Monocytes % (A) 12.5 %; NRBC Per 100 WBC 0 X 10*3/uL (0.00-0.01); Neutrophils # (A) 2.73 X 10*3/uL (1.80-7.70); Neutrophils % (A) 53.6 %; Platelet Count 211 X 10*3/uL (140-440); RBC 2.83 X 10*6/uL (4.10-5.20)
[2024-11-16 08:31] LABS: ALT 34 U/L (8-44); AST 45 U/L (13-35); Albumin 3.2 g/dL (3.8-4.9); Albumin/Globulin Ratio 1.68 Ratio (1.60-3.17); Alkaline Phosphatase 68 U/L (41-126); Blood Urea Nitrogen 19.8 mg/dL (9.0-27.0); Calcium 8.4 mg/dL (8.7-10.3); Carbon Dioxide 26.5 mmol/L (21.6-31.8); Chloride 106 mmol/L (96-109); Globulin 1.9 g/dL (1.6-3.3); Glucose 103 mg/dL (70-110); Potassium 3.7 mmol/L (3.5-5.5); Sodium 142 mmol/L (135-145); Total Bilirubin 0.4 mg/dL (0.3-1.2); Total Protein 5.1 g/dL (6.2-8.2)
--- NOTE | 2024-11-16 09:22 | P.CNOR ---
History of Present Illness - [facility] Consult date: 11/16/24 Requesting physician: Sanjay Canales Consult reason: other (Right total hip arthroplasty) History of present illness: Patient is a 69-year-old female who presented to the hospital at [facility] on 11/14/2024 due to altered mental status and weakness. Patient had direct anterior right total hip arthroplasty performed by Dr. Gonsalez on 11/10/2024. Patient was discharged home in stable condition on , 11/12/2024. Patient then represented to the hospital couple days ago due to the weakness and altered mental status. Orthopedics was consulted by medicine due to recent hip replacement. Patient was seen at bedside this morning on 6 N. lying in the semirecumbent position with no complaints. She says she does note significant improvement in regards to the right hip. She says she has been up walking around the room and to the bathroom under her own power. Patient says she is hoping to go home later today. Patient is unsure whether she has worked with PT/OT yet. Patient does note some pain in the right thigh when trying to lift the right leg out of bed. Patient denies any issues with incisions. Patient says she has been urinating without any issue. Says she has had bowel movement since surgery. Psychiatry cardiology and medicine have been following closely. X-ray of the pelvis negative for any fractures. Components in the right hip appear to be stable. Past Medical History Past Medical History: No Reported History Additional Past Medical History / Comment(s): neuropathy, chronic pain in lower back, DDD, left radius/ulnar fracture from fall, insomnia, stage 3 chronic ki dney disease History of Any Multi-Drug Resistant Organisms: None Reported Past Surgical History: No Surgical Hx Reported Additional Past Surgical History / Comment(s): negative heart cath 2020 Additional Past Anesthesia/Blood Transfusion Reaction / Comm: na Past Psychological History: Unable to Obtain Smoking Status: Unknown if ever smoked Past Alcohol Use History: None Reported Past Drug Use History: None Reported - Past Family History Mother Family Medical History: COPD Father Additional Family Medical History / Comment(s): CAD, - unknown cause to patient Medications and Allergies Home Medications Medication Instructions Recorded Confirmed Type Gabapentin [Neurontin] 400 mg PO DAILY 09/13/20 11/13/24 History Pantoprazole Sodium 40 mg PO DAILY 09/13/20 11/13/24 History Rosuvastatin Calcium 5 mg PO DAILY 09/13/20 11/13/24 History Sucralfate [Carafate] 1 gm PO ACHS 09/13/20 11/13/24 History clonazePAM 0.5 mg PO HS 09/13/20 11/13/24 History traZODone HCL 300 mg PO HS 09/13/20 11/13/24 History Perphenazine 8mg 8 mg PO BID 10/17/23 11/13/24 History Aspirin 81 mg PO DAILY #30 tab 10/19/23 11/13/24 Rx Fish Oil/Dha/Epa [Fish Oil 1,200 1 cap PO DAILY 11/09/24 11/13/24 History mg Fish Oil] Gabapentin [Neurontin] 800 mg PO HS 11/09/24 11/13/24 History Melatonin 3 mg PO HS 11/09/24 11/13/24 History Vitamin E (Dl,Tocopheryl Acet) 400 unit PO DAILY 11/09/24 11/13/24 History [Vitamin E (400 Iu = 180 mg)] Apixaban [Eliquis] 2.5 mg PO BID #60 tab 11/12/24 11/13/24 Rx HYDROcodone/APAP 7.5-325MG [[place] 1 tab PO Q6HR PRN #28 tab 11/12/24 11/13/24 Rx 7.5-325] Levothyroxine Sodium [Synthroid] 75 mcg PO DAILY 11/13/24 11/13/24 History QUEtiapine [SEROquel] 400 mg PO HS 11/13/24 11/13/24 History Sennosides/Docusate Sodium [Senna 1 cap PO DAILY 11/13/24 11/13/24 History Plus 8.6-50 mg Softgel] Allergies Allergy/AdvReac Type Severity Reaction Status Date / Time codeine AdvReac Nausea & Verified 11/13/24 14:10 [From Tylenol-Codeine #3] Vomiting Physical Examination Right hip: Incision is clean, dry, and intact. The exofin fusion tape is in good condition. There is minimal soft tissue swelling and ecchymosis surrounding the medial and lateral aspects of the incision. Calf is soft, no tenderness with palpation. Plantar flexion, dorsiflexion, EHL, FHL are intact. Sensory exam to light touch throughout the extremity is intact, dorsal pedis pulses 2+. Results - Labs Labs: Abnormal Lab Results - Last 24 Hours (Table) 11/15/24 11/15/24 11/16/24 Range/Units 05:41 05:41 04:38 RBC 3.14 L 2.83 L (4.10-5.20) X 10*6/uL Hgb 9.2 L 8.2 L (12.0-15.0) g/dL Hct 29.7 L 26.3 L (37.2-46.3) % MCHC 31.0 L 31.2 L (32.0-37.0) g/dL Anion Gap 14.50 H (4.00-12.00) mmol/L BUN/Creatinine Ratio (12.00-20.00) Ratio Calcium 8.5 L (8.7-10.3) mg/dL AST 66 H (13-35) U/L Total Protein 5.0 L (6.2-8.2) g/dL Albumin 3.2 L (3.8-4.9) g/dL 11/16/24 Range/Units 04:38 RBC (4.10-5.20) X 10*6/uL Hgb (12.0-15.0) g/dL Hct (37.2-46.3) % MCHC (32.0-37.0) g/dL Anion Gap (4.00-12.00) mmol/L BUN/Creatinine Ratio 22.00 H (12.00-20.00) Ratio Calcium 8.4 L (8.7-10.3) mg/dL AST 45 H (13-35) U/L Total Protein 5.1 L (6.2-8.2) g/dL Albumin 3.2 L (3.8-4.9) g/dL Microbiology - Last 24 Hours (Table) 11/14/24 16:34 Blood Culture - Preliminary Blood H & H 11/13/24 11/14/24 11/15/24 Range/Units 12:30 06:35 05:41 Hgb 10.1 L D 9.3 L 9.2 L (12.0-15.0) g/dL Hct 30.0 L 28.9 L 29.7 L (37.2-46.3) % 11/16/24 Range/Units 04:38 Hgb 8.2 L (12.0-15.0) g/dL Hct 26.3 L (37.2-46.3) % Coagulation 11/13/24 Range/Units 12:30 INR 1.0 (<1.2) Result Diagrams: 11/16/24 04:38 11/16/24 04:38 - Diagnostic results Hip x-ray: report reviewed, image reviewed (X-ray of the pelvis demonstrates right total hip arthroplasty components in place. Stable. Negative for any fractures or dislocations.) Assessment and Plan Assessment: 1. History of recent right total hip arthroplasty 2. Altered mental status; weakness Plan: 1. History of recent right total hip arthroplasty -Dr. Gonsalez did perform right total hip arthroplasty on 11/10/2024. Patient stable at bedside this morning. X-ray of the pelvis demonstrates total hip components which are stable in place. Negative for any fractures or dislocations. Patient to work with PT/OT daily. Pain medication as needed. Patient is stable from an orthopedic standpoint for discharge to home versus rehab. Patient to follow-up in office in 1 week for first postop checkup. Weightbearing as tolerated with walker as needed. Perform exercises daily. Patient is stable from orthopedic standpoint for discharge. At this time orthopedics is signing off. Please do not hesitate to contact us for any further questions. 2. Appreciate medical management 3. Pain management -Tylenol; gabapentin 4. DVT prophylaxis -Eliquis; aspirin 5. GI prophylaxis -Protonix; senna 6. PT/OT -weightbearing as tolerated with walker as needed 7. Encourage incentive spirometer use 8. Appreciate consult Time with Patient: Less than 30
--- NOTE | 2024-11-16 10:18 | P.PN ---
Subjective This is 69-year-old female previously seen by Dr. Schrader in the office many years ago in 2020 following cardiac catheterization that revealed normal coronaries. She also has a past medical history of hyperlipidemia, bipolar disorder and schizophrenia, recent right total hip arthroplasty performed on 11/10. Patient presented to the hospital due to generalized weakness and mental status changes. Patient is awake and alert oriented this morning and she states that she had told her doctor that she could not take strong pain medications and she was placed on [place]. She states that she does not follow with a sack cleaning hand and denies chest pain, chest pressure, chest tightness. No shortness of breath. No palpitations. Blood pressure 138/74, heart rate 95, pulse ox 93% on room air. -EKG: Sinus tachycardia 100 bpm, no acute ST-T wave changes. -Chest x-ray: No acute process. -CT brain: No acute process. -Laboratory studies: WBC 5.1, hemoglobin 9.2, creatinine 1.0. Troponins 0.077, 0.067, 0.049. Urine drug screen positive for opiates and tricyclic antidepressants. -Home cardiac medications: Eliquis 2.5 mg twice daily for 1 month for DVT prophylaxis, rosuvastatin 5 mg daily. -Echocardiogram performed 2019 revealed normal EF, mild AR, mild MR, mild TR 11/16/2024 Patient seen and examined resting in bed. She denies chest pain or shortness of breath. Laboratory data reviewed, hemoglobin 8.2, platelets 211, sodium 142, potassium 3.7 and creatinine 0.9. BP well-controlled. Physical examination: Gen: This is 69-year-old female in no acute distress VS: reviewed HEENT: Head is atraumatic, normocephalic. Pupils equal, round. Sclerae is anicteric. NECK: Supple. No JVD. LUNGS: Clear to auscultation. No wheezes or rhonchi. No intercostal retractions. HEART: Regular rate and rhythm. No murmur. ABDOMEN: Soft No tenderness. EXTREMITIES: No pedal edema. No calf tenderness. NEUROLOGICAL: Patient is awake, alert and oriented x3. Assessment: Elevated troponins, flat pattern, type II [place]. Patient has no active symptoms of chest pain. She has history of normal coronary arteries on cardiac catheterization in 2020 Mental status changes possibly due to pain medications Recent right total hip arthroplasty Hyperlipidemia Bipolar disorder Schizophrenia Plan: Echocardiogram ordered, will review. Anemia workup per primary care team. No plans for cardiac catheterization, troponin elevation is flat and likely related to oxygen supply/demand mismatch with anemia. Nurse practitioner note has been reviewed, I agree with documented findings and plan of care. Patient was seen and examined. Objective - Vital Signs Vital signs: Vital Signs Temp 99.0 F 11/16/24 07:00 Pulse 92 11/16/24 07:00 Resp 18 11/16/24 07:00 BP 123/74 11/16/24 07:00 Pulse Ox 94 L 11/16/24 07:00 FiO2 Intake & Output 11/15/24 11/16/24 11/16/24 18:59 06:59 18:59 Intake Total 118 Balance 118 Intake: Oral 118 Other: Voiding Method Toilet Toilet Toilet Diaper Diaper Diaper # Voids 3 4 # Bowel Movements 1 - Labs CBC & Chem 7: 11/16/24 04:38 11/16/24 04:38 Labs: Abnormal Lab Results - Last 24 Hours (Table) 11/15/24 11/16/24 11/16/24 Range/Units 05:41 04:38 04:38 RBC 2.83 L (4.10-5.20) X 10*6/uL Hgb 8.2 L (12.0-15.0) g/dL Hct 26.3 L (37.2-46.3) % MCHC 31.2 L (32.0-37.0) g/dL Anion Gap 14.50 H (4.00-12.00) mmol/L BUN/Creatinine Ratio 22.00 H (12.00-20.00) Ratio Calcium 8.5 L 8.4 L (8.7-10.3) mg/dL AST 66 H 45 H (13-35) U/L Total Protein 5.0 L 5.1 L (6.2-8.2) g/dL Albumin 3.2 L 3.2 L (3.8-4.9) g/dL Microbiology - Last 24 Hours (Table) 11/14/24 16:34 Blood Culture - Preliminary Blood
[2024-11-16 15:00] VITALS: BP 131/79; PULSE 89; RESP 17; TEMP 98.9
--- NOTE | 2024-11-17 07:59 | CA ---
Transthoracic Echo Report Name: Ofelia Richardson Age: 69 Gender: F : 1955 Exam Date: 11/16/2024 11:16 Exam Location: [place] [facility] Ht (in): 67 Wt (lb): 200 Ordering Physician: Laurel Mcdaniel Attending/Referring Phys: [id number], Violeta Pest Control Operator Anya Valle RDCS Procedure CPT: Indications: LVF Cardiac Hx: Technical Quality: Technically difficult study Contrast 1: Definity Total Dose (mL): 3 Contrast 2: Total Dose (mL): MEASUREMENTS (Male / Female) Normal Values 2D ECHO LV Diastolic Diameter PLAX 5.0 cm 4.2 - 5.9 / 3.9 - 5.3 cm LV Systolic Diameter PLAX 2.9 cm IVS Diastolic Thickness 1.0 cm 0.6 - 1.0 / 0.6 - 0.9 cm LVPW Diastolic Thickness 0.6 cm 0.6 - 1.0 / 0.6 - 0.9 cm LV Relative Wall Thickness 0.3 LVOT Diameter 1.9 cm LV Diastolic Volume MOD BP 114.2 cm??? 67 - 155 / 56 - 104 cm??? LV Systolic Volume MOD BP 48.7 cm??? 22 - 58 / 19 - 49 cm??? LV Ejection Fraction MOD BP 57.4 % >= 55 % LV Cardiac Index MOD BP 2778.4 cm???/min???m??? LV Diastolic Volume MOD 4C 118.9 cm??? LV Systolic Volume MOD 4C 52.5 cm??? LV Ejection Fraction MOD 4C 55.8 % LV Cardiac Index MOD 4C 2812.6 cm???/min???m??? LV Diastolic Length 4C 7.9 cm LV Systolic Length 4C 6.8 cm LV Diastolic Volume MOD 2C 106.4 cm??? LV Systolic Volume MOD 2C 42.6 cm??? LV Ejection Fraction MOD 2C 60.0 % LV Cardiac Index MOD 2C 2704.4 cm???/min???m??? LV Diastolic Length 2C 7.7 cm LV Systolic Length 2C 6.4 cm LA Volume 60.5 cm??? 18 - 58 / 22 - 52 cm??? LA Volume Index 28.8 cm???/m??? 16 - 28 cm???/m??? DOPPLER AV Peak Velocity 161.6 cm/s AV Peak Gradient 10.4 mmHg AV Mean Velocity 117.5 cm/s AV Mean Gradient 6.1 mmHg AV Velocity Time Integral 32.7 cm LVOT Peak Velocity 120.9 cm/s LVOT Peak Gradient 5.8 mmHg LVOT Velocity Time Integral 23.8 cm LVOT Stroke Volume 70.6 cm??? LVOT Stroke Volume Index 34.9 ml/m??? LVOT Cardiac Index 2992.8 cm???/min???m??? AV Area Cont Eq vti 2.2 cm??? AV Area Cont Eq pk 2.2 cm??? MV Area PHT 4.4 cm??? Mitral E Point Velocity 61.6 cm/s Mitral A Point Velocity 72.2 cm/s Mitral E to A Ratio 0.9 MV Deceleration Time 170.6 ms TR Peak Velocity 296.9 cm/s TR Peak Gradient 35.3 mmHg Right Atrial Pressure 5.0 mmHg Pulmonary Artery Systolic Pressu 40.3 mmHg Right Ventricular Systolic Press 40.3 mmHg PV Peak Velocity 100.9 cm/s PV Peak Gradient 4.1 mmHg FINDINGS Left Ventricle Left ventricular ejection fraction is estimated at 55-60 %. Mildly increased septal wall thickness. Mildly increased left ventricular diastolic volume. No obvious regional wall motion abnormalities. Right Ventricle Normal right ventricular size and function. Mild pulmonary hypertension. Right Atrium Normal right atrial size. Left Atrium Mildly increased left atrial volume. Mitral Valve Structurally normal mitral valve. No mitral stenosis. No mitral regurgitation. No evidence for mitral valve prolapse. Aortic Valve Trileaflet aortic valve. No aortic stenosis. Trace aortic regurgitation. Aortic valve sclerosis. Tricuspid Valve Structurally normal tricuspid valve. No tricuspid stenosis. Mild tricuspid regurgitation. Pulmonic Valve Pulmonic valve not well visualized. No pulmonic stenosis. No pulmonic regurgitation. Pericardium No pericardial effusion. Aorta Normal size aortic root and proximal ascending aorta. CONCLUSIONS Normal LV size and systolic function. No significant abnormality under Doppler exam. No pericardial effusion mildly elevated PA pressures Previewed by: Dr. Filippo Ngo MD (Electronically Signed) Final Date: 17 Nov 2024 07:58
--- NOTE | 2024-11-17 09:01 | P.DS ---
Providers Date of admission: 11/13/24 14:20 Expected date of discharge: 11/16/24 Attending physician: Sanjay Canales Consults: 11/14/24 12:09 Consult Physician Routine Consulting Provider: Joaquin Gonsalez Consult Reason/Comments: Right total hip arthroplasty Do you want consulting provider notified?: Yes 11/14/24 12:17 Consult Physician Routine Consulting Provider: Andriy Francisco Consult Reason/Comments: Elevated troponin level Do you want consulting provider notified?: Yes 11/15/24 08:43 Consult Physician Routine Consulting Provider: Regi Albert Consult Reason/Comments: fever Do you want consulting provider notified?: Yes Primary care physician: Sanjay Parker [facility] Course: Discharge diagnosis Generalized weakness Acute mental status changes Low-grade temp. Blood culture ordered chest x-ray and UA negative Possible reaction to hydrocodone Underlying history of osteoarthritis with recent right total hip arthroplasty Underlying history of hypothyroidism Underlying history of hyperlipidemia Underlying history of psychiatric illness, patient used to follow at [facility] in the past Hospital course Ofelia Richardson, is a 69-year-old female who presented to [facility] emergency room with a chief complaint of generalized weakness and mental status changes, patient was recently admitted to [facility], and underwent right total hip arthroplasty with Dr. Gonsalez, during that admission patient had episodes of agitation, confusion and screaming, she was seen by psychiatry, her medications were adjusted and she was discharged home. Patient has a history of psychiatry illness, not clearly identified, she was seen in this hospital by psychiatry twice, she used to follow at [facility], clear diagnosis patient denies history of bipolar disorder and history of schizophrenia, she is maintained on multiple psychiatric medications including Seroquel, trazodone, and Klonopin. She was evaluated in the emergency room vital examination on presentation revealed a temperature of 98 pulse 101 respiration 16 blood pressure 121/79 pulse ox 90% on room air Laboratory data revealed a white blood count of 6.17 hemoglobin 10.1 platelet count 130 sodium 136 potassium 3.9 chloride 102 CO2 25 BUN 21 creatinine 0.95 troponin level was elevated at 0.077 Testing in the emergency room revealed EKG done in the emergency room revealed sinus tachycardia otherwise no abnormality, chest x-ray done in the emergency room revealed no evidence for acute pulmonary disease, CT scan of the brain revealed no acute intracranial process Patient was admitted to medical floor for further evaluation and treatment On 11/15/2024 patient is resting comfortably in bed. Patient had some agitation last night awaiting cardiology and orthopedic input. Social work services also consulted for discharge planning. Patient had low-grade temp last night blood culture ordered. Chest x-ray done in ER showing no evidence for acute pulmonary disease. UA also negative for infection. Current vital signs temp 97.9, heart rate 95, respiratory rate 16, blood pressure 138/74 with pulse ox of 96% on room air On 11/16/2024 patient is alert and oriented x 3. Patient has been cleared for discharge from consulting providers. No need for antibiotics. Patient denies chest pain or shortness of breath. Patient denies nausea vomiting or diarrhea. Patient denies any urinary burning or frequency Patient Condition at Discharge: Stable Plan - Discharge Summary Discharge Rx Participant: No New Discharge Prescriptions: New Acetaminophen Tab [Tylenol] 650 mg PO Q8H PRN tab PRN Reason: Fever And/ Or Pain Continue Gabapentin [Neurontin] 400 mg PO DAILY traZODone HCL 300 mg PO HS Rosuvastatin Calcium 5 mg PO DAILY clonazePAM 0.5 mg PO HS Pantoprazole Sodium 40 mg PO DAILY Sucralfate [Carafate] 1 gm PO ACHS Perphenazine 8mg 8 mg PO BID Vitamin E (Dl,Tocopheryl Acet) [Vitamin E (400 Iu = 180 mg)] 400 unit PO DAILY Levothyroxine Sodium [Synthroid] 75 mcg PO DAILY QUEtiapine [SEROquel] 400 mg PO HS Aspirin 81 mg PO DAILY #30 tab Melatonin 3 mg PO HS Fish Oil/Dha/Epa [Fish Oil 1,200 mg Fish Oil] 1 cap PO DAILY Apixaban [Eliquis] 2.5 mg PO BID #60 tab Sennosides/Docusate Sodium [Senna Plus 8.6-50 mg Softgel] 1 cap PO DAILY Discontinued Gabapentin [Neurontin] 800 mg PO HS HYDROcodone/APAP 7.5-325MG [[place] 7.5-325] 1 tab PO Q6HR PRN #28 tab PRN Reason: Pain Discharge Medication List Gabapentin [Neurontin] 400 mg PO DAILY 09/13/20 [History] Pantoprazole Sodium 40 mg PO DAILY 09/13/20 [History] Rosuvastatin Calcium 5 mg PO DAILY 09/13/20 [History] Sucralfate [Carafate] 1 gm PO ACHS 09/13/20 [History] clonazePAM 0.5 mg PO HS 09/13/20 [History] traZODone HCL 300 mg PO HS 09/13/20 [History] Perphenazine 8mg 8 mg PO BID 10/17/23 [History] Aspirin 81 mg PO DAILY #30 tab 10/19/23 [Rx] Fish Oil/Dha/Epa [Fish Oil 1,200 mg Fish Oil] 1 cap PO DAILY 11/09/24 [History] Melatonin 3 mg PO HS 11/09/24 [History] Vitamin E (Dl,Tocopheryl Acet) [Vitamin E (400 Iu = 180 mg)] 400 unit PO DAILY 11/09/24 [History] Apixaban [Eliquis] 2.5 mg PO BID #60 tab 11/12/24 [Rx] Levothyroxine Sodium [Synthroid] 75 mcg PO DAILY 11/13/24 [History] QUEtiapine [SEROquel] 400 mg PO HS 11/13/24 [History] Sennosides/Docusate Sodium [Senna Plus 8.6-50 mg Softgel] 1 cap PO DAILY 11/13/24 [History] Acetaminophen Tab [Tylenol] 650 mg PO Q8H PRN tab 11/16/24 [Rx] Follow up Appointment(s)/Referral(s): Sanjay Canales MD [Primary Care Provider] - 1-2 days (Please call to schedule follow up appointment) Andriy Francisco MD [STAFF PHYSICIAN] - 2 Weeks (Please call to schedule follow up appointment) Joaquin Gonsalez MD [STAFF PHYSICIAN] - 1 Week (Please call to schedule follow up appointment) Patient Instructions/Handouts: Altered Mental Status (ED) Discharge Disposition: HOME SELF-CARE
--- NOTE | 2024-11-17 15:57 | P.PN ---
Subjective Progress Note Date: 11/16/24 Principal diagnosis: Reason for follow-up is fever Patient is a 69-year-old female with a past medical history significant for chronic back pain degenerative disc disease stage III kidney disease in this patient who is status post right total hip arthroplasty by Dr. Turpin on 11/10/2024 and the patient was discharged home on 11/12/2024 patient presenting back to the hospital on 11/13/2024 concerning for weakness and mental status changes, patient did have a low-grade fever prompting this consultation. On today's evaluation that is 11/16/2024,the patient denies any fever or any chills, patient is breathing comfortably on room air, the patient denies chest pain shortness of breath and no significant cough, patient denies abdominal pain, no nausea vomiting or diarrhea. Patient mention feeling better wants to go home. Patient did have a white count of 5.10, creatinine 0.9 CRP is 4.10 procalcitonin less than 0.20 influenza RSV COVID testing negative blood culture so far negative Objective - Vital Signs Vital signs: Vital Signs Temp 99.0 F 11/16/24 07:00 Pulse 92 11/16/24 07:00 Resp 18 11/16/24 07:00 BP 123/74 11/16/24 07:00 Pulse Ox 94 L 11/16/24 07:00 FiO2 Intake & Output 11/15/24 11/16/24 11/16/24 18:59 06:59 18:59 Intake Total 118 118 Balance 118 118 Intake: Oral 118 118 Other: Voiding Method Toilet Toilet Toilet Diaper Diaper Diaper # Voids 3 4 # Bowel Movements 1 - Exam GENERAL DESCRIPTION: An elderly male lying in bed in no distress RESPIRATORY SYSTEM: Unlabored breathing , decreased breath sounds at bases HEART: S1 S2 regular rate and rhythm , ABDOMEN: Soft , no tenderness EXTREMITIES: No edema feet - Labs CBC & Chem 7: 11/16/24 04:38 11/16/24 04:38 Labs: Abnormal Lab Results - Last 24 Hours (Table) 11/16/24 11/16/24 Range/Units 04:38 04:38 RBC 2.83 L (4.10-5.20) X 10*6/uL Hgb 8.2 L (12.0-15.0) g/dL Hct 26.3 L (37.2-46.3) % MCHC 31.2 L (32.0-37.0) g/dL BUN/Creatinine Ratio 22.00 H (12.00-20.00) Ratio Calcium 8.4 L (8.7-10.3) mg/dL AST 45 H (13-35) U/L Total Protein 5.1 L (6.2-8.2) g/dL Albumin 3.2 L (3.8-4.9) g/dL Microbiology - Last 24 Hours (Table) 11/14/24 16:34 Blood Culture - Preliminary Blood Assessment and Plan (1) Fever Status: Acute Code(s): R50.9 - FEVER, UNSPECIFIED SNOMED Code(s): 566695266 Plan: 1patient with a 1 low-grade fever questionably reactive in this patient presented to hospital with weakness and fall recently did have a right hip arthroplasty the incision looks clean patient currently do not have any obvious localizing signs and symptoms and initial workup has been negative including a negative UA chest x-ray has been negative 2-patient did have a negative influenza RSV COVID PCR and procalcitonin, as no obvious focus of infection and the patient does not looknt does not look toxic and no obvious focus of infection we will monitor the patient closely off antibiotic therapy Dictation was produced using [employer] dictation software. please excuse any grammatical, word or spelling errors. Time with Patient: Less than 30
== END 2024-11-16 15:33 | disposition home or self-care (01) ==
LOC: EC 11:52 → 6NMEDSUR 14:20 → 4SSUR 20:45 → 6NMEDSUR 21:23
PROVIDERS: ADMIT Internal Medicine; ATTEND Internal Medicine
DX: R53.1 Weakness (principal); R41.82 Altered mental status, unspecified; R50.9 Fever, unspecified; I21.A1 Myocardial infarction type 2; N18.30 Chronic kidney disease, stage 3 unspecified; E78.5 Hyperlipidemia, unspecified; F31.9 Bipolar disorder, unspecified; F20.9 Schizophrenia, unspecified; E03.9 Hypothyroidism, unspecified; M19.90 Unspecified osteoarthritis, unspecified site; Z96.641 Presence of right artificial hip joint; Z79.01 Long term (current) use of anticoagulants; Z79.82 Long term (current) use of aspirin; Z79.890 Hormone replacement therapy; Z79.899 Other long term (current) drug therapy; Z88.5 Allergy status to narcotic agent; Z88.6 Allergy status to analgesic agent
CPT/HCPCS: 99285; 36415; 93005; 93306; 97162; 97165; 80053 ×4; 82140; 84484; 85025 ×4; 85610; 85730; 86140; 81001; 87040; 80306; 80320; 84145; 87636; 72170; 71046; 70450; G0378 ×5; Q0175 ×3; Q9957